=== PATIENT | female | born 1960 | race Caucasian/White ===

== ENCOUNTER 2017-05-23 11:36 | Emergency (ER) | payer MEDICARE ==
--- NOTE | 2017-05-23 12:12 | ERPHSYRPT ---
- History of Present Illness Time Seen by Provider: 05/23/17 12:00 Source: patient Exam Limitations: clinical condition Patient Subjective Stated Complaint: left foot pain and swelling for two weeks after injuring foot when she stepped on a lawn chair. saw family md but states it isn't getting any better. also has injection to right elbow 3 months ago and now is having pain, swelling and redness to elbow. also recently had drainage from elbow. denies any fever. Triage Nursing Assessment: ambulated to room per self. skin w/d, color normal. top of left foot is slightly swollen. good pedal pulse and cap refill. foot warm to touch. right elbow red and warm to touch. slight swelling noted. no drainage noted at this time. Physician History: PATIENT WITH A HISTORY OF RHEUMATOID ARTHRITIS STEPPED INTO FOLDING CHAIR WITH LEFT FOOT 3 WEEK AGO AND HAS PERSISTENT PAIN WITH SWELLING, AND PAIN UPON WEIGHT BEARING. PATIENT ALSO COMPLAINS OF WARMTH AND SWELLING BELOW RIGHT ELBOW INTERMITTENTLY FOR 2 MONTHS AFTER BEING INJECTED 2 MONTHS AGO. HAS BEEN PLACED ON 2 COURSES OF ANTIBIOTICS KEFLEX . DENIES FEVER OR CHILLS. Method of Injury: direct blow, twisted Occurred: other (3 WEEKS AGO) Quality: constant Severity of Pain-Max: moderate Severity of Pain-Current: moderate Lower Extremities Pain: foot: left Modifying Factors: Improves With: other (PAIN UPON WEIGHT BEARING) Associated Symptoms: other (PAIN UPON WEIGHT BEARING) Allergies/Adverse Reactions: No Known Drug Allergies Allergy (Verified 05/23/17 11:48) Home Medications: Albuterol/Ipratropium Mdi [Combivent Inhaler] 15 gm IH QID 04/24/13 [History ] Aspirin EC 81 mg [Ecotrin 81 mg] 81 mg PO DAILY 04/24/13 [History] Levothyroxine Sodium 75 Mcg [Synthroid 75 Mcg] 75 mcg PO DAILY 04/24/13 [ History] Lorazepam 1 mg [Ativan 1 MG] 1 mg PO HS PRN 04/24/13 [History] Methotrexate Sodium [Trexall] 40 mg PO WEEKLY 04/24/13 [History] Acetaminophen 325 mg [Tylenol 325 mg] 975 mg PO TID PRN 11/12/13 [History] Adalimumab [Humira] 40 mg SQ UD 10/04/17 [History] Ergocalciferol (Vitamin D2) [Vitamin D] 50,000 unit PO WEEKLY 05/23/17 [History] Metoprolol Succinate 50 mg [Toprol Xl 50 MG] 50 mg PO BID 05/23/17 [ History] Prednisone 5 mg [Deltasone 5 mg] 5 mg PO TID 05/23/17 [History] Hx Tetanus, Diphtheria Vaccination/Date Given: No Hx Influenza Vaccination/Date Given: No Hx Pneumococcal Vaccination/Date Given: No - Review of Systems Ears, Nose, & Throat: No Symptoms Respiratory: No Symptoms Cardiac: No Symptoms Abdominal/Gastrointestinal: No Symptoms Genitourinary Symptoms: No Symptoms Musculoskeletal: Injury, Joint Swelling - Past Medical History Pertinent Past Medical History: Yes Neurological History: No Pertinent History ENT History: No Pertinent History Cardiac History: Coronary Artery Disease, Hypertension, Myocardial Infarction ( [place]) Respiratory History: COPD Endocrine Medical History: Hypothyroidism Musculoskeletal History: Degenerative Disk Disease, Fibromyalgia, Rheumatoid Arthritis GI Medical History: GERD, Gallbladder Disease History: Renal Disease Psycho-Social History: Anxiety, Depression Female Reproductive Disorders: Other Other Medical History: barretts esoph - Past Surgical History Past Surgical History: Yes Neuro Surgical History: No Pertinent History Cardiac: Cardiac Catheterization, Cardiac Stent Respiratory: No Pertinent History Gastrointestinal: Other Genitourinary: No Pertinent History Musculoskeletal: No Pertinent History Female Surgical History: Hysterectomy, Tubal Ligation Other Surgical History: colonoscopy, egd,ANSON x two,MARIVEL tubal, tumor removed from back of head - Social History Smoking Status: Former smoker How long have you smoked: 30 Exposure to second hand smoke: No Drug Use: none Patient Lives Alone: Yes - Nursing Vital Signs Nursing Vital Signs: Initial Vital Signs Temperature 97.9 F 05/23/17 11:43 Pulse Rate 102 H 05/23/17 11:43 Respiratory Rate 16 05/23/17 11:43 Blood Pressure 158/92 05/23/17 11:43 O2 Sat by Pulse Oximetry 100 05/23/17 11:43 Pain Scale Pain Intensity 8 - Physical Exam General Appearance: no apparent distress Eyes, Ears, Nose, Throat Exam: normal ENT inspection Neck Exam: normal inspection Cardiovascular/Respiratory Exam: chest non-tender, normal breath sounds Foot Exam: right foot: soft tissue tenderness (MID TO DISTAL LEFT 2ND TO 5TH METATARSALS, MINIMAL SWELLING WITHOUT) Neuro/Tendon Exam: normal sensation, normal motor functions Mental Status Exam: alert, oriented x 3 Skin Exam: warm (RIGHT ELBOW OLECRANON WITH ERYTHEMA, WARMTH AND TENDERNESS, FROM RIGHT ELBOW, RIGHT RADIAL PULSE 2+) SpO2 Interpretation: normal SpO2: 100 Oxygen Delivery: Room Air - Radiology Exams Left Foot X-ray Interpretation: Discussed w/ radiologist, Negative, No Fracture Ordered Tests: Active Orders 24 hr Category Date Time Status FOOT (MINIMUM 3 VIEWS) Stat Exams 05/23/17 12:09 Completed - Progress Counseled pt/family regarding: diagnosis, need for follow-up, rad results - Departure Time of Disposition: 13:10 Departure Disposition: Home Clinical Impression: CONTUSION/STRAIN LEFT FOOT , RIGHT ELBOW OLECRANON BURSITIS Condition: Stable Critical Care Time: No Referrals: PEDRO JOYNER [Primary Care Provider] - Additional Instructions: ANTIBIOTIC AUGMENTIN 875MG TWICE DAILY FOR 10 DAYS. AMBULATE USING WALKER ASSISTANCE WITH NONWEIGHT BEARING LEFT FOOT FOR 1 WEEK. TYLENOL #3, EVERY 4 HOURS FOR PAIN. ELEVATE YOUR LEFT FOOT WHILE SITTING OR SUPINE POSITION FOR 1 WEEK. Prescriptions: Amox Tr/Potass Clav. 875 mg [Augmentin 875-125 Tablet] 875 mg PO BID #20 tablet Codeine Phosphate/APAP #3 [Tylenol #3 Tablet] 1 tab PO Q4-6HPRN PRN #15 tablet PRN Reason: Pain
--- NOTE | 2017-05-23 12:36 | XRAY ---
Indication: Pain following injury 3 weeks ago. Comparison: None 3 nonweightbearing views of the left foot demonstrates small heel spurs. Tiny curvilinear ossification near the base of the second proximal phalanx for which a fracture should be ruled out on a clinical basis. No other bony, articular, or soft tissue abnormalities.
[2017-05-23 13:46] VITALS: BP 121/84; PULSE 48; O2SAT 95
== END 2017-05-23 13:46 | disposition home or self-care (01) ==
LOC: ED 11:36
DX: S90.32XA Contusion of left foot, initial encounter (principal); S93.602A Unspecified sprain of left foot, initial encounter; M70.21 Olecranon bursitis, right elbow; W22.8XXA Striking against or struck by other objects, initial encounter
CPT/HCPCS: 73630; 99283

== ENCOUNTER 2017-05-28 12:20 | Emergency (ER) | payer MEDICARE ==
--- NOTE | 2017-05-28 12:53 | ERPHSYRPT ---
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 Triage Nursing Assessment: pt alert, resp easy,chest clear, skin w/d pink,now co pain to left lower leg, left wrist,and nose, had bleeding from nose at home, no bleeding now. ppp, no swelling to leg or wrist Physician History: The patient is a 57-year-old right-handed female with family complaining that she had been sleeping in a chair because she didn't feel well last night and when she got up from the chair to answer the door, she believes she passed out. The next thing she remembers is a group of people turning her over on the floor. She denies chest pain. She denies shortness of breath. She denies nausea or vomiting. She complains of head pain and nose pain. When she came to , she had blood clots in her nose. She also complains of left wrist pain and left shoulder pain. Her past medical history is significant for hypertension, anxiety, hypothyroidism, asthma, and rheumatoid arthritis. Witnessed: bystander Prior Episodes: single episode today Timing/Duration: today Precipitating Factors: lightheadedness Context: standing Loss of Consciousness: brief (seconds) Charcter of event(s): collapsed, became unresponsive Allergies/Adverse Reactions: No Known Drug Allergies Allergy (Verified 05/28/17 12:32) Home Medications: Albuterol/Ipratropium Mdi [Combivent Inhaler] 15 gm IH QID 04/24/13 [History ] Aspirin EC 81 mg [Ecotrin 81 mg] 81 mg PO DAILY 04/24/13 [History] Levothyroxine Sodium 75 Mcg [Synthroid 75 Mcg] 75 mcg PO DAILY 04/24/13 [ History] Lorazepam 1 mg [Ativan 1 MG] 1 mg PO HS PRN 04/24/13 [History] Methotrexate Sodium [Trexall] 40 mg PO WEEKLY 04/24/13 [History] Acetaminophen 325 mg [Tylenol 325 mg] 975 mg PO TID PRN 11/12/13 [History] Adalimumab [Humira] 40 mg SQ UD 05/23/17 [History] Ergocalciferol (Vitamin D2) [Vitamin D] 50,000 unit PO WEEKLY 05/23/17 [History] Metoprolol Succinate 50 mg [Toprol Xl 50 MG] 50 mg PO BID 05/23/17 [ History] Prednisone 5 mg [Deltasone 5 mg] 5 mg PO TID 05/23/17 [History] Hx Tetanus, Diphtheria Vaccination/Date Given: No Hx Influenza Vaccination/Date Given: No Hx Pneumococcal Vaccination/Date Given: No Immunizations Up to Date: Yes - Past Medical History Pertinent Past Medical History: Yes Neurological History: No Pertinent History ENT History: No Pertinent History Cardiac History: Coronary Artery Disease, Hypertension, Myocardial Infarction ( [place]) Respiratory History: COPD Endocrine Medical History: Hypothyroidism Musculoskeletal History: Degenerative Disk Disease, Fibromyalgia, Rheumatoid Arthritis GI Medical History: GERD, Gallbladder Disease History: Renal Disease Psycho-Social History: Anxiety, Depression Female Reproductive Disorders: Other Other Medical History: barretts esoph - Past Surgical History Past Surgical History: Yes Neuro Surgical History: No Pertinent History Cardiac: Cardiac Catheterization, Cardiac Stent Respiratory: No Pertinent History Gastrointestinal: Other Genitourinary: No Pertinent History Musculoskeletal: No Pertinent History Female Surgical History: Hysterectomy, Tubal Ligation Other Surgical History: colonoscopy, egd,ANSON x two,MARIVEL tubal, tumor removed from back of head - Social History Smoking Status: Never smoker How long have you smoked: 30 Exposure to second hand smoke: No Drug Use: none Patient Lives Alone: No - Female History Hx Last Menstrual Period: post - Review of Systems Constitutional: No Fever, No Chills Eyes: No Symptoms Ears, Nose, & Throat: No Symptoms Respiratory: No Cough, No Dyspnea Cardiac: No Chest Pain, No Edema, No Syncope Abdominal/Gastrointestinal: No Abdominal Pain, No Nausea, No Vomiting, No Diarrhea Genitourinary Symptoms: No Dysuria Musculoskeletal: Fall, Injury, No Back Pain, No Neck Pain Skin: No Rash Neurological: Headache Psychological: No Symptoms Endocrine: No Symptoms Hematologic/Lymphatic: No Symptoms Immunological/Allergic: No Symptoms All Other Systems: Reviewed and Negative Physical Exam - Nursing Vital Signs Nursing Vital Signs: Initial Vital Signs Temperature 98.6 F 05/28/17 12:23 Pulse Rate 95 H 05/28/17 12:23 Respiratory Rate 18 05/28/17 12:23 Blood Pressure 151/96 05/28/17 12:23 O2 Sat by Pulse Oximetry 97 05/28/17 12:23 Pain Scale Pain Intensity 5 - Gilberts Coma Scale Best Eye Response (Jesu): (4) open spontaneously Best Verbal Response (Gilberts): (5) oriented Best Motor Response (Jesu): (6) obeys commands Jesu Total: 15 - Physical Exam General Appearance: no apparent distress, alert Eye Exam: bilateral eye: PERRL, EOMI Ears, Nose, Throat Exam: other (nose is mildly swollen and tender.) Neck Exam: normal inspection, non-tender, supple, full range of motion Respiratory: normal breath sounds, lungs clear, No chest tenderness, No respiratory distress Cardiovascular: regular rate/rhythm, capillary refill <2 sec, No murmur, No pulse deficit Gastrointestinal: soft, No tenderness, No distention, No mass Pelvic Exam: not done Rectal Exam: not done Back Exam: normal inspection, normal range of motion, No CVA tenderness, No vertebral tenderness Extremity Exam: other (Examination of the left wrist reveals pain with movement , bruising, and reduced range of motion. 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 Exam: normal speech, PERRL, No facial droop Coordination/Gait: normal finger to nose Motor/Sensory: no motor deficit, no sensory deficit, no pronator drift Skin Exam: normal color, warm, dry, No rash SpO2 Interpretation: normal SpO2: 97 Oxygen Delivery: Room Air - Radiology Exams Left Shoulder X-ray Interpretation: Teleradiologist Report, Negative (Per Dr Aguilar) Left Wrist X-ray Interpretation: Teleradiologist Report, Negative (Per Dr Aguilar) - CT Exams Head CT Interpretation: Negative (Dr Aguilar) Cervical Spine CT Interpretation: Negative (per Dr Aguilar) Ordered Tests: Active Orders 24 hr Category Date Time Status Accucheck STAT Care 05/28/17 13:11 Active Circular Tank Cooper STAT Care 05/28/17 13:13 Active EKG-ER Only STAT Care 05/28/17 13:11 Active IV Insertion STAT Care 05/28/17 13:11 Active Orthostatic Vital Signs STAT Care 05/28/17 13:11 Active Pulse Oximetry (ED) STAT Care 05/28/17 13:11 Active CERVICAL SPINE WO CONTRAST [CT] Stat Exams 05/28/17 13:12 Completed HEAD WITHOUT CONTRAST [CT] Stat Exams 05/28/17 13:12 Completed SHOULDER Stat Exams 05/28/17 13:14 Completed WRIST (MIN 3 VIEWS) Stat Exams 05/28/17 13:14 Completed CBC W DIFF Stat Lab 05/28/17 13:35 Completed CMP Stat Lab 05/28/17 13:35 Completed CULTURE,URINE Stat Lab 05/28/17 13:35 Received ETHYL ALCOHOL Stat Lab 05/28/17 13:35 Completed TROPONIN Stat Lab 05/28/17 13:35 Completed UA W/ MICROSCOPIC Stat Lab 05/28/17 13:35 Completed Medication Summary Discontinued Medications Generic Name Dose Route Start Last Admin Trade Name Freq PRN Reason Stop Dose Admin Sodium Chloride 1,000 mls @ 999 mls/hr 05/28/17 13:11 05/28/17 14:43 Sodium Chloride 0.9% 1000 Ml IV 05/28/17 14:11 999 mls/hr .Q1H1M STA Administration Sodium Chloride Confirm 05/28/17 13:48 Sodium Chloride 0.9% 1000 Ml Administered 05/28/17 13:49 Dose 1,000 mls @ ud .ROUTE .STK-MED ONE Ceftriaxone Sodium/Dextrose 1 g in 50 mls @ 100 mls/hr 05/28/17 14:37 14:43 Rocephin 1 Gm-D5w 50 Ml Bag IV 05/28/17 15:06 100 mls/hr STAT STA Administration Ceftriaxone Sodium/Dextrose Confirm 05/28/17 14:40 Rocephin 1 Gm-D5w 50 Ml Bag Administered 05/28/17 14:41 Dose 1 g in 50 mls @ ud IV .STK-MED ONE Lab/Rad Data: Laboratory Result Diagrams 05/28/17 13:35 05/28/17 13:35 Laboratory Results 05/28/17 05/28/17 05/28/17 Range/Units 13:35 13:35 13:35 WBC 15.1 H (4.0-10.5) K/mm3 RBC 4.02 L (4.1-5.4) M/mm3 Hgb 10.6 L (12.0-16.0) gm/dl Hct 35.7 (35-47) % MCV 88.8 (78-100) fl MCH 26.3 (26-32) pg MCHC 29.7 L (32-36) g/dl RDW 16.3 H (11.5-14.0) % Plt Count 277 (150-450) K/mm3 MPV 12.2 H (6-9.5) fl Gran % 85.7 H (36.0-66.0) % Lymphocytes % 8.9 L (24.0-44.0) % Monocytes % 5.1 (0.0-12.0) % Eosinophils % 0.0 (0.00-5.0) % Basophils % 0.3 (0.0-0.4) % Basophils # 0.04 (0-0.4) Sodium 143 (136-145) mEq/L Potassium 4.5 (3.5-5.1) mEq/L Chloride 106 (98-107) mEq/L Carbon Dioxide 22.2 (21-32) mEq/L Anion Gap 18.9 H (5-15) MEQ/L BUN 15 (9-20) mg/dL Creatinine 1.39 H (0.55-1.30) mg/dl Estimated GFR 41 ML/MIN Glucose 133 H (70-110) MG/DL Calcium 9.2 (8.5-10.1) mg/dL Total Bilirubin 0.80 (0.2-1.0) mg/dL AST 13 L (15-37) U/L ALT 15 (12-78) U/L Alkaline Phosphatase 41 L (46-116) U/L Troponin I < 0.017 (0.000-0.056) ng/ml Serum Total Protein 7.7 (6.4-8.2) gm/dL Albumin 3.6 (3.4-5.0) g/dL Ur Collection Type Urine Color (YELLOW) Urine Appearance (CLEAR) Urine pH (5-6) Ur Specific [place] (1.005-1.025) Urine Protein (Negative) Urine Ketones (NEGATIVE) Urine Blood (0-5) Cand[place]/ul Urine Nitrite (NEGATIVE) Urine Bilirubin (NEGATIVE) Urine Urobilinogen (0-1) mg/dL Ur Leukocyte Esterase (NEGATIVE) Urine Microscopic WBC (0-5) /HPF Ur Epithelial Cells (FEW) /HPF Urine Bacteria (NEGATIVE) /HPF Urine Culture Reflexed (NO) Urine Glucose (NEGATIVE) mg/dL Ethyl Alcohol < 0.010 (0.00-0.01) % Specimen Received 05/28/17 Range/Units 13:35 WBC (4.0-10.5) K/mm3 RBC (4.1-5.4) M/mm3 Hgb (12.0-16.0) gm/dl Hct (35-47) % MCV (78-100) fl MCH (26-32) pg MCHC (32-36) g/dl RDW (11.5-14.0) % Plt Count (150-450) K/mm3 MPV (6-9.5) fl Gran % (36.0-66.0) % Lymphocytes % (24.0-44.0) % Monocytes % (0.0-12.0) % Eosinophils % (0.00-5.0) % Basophils % (0.0-0.4) % Basophils # (0-0.4) Sodium (136-145) mEq/L Potassium (3.5-5.1) mEq/L Chloride (98-107) mEq/L Carbon Dioxide (21-32) mEq/L Anion Gap (5-15) MEQ/L BUN (9-20) mg/dL Creatinine (0.55-1.30) mg/dl Estimated GFR ML/MIN Glucose (70-110) MG/DL Calcium (8.5-10.1) mg/dL Total Bilirubin (0.2-1.0) mg/dL AST (15-37) U/L ALT (12-78) U/L Alkaline Phosphatase (46-116) U/L Troponin I (0.000-0.056) ng/ml Serum Total Protein (6.4-8.2) gm/dL Albumin (3.4-5.0) g/dL Ur Collection Type CCMS Urine Color YELLOW (YELLOW) Urine Appearance CLEAR (CLEAR) Urine pH 6.0 (5-6) Ur Specific [place] 1.010 (1.005-1.025) Urine Protein NEGATIVE (Negative) Urine Ketones NEGATIVE (NEGATIVE) Urine Blood NEGATIVE (0-5) [place]/ul Urine Nitrite NEGATIVE (NEGATIVE) Urine Bilirubin NEGATIVE (NEGATIVE) Urine Urobilinogen NORMAL (0-1) mg/dL Ur Leukocyte Esterase 1+ (NEGATIVE) Urine Microscopic WBC 2-5 (0-5) /HPF Ur Epithelial Cells RARE (FEW) /HPF Urine Bacteria MODERATE (NEGATIVE) /HPF Urine Culture Reflexed YES (NO) Urine Glucose NEGATIVE (NEGATIVE) mg/dL Ethyl Alcohol (0.00-0.01) % Specimen Received 05-28-17 1411 - Progress Progress: improved Counseled pt/family regarding: lab results, diagnosis, need for follow-up, rad results - Departure Time of Disposition: 15:46 Departure Disposition: Home Clinical Impression: UTI (urinary tract infection), Syncope, Multiple contusions Condition: Stable Critical Care Time: No Referrals: PEDRO JOYNER [Primary Care Provider] - Additional Instructions: You had a fainting episode that likely was triggered by a urinary tract infection. You were given fluids and Rocephin 1 g by IV in the ER. Take ciprofloxacin 500 mg twice a day for 7 days. Follow-up in 2-3 days. Prescriptions: Ciprofloxacin [Cipro 500 MG] 1 tab PO BID #14 tablet
[2017-05-28] MEDS ORDERED: Sodium Chloride 0.9% 1000 ML 1,000 ML IV STA (13:11)
[2017-05-28 13:42] LABS: BASOPHIL % 0.3 % (0.0-0.4); Granulocytes % 85.7 % (36.0-66.0); Lymphocytes % 8.9 % (24.0-44.0); Mean Cell Volume 88.8 fl (78-100); Mean Platelet Volume 12.2 fl (6-9.5); Monocytes % 5.1 % (0.0-12.0); Platelet Count 277 K/mm3 (150-450); Red Blood Count 4.02 M/mm3 (4.1-5.4); Red Cell Distribution Width 16.3 % (11.5-14.0); White Blood Count 15.1 K/mm3 (4.0-10.5)
[2017-05-28 13:44] LABS: Mean Corpuscular Hemoglobin 26.3 pg (26-32)
[2017-05-28] MEDS ORDERED: Sodium Chloride 0.9% 1000 ML 1,000 ML ONE (13:48)
[2017-05-28 14:06] LABS: ALBUMIN 3.6 g/dL (3.4-5.0); ALKALINE PHOSPHATASE 41 U/L (46-116); ANION GAP 18.9 MEQ/L (5-15); BLOOD UREA NITROGEN 15 mg/dL (9-20); CHLORIDE 106 mEq/L (98-107); Carbon Dioxide 22.2 mEq/L (21-32); ETHYL ALCOHOL < 0.010 % (0.00-0.01); Glucose 133 MG/DL (70-110); Potassium 4.5 mEq/L (3.5-5.1); SGOT/AST 13 U/L (15-37); SGPT/ALT 15 U/L (12-78); SODIUM 143 mEq/L (136-145); Total Protein 7.7 gm/dL (6.4-8.2)
[2017-05-28 14:11] LABS: Bilirubin NEGATIVE (NEGATIVE); Blood NEGATIVE Ery/ul (0-5); COMPLETE URINE MICROSCOPIC? YES; Collection Type CCMS; Glucose NEGATIVE (NEGATIVE); Leukocyte Esterase 1+ (NEGATIVE)
[2017-05-28 14:12] LABS: ADD URINE CULTURE? YES (NO); Bacteria MODERATE /HPF (NEGATIVE); Epithelial Cells RARE /HPF (FEW)
--- NOTE | 2017-05-28 14:34 | XRAY ---
Indication: Head injury following syncope. Multiple contiguous axial images obtained through the head without contrast. Comparison: February 07, 2012. Again normal appearing brain parenchyma, ventricles, and bony calvarium. Visualized paranasal sinuses and mastoid air cells are pneumatized and clear. Impression: Stable normal CT head without contrast exam. CT DI 48.95
[2017-05-28] MEDS ORDERED: ROCEPHIN 1 Gm-D5w 50 ml Bag** 1 G/50 ML IVPB IV STA (14:37)
--- NOTE | 2017-05-28 14:37 | XRAY ---
ndication: Head injury following syncope. Multiple contiguous axial images obtained through the cervical spine. Sagittal and coronal reformatted images obtained. Comparison: None. Axial images negative for acute fracture, suspicious bony lesions, or spinal canal stenosis. Minimal atlantoaxial degenerative changes. Sagittal and coronal reformatted images demonstrates cervical lordotic straightening, positional versus paraspinal spasm. Disc spaces maintained. No acute compression fracture, subluxation, or jumped facet. Normal-appearing craniocervical junction. Visualized noncontrasted soft tissues demonstrate mild carotid calcifications, left greater than right. CT head reported separately. Impression: Cervical lordotic straightening, positional versus paraspinal spasm. Negative acute fracture/subluxation. CT DI 120.65
--- NOTE | 2017-05-28 14:39 | XRAY ---
Indication: Pain following fall. Comparison: None 3 views of the left shoulder demonstrates mild acromioclavicular degenerative arthropathy. No other bony, articular, or soft tissue abnormalities.
[2017-05-28] MEDS ORDERED: ROCEPHIN 1 Gm-D5w 50 ml Bag** 1 G/50 ML IVPB IV ONE (14:40)
--- NOTE | 2017-05-28 14:42 | XRAY ---
Indication: Pain following fall. Comparison: None 3 views of the left wrist demonstrates mild degenerative changes of the first metacarpal multangular articulation, radiocarpal joint space narrowing, and distal ulnar subcortical cyst. No other bony, articular, or soft tissue abnormalities.
[2017-05-28 15:16] VITALS: PULSE 68
[2017-05-28 15:59] VITALS: BP 134/78; O2SAT 99
== END 2017-05-28 16:00 | disposition home or self-care (01) ==
LOC: ED 12:20
DX: N39.0 Urinary tract infection, site not specified (principal); R55 Syncope and collapse; S00.33XA Contusion of nose, initial encounter; S60.212A Contusion of left wrist, initial encounter; S40.012A Contusion of left shoulder, initial encounter; I10 Essential (primary) hypertension; E03.9 Hypothyroidism, unspecified; F41.9 Anxiety disorder, unspecified; R51 Headache; M25.532 Pain in left wrist; M25.512 Pain in left shoulder; Z79.899 Other long term (current) drug therapy
CPT/HCPCS: 93041; 96365; 99284; 36000; 82962; 96360; 93005; 81000; 36415; 87186; 85025; 87077; 80053; 84484; 87086; 73110; 73030; 70450; 72125; G0481; J0696

== ENCOUNTER 2018-07-16 12:15 | Emergency (ER) | payer MEDICARE ==
--- NOTE | 2018-07-16 12:56 | ERPHSYRPT ---
- History of Present Illness Time Seen by Provider: 07/16/18 12:43 Source: patient Exam Limitations: no limitations Patient Subjective Stated Complaint: pt states "I am having severe lower back pain. The pain is shooting down into my left leg." Triage Nursing Assessment: PT alert and oriented X 3, skin pwd. Pt ambulates with a limp. PT in no apparent respiratory distress. no bruising or swelling noted to lower left back. Physician History: This is a 58-year-old white female with history of coronary artery disease, high blood pressure, COPD, hypothyroidism,, degenerative disc disease, rheumatoid arthritis, fibromyalgia. Patient states she has had a history of chronic back pain she states for the past month she's been having severe back pain located in the left lumbar region radiating down her left leg she states she occasionally has numbness in the area. She apparently seen by her family Dr. secondary to the same she was placed on gabapentin and a muscle relaxer she states that this is not helping her pain. She states she has not been able to get back in to see her family doctor. Past medical history includes coronary artery disease, high blood pressure, myocardial infarction, COPD, hypothyroidism, degenerative disc disease, fibromyalgia, rheumatoid arthritis, GERD, gallbladder disease, renal disease, anxiety, depression, Lincoln's esophagitis. Past surgical history includes cardiac catheter, cardiac stent, hysterectomy, tubal ligation, colonoscopy, EGD, ANSON, I lateral tubal., Tumors removed from the back of her head Social history negative tobacco alcohol or illicit drug use. . . Timing/Duration: other (symptoms chronic worse for the last month) Severity: moderate Modifying Factors: Improves With: nothing Associated Symptoms: No nausea, No vomiting, No abdominal pain, No shortness of breath, No heartburn, No diaphoresis, No cough, No chills, No chest pain, No fever, No headaches, No loss of appetite, No malaise, No rash, No syncope, No seizure, No weakness Allergies/Adverse Reactions: No Known Drug Allergies Allergy (Verified 05/28/17 12:32) Home Medications: Albuterol/Ipratropium Mdi [Combivent Inhaler] 15 gm IH QID 04/24/13 [History ] Aspirin EC 81 mg [Ecotrin 81 mg] 81 mg PO DAILY 04/24/13 [History] Levothyroxine Sodium 75 Mcg [Synthroid 75 Mcg] 75 mcg PO DAILY 04/24/13 [ History] Lorazepam 1 mg [Ativan 1 MG] 1 mg PO HS PRN 04/24/13 [History] Acetaminophen 325 mg [Tylenol 325 mg] 975 mg PO TID PRN 11/12/13 [History] Ergocalciferol (Vitamin D2) [Vitamin D] 50,000 unit PO WEEKLY 05/23/17 [History] Metoprolol Succinate 50 mg [Toprol Xl 50 MG] 50 mg PO BID 05/23/17 [ History] Prednisone 5 mg [Deltasone 5 mg] 5 mg PO TID 05/23/17 [History] Hydroxychloroquine Sulfate [Plaquenil] 200 mg PO BID 06/03/18 [History] Hx Tetanus, Diphtheria Vaccination/Date Given: Yes Hx Influenza Vaccination/Date Given: Yes Hx Pneumococcal Vaccination/Date Given: No Immunizations Up to Date: Yes - Review of Systems Constitutional: No Fever, No Chills Eyes: No Symptoms Ears, Nose, & Throat: No Symptoms Respiratory: No Cough, No Dyspnea Cardiac: No Chest Pain, No Edema, No Syncope Genitourinary Symptoms: No Dysuria Musculoskeletal: Back Pain (Pain left lumbar region radiating down her left hip) Skin: No Rash Neurological: No Dizziness, No Focal Weakness, No Sensory Changes Psychological: No Symptoms Endocrine: No Symptoms All Other Systems: Reviewed and Negative - Past Medical History Pertinent Past Medical History: Yes Neurological History: No Pertinent History ENT History: No Pertinent History Cardiac History: Coronary Artery Disease, Hypertension, Myocardial Infarction ( [facility]) Respiratory History: COPD Endocrine Medical History: Hypothyroidism Musculoskeletal History: Degenerative Disk Disease, Fibromyalgia, Rheumatoid Arthritis GI Medical History: GERD, Gallbladder Disease History: Renal Disease Psycho-Social History: Anxiety, Depression Female Reproductive Disorders: Other Other Medical History: barretts esoph. lupus - Past Surgical History Past Surgical History: Yes Neuro Surgical History: No Pertinent History Cardiac: Cardiac Catheterization, Cardiac Stent Respiratory: No Pertinent History Gastrointestinal: Other Genitourinary: No Pertinent History Musculoskeletal: No Pertinent History Female Surgical History: Hysterectomy, Tubal Ligation Other Surgical History: colonoscopy, egd,ANSON x two,MARIVEL tubal, tumor removed from back of head - Social History Smoking Status: Former smoker How long have you smoked: 30 Exposure to second hand smoke: No Drug Use: none Patient Lives Alone: Yes - Female History Hx Last Menstrual Period: no more Hx Now: No - Nursing Vital Signs Nursing Vital Signs: Initial Vital Signs Temperature 97.6 F 07/16/18 12:27 Pulse Rate 64 07/16/18 12:27 Respiratory Rate 18 07/16/18 12:27 Blood Pressure 202/97 07/16/18 12:27 O2 Sat by Pulse Oximetry 98 07/16/18 12:27 Pain Scale Pain Intensity [Left Back] 7 Pain Intensity 5 - Physical Exam General Appearance: no apparent distress, alert Eye Exam: PERRL/EOMI, eyes nml inspection Ears, Nose, Throat Exam: normal ENT inspection, TMs normal, pharynx normal, moist mucous membranes Neck Exam: normal inspection, non-tender, supple, full range of motion Respiratory Exam: normal breath sounds, lungs clear, No respiratory distress Cardiovascular Exam: regular rate/rhythm, normal heart sounds, normal peripheral pulses Gastrointestinal/Abdomen Exam: soft, normal bowel sounds, No tenderness, No mass Back Exam: other (tender with palpation left lumbar region) Extremity Exam: normal inspection, normal range of motion, pelvis stable Neurologic Exam: alert, oriented x 3, cooperative, 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 Who has a history of chronic back pain arrives with complaint of worsening of her back pain symptoms for one month states she's been having sharp shooting pains down the posterior left hip sometimes numbness in the left lower leg. Patient arrives she has tenderness with palpation in the left lumbar region patient is able to sit with her back flexed to 90 at the hips and her knees extended without problems. Sensation is intact to the lower extremities she has had no problems with her bowel or bladder. Will go ahead and obtain x-ray of the patient's lumbar spine. Patient apparently has already been placed on gabapentin and muscle relaxers by her family doctor she states she is almost out of muscle relaxers. Patient does state that she is driving and she has this history of Lincoln's so will avoid injectables patient states she is already on steroids secondary to her arthritis. 07/16/18 14:24 Lumbar spine complete 4 view X-ray Impression: 1. A metallic, H-shaped orthopedic device is seen projected over the spinous process of L4 and L5 in the midline. Correlate with prior surgical history. 2. Grade 1 anterior spondylolisthesis of L4 over L5 (about 9 mm and (without spondylolysis). Some mild lower lumbar facet joint arthropathy at L4-L5 and L5- S2 3. Approximately 23A rotary levoscoliosis centered at L1 4. The LPO image reveals a suggestive of a small focal saccular aneurysm within the proximal infrarenal abdominal aorta. This measures about 3.4 cm in diameter. Consider a CT of the abdomen and pelvis with IV contrast as a new baseline. 5. Bone demineralization is seen. Also some asymmetric enlargement of the transverse process of L5 on the right which pseudo-articulates with the upper right side of the sacrum. This represents a congenitaldevelopmental variant. The patient appears to be stable I have discussed the patient's x-ray findings with her as well as the possible aneurysm 3.4 cm in the proximal infrarenal abdominal aorta. I have offered to obtain appropriate laboratory work and obtain CT of this however the patient does not want to do this here she states she will follow-up with her family doctor. Will discharge patient. Diagnosis lumbar pain. Sciatica. Incidental finding 3.4 cm possible infrarenal aneurysm. - Departure Time of Disposition: 14:28 Departure Disposition: Home Clinical Impression: incidental possible 3.5 cm aortic aneury Back pain Qualifiers: Back pain location: low back pain Chronicity: acute Back pain laterality: left Sciatica presence: with sciatica Sciatica laterality: sciatica of left side Qualified Code(s): M54.42 - Lumbago with sciatica, left side Condition: Fair Critical Care Time: No Referrals: PEDRO JOYNER [Primary Care Provider] - Instructions: Low Back Pain (DC), Sciatica (DC) Additional Instructions: Return home. [place] as prescribed. Flexeril as prescribed. Follow-up with your family doctor. You have a possible 3.5 cm aneurysm in your proximal aorta. This will need follow-up and imaging. You have decided follow-up with your family doctor for this, it is recommended you do so. Return for acute distress or for severe symptoms.
--- NOTE | 2018-07-16 14:08 | XRAY ---
Exam: Five-view lumbar spine series from 07/16/2018. Comparison: C-arm images of the lower lumbar spine from 08/29/2013. Indication: 58-year-old female with low back pain radiating down left hip. Findings: AP, lateral, both oblique images, and a coned-down lateral film of the lumbosacral junction were obtained. There are 5 [id number] lumbar-type vertebra. An H-shaped metallic orthopedic device is seen overlying the spinous processes of L4 and L5 on the lateral images. The bones are demineralized. There is approximately a 23 rotary levoscoliosis centered at L1. There is asymmetric enlargement of the right L5 transverse process which pseudo-articulates with the upper right side of the sacrum. This represents a congenital/developmental variant. The sacroiliac joints reveal minimal vacuum phenomena within their inferior aspects. The oblique images reveal no evidence of spondylolysis. I note some vacuum phenomena within the right L4-L5 and left L5-S1 facet joints. There is grade 1 anterior spondylolisthesis of L4 over L5 (about 9 mm) without spondylolysis. On the LPO image, there is a focal bulge of the infrarenal abdominal aorta which measures roughly 3.4 cm in diameter. This may reflect a small focal saccular aneurysm. This is centered at the upper L3 level. It is also possible that this is due to some tortuosity, but I believe this is less likely. A slight left lateral bulge of the distal abdominal aorta is seen on coronal image #[address] study of the abdomen and pelvis on 03/08/2010. Small anterior vertebral endplate spurs are seen throughout the lumbar spine on the lateral radiographs. Impression: 1. A metallic, H-shaped orthopedic device is seen projected over the spinous processes of L4 and L5 in the midline. Correlate with prior surgical history. 2. Grade 1 anterior spondylolisthesis of L4 over L5 (about 9 mm) without spondylolysis. I do note some mild lower lumbar facet joint arthropathy at L4-L5 and L5-S1. 3. Approximately 23 rotary levoscoliosis centered at L1. 4. The LPO image reveals a suggestion of a small focal saccular aneurysm within the proximal infrarenal abdominal aorta. This measures about 3.4 cm in diameter. Consider a CT of the abdomen and pelvis with IV contrast as a new baseline. 5. Bone demineralization is seen. I also note some asymmetric enlargement of the transverse process of L5 on the right which pseudo-articulates with the upper right side of the sacrum. This represents a congenital/developmental variant.
[2018-07-16 14:43] VITALS: BP 184/88; PULSE 56; O2SAT 97
== END 2018-07-16 14:55 | disposition home or self-care (01) ==
LOC: ED 12:15
DX: M54.42 Lumbago with sciatica, left side (principal); M43.16 Spondylolisthesis, lumbar region; Z79.82 Long term (current) use of aspirin; Z79.899 Other long term (current) drug therapy
CPT/HCPCS: 72110; 99283

== ENCOUNTER 2019-03-12 11:31 | Day surgery (SDC) | payer MEDICARE ==
[2013-05-08 13:53] VITALS: BP 115/71
[2019-03-12] MEDS ORDERED: Decadron 4 MG INJ IJ ONE (11:32)
[2019-03-12] MEDS ORDERED: Ketamine HCl 50 MG/ML IJ ONE (11:32)
[2019-03-12] MEDS ORDERED: Xylocaine 1% Vial 30 ML PF IJ ONE (11:32)
[2019-03-12] MEDS ORDERED: DIPRIVAN 200 MG/20 ML IV ONE (11:32)
--- NOTE | 2019-03-12 14:16 | XRAY ---
Indication: Left piriformis injection. Intraoperative fluoroscopy was provided for 15 seconds. Single digital spot images submitted for interpretation demonstrates posterior needle tip projecting over the expected left piriformis muscle. Small amount of contrast injected for needle tip placement. Correlate with intraoperative findings/report.
--- NOTE | 2019-03-12 14:18 | XRAY ---
15 seconds fluoroscopy time in surgery for left piriformis injection.
[2019-03-12] MEDS ORDERED: Lactated Ringers 1,000 ML IV ONE (15:55)
== END 2019-03-12 13:30 | disposition home or self-care (01) ==
LOC: SDC-PAIN 11:31
PROVIDERS: ATTEND Psychiatry & Neurology Pain Medicine
DX: M79.18 Myalgia, other site (principal); I10 Essential (primary) hypertension; N18.9 Chronic kidney disease, unspecified; K21.9 Gastro-esophageal reflux disease without esophagitis; M06.9 Rheumatoid arthritis, unspecified; F41.9 Anxiety disorder, unspecified; Z79.899 Other long term (current) drug therapy
CPT/HCPCS: 72020; 77002; J1100; J2001; J2704

== ENCOUNTER 2019-03-26 07:50 | Day surgery (SDC) | payer MEDICARE ==
[2013-05-08 13:53] VITALS: BP 115/71
[2019-03-26] MEDS ORDERED: Xylocaine 1% Vial 30 ML PF IJ ONE (07:51)
[2019-03-26] MEDS ORDERED: Decadron 4 MG INJ IV ONE (07:51)
[2019-03-26] MEDS ORDERED: Ketamine HCl 50 MG/ML ONE (09:50)
[2019-03-26] MEDS ORDERED: DIPRIVAN 200 MG/20 ML IV ONE (09:50)
--- NOTE | 2019-03-26 10:51 | XRAY ---
Indication: Left piriformis injection. Intraoperative fluoroscopy was provided for 15 seconds. Single digital spot image submitted for interpretation demonstrates posterior needle tip projecting over the expected left piriformis muscle. Small amount of contrast injected for needle tip placement. Correlate with intraoperative findings/report.
--- NOTE | 2019-03-26 10:51 | XRAY ---
15 seconds fluoroscopy time in surgery for left piriformis muscle injection.
[2019-03-26] MEDS ORDERED: Lactated Ringers 1,000 ML IV ONE (13:44)
== END 2019-03-26 10:22 | disposition home or self-care (01) ==
LOC: SDC-PAIN 07:50
PROVIDERS: ATTEND Psychiatry & Neurology Pain Medicine
DX: M79.18 Myalgia, other site (principal); I10 Essential (primary) hypertension; I12.9 Hypertensive chronic kidney disease with stage 1 through stage 4 chronic kidney disease, or unspecified chronic kidney disease; N18.9 Chronic kidney disease, unspecified; K21.9 Gastro-esophageal reflux disease without esophagitis; M06.9 Rheumatoid arthritis, unspecified; F41.8 Other specified anxiety disorders; Z79.899 Other long term (current) drug therapy
CPT/HCPCS: 20552; 72020; 77002; J1100; J2001; J2704; Q9966

== ENCOUNTER 2019-04-23 11:15 | Day surgery (SDC) | payer MEDICARE ==
[2013-05-08 13:53] VITALS: BP 115/71
[2019-04-23] MEDS ORDERED: Depo-Medrol 40 MG/ML IM ONE (11:16)
[2019-04-23] MEDS ORDERED: Sodium Chloride 0.9(Preservative Free) 10 ML IJ ONE (11:16)
[2019-04-23] MEDS ORDERED: Ketamine HCl 50 MG/ML ONE (12:16)
[2019-04-23] MEDS ORDERED: DIPRIVAN 200 MG/20 ML IV ONE (12:16)
--- NOTE | 2019-04-23 13:37 | XRAY ---
33 seconds fluoroscopy time in surgery for left L4-S1 ANSON.
--- NOTE | 2019-04-23 13:40 | XRAY ---
Indication: L4-S1 ANSON. Intraoperative fluoroscopy was provided for 33 seconds. 3 digital spot images submitted for interpretation demonstrates posterior needle tip projecting over the expected course of the left L4 nerve root. Small amount of contrast injected for needle tip placement. Correlate with intraoperative findings/report. Incidental L4-L5 posterior spinous process fixation hardware.
[2019-04-23] MEDS ORDERED: Lactated Ringers 1,000 ML IV ONE (15:53)
== END 2019-04-23 12:43 | disposition home or self-care (01) ==
LOC: SDC-PAIN 11:15
PROVIDERS: ATTEND Psychiatry & Neurology Pain Medicine
DX: M54.16 Radiculopathy, lumbar region (principal); I12.9 Hypertensive chronic kidney disease with stage 1 through stage 4 chronic kidney disease, or unspecified chronic kidney disease; N18.9 Chronic kidney disease, unspecified; K21.9 Gastro-esophageal reflux disease without esophagitis; M06.9 Rheumatoid arthritis, unspecified; F41.9 Anxiety disorder, unspecified; Z79.899 Other long term (current) drug therapy
CPT/HCPCS: 72100; 77003; J1030; J2704

== ENCOUNTER 2020-09-13 11:48 | Emergency (ER) | payer MEDICARE ==
[2020-09-13] MEDS ORDERED: Sodium Chloride 0.9% 1000 ML 1,000 ML IV SCH (12:15)
[2020-09-13] MEDS ORDERED: MORPHINE SULFATE 2 MG INJ IV ONE (12:19)
[2020-09-13] MEDS ORDERED: Sodium Chloride 0.9% 1000 ML 1,000 ML ONE (12:20)
--- NOTE | 2020-09-13 12:22 | ERPHSYRPT ---
- History of Present Illness Time Seen by Provider: 09/13/20 12:18 Historian: patient Exam Limitations: no limitations Patient Subjective Stated Complaint: pt states sunday after turning to get something in car and started having right quad pain, she denies back pain, no b urning with urination, no nausea, Triage Nursing Assessment: pt walked in, resp labored with excertion, she states its from pain, face masl in place,skin w/d/p. no edema, abd soft but tender Physician History: Patient is a 60-year-old female presents to our ED with complaints of right flank pain. Patient states pain started 3 days ago on Sunday. Patient was turning in her car when the pain started. Since then patient has been experiencing the same pain. Patient has had trouble sleeping. Pain worse with movement and palpation. Pain improved with rest. Patient denies trauma. No fever. No nausea or vomiting. No diarrhea. No rash. Symptoms are mild to moderate in intensity. Patient denies a history of the same. She voices no oth er complaints at this time. Timing/Duration: day(s) (3 days ago) Activities at Onset: activity (Patient was turning in her vehicle when pain started.) Quality: aching Abdominal Pain Onset Location: flank Pain Radiation: no radiation Severity of Pain-Max: moderate Severity of Pain-Current: mild Modifying Factors: Improves With: movement Associated Symptoms: denies symptoms, No back, No chest pain, No diaphoresis, No diarrhea, No headache, No heartburn, No nausea, No neck pain, No vomiting Previous symptoms: no prior history Allergies/Adverse Reactions: No Known Drug Allergies Allergy (Verified 09/13/20 12:06) Home Medications: Albuterol/Ipratropium Mdi [Combivent Inhaler] 15 gm IH QID 04/24/13 [History] Aspirin EC 81 mg [Ecotrin 81 mg] 81 mg PO DAILY 04/24/13 [History] Levothyroxine Sodium 75 Mcg [Synthroid 75 Mcg] 75 mcg PO DAILY 04/24/13 [History] Lorazepam 1 mg [Ativan 1 MG] 1 mg PO HS PRN 04/24/13 [History] Acetaminophen 325 mg [Tylenol 325 mg] 975 mg PO TID PRN 11/12/13 [History] Ergocalciferol (Vitamin D2) [Vitamin D] 50,000 unit PO WEEKLY 05/23/17 [History] Metoprolol Succinate 50 mg [Toprol Xl 50 MG] 50 mg PO BID 05/23/17 [History] Prednisone 5 mg [Deltasone 5 mg] 20 mg PO DAILY 05/23/17 [History] Hydroxychloroquine Sulfate [Plaquenil] 200 mg PO BID 06/03/18 [History] Simvastatin 1 ea DAILY 09/13/20 [History] Hx Tetanus, Diphtheria Vaccination/Date Given: Yes Hx Influenza Vaccination/Date Given: Yes Hx Pneumococcal Vaccination/Date Given: Yes Immunizations Up to Date: No Travel Risk - International Travel Have you traveled outside of the country in past 3 weeks: No - Coronavirus Screening Are you exhibiting any of the following symptoms?: No Close contact with a COVID-19 positive Pt in past 14-21 Days: No - Review of Systems Constitutional: No Symptoms, No Fever, No Chills Eyes: No Symptoms Ears, Nose, & Throat: No Symptoms Respiratory: No Symptoms, No Cough, No Dyspnea Cardiac: No Symptoms, No Chest Pain, No Edema, No Syncope Abdominal/Gastrointestinal: No Symptoms, No Abdominal Pain, No Nausea, No Vomiting, No Diarrhea Genitourinary Symptoms: No Symptoms, No Dysuria Musculoskeletal: No Symptoms, No Back Pain, No Neck Pain Skin: No Symptoms, No Rash Neurological: No Symptoms, No Dizziness, No Focal Weakness, No Sensory Changes Psychological: No Symptoms Endocrine: No Symptoms Hematologic/Lymphatic: No Symptoms Immunological/Allergic: No Symptoms All Other Systems: Reviewed and Negative - Past Medical History Pertinent Past Medical History: Yes Neurological History: No Pertinent History ENT History: No Pertinent History Cardiac History: Coronary Artery Disease, High Cholesterol, Hypertension, Myocardial Infarction ([place]) Respiratory History: No Pertinent History Endocrine Medical History: Hypothyroidism, Other Musculoskeletal History: Fibromyalgia, Rheumatoid Arthritis, Other GI Medical History: GERD, Gallbladder Disease History: Renal Disease Psycho-Social History: Anxiety, Depression Female Reproductive Disorders: Other Other Medical History: PATIENT HAD [place] 2010 AND HAD ONE STENT PLACED. AT THAT TIME FOUND OUT SHE ONE KIDNEY HAD DETERIORATED AND OTHER KIDNEY FUNCTIONING AT LESS THAN 50%. ALSO HAS SYSTEMIC LUPUS. 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 - Past Surgical History Past Surgical History: Yes Neuro Surgical History: No Pertinent History Cardiac: Cardiac Catheterization, Cardiac Stent Respiratory: No Pertinent History Gastrointestinal: Other Genitourinary: No Pertinent History Musculoskeletal: No Pertinent History Female Surgical History: Hysterectomy, Tubal Ligation Other Surgical History: colonoscopy, egd,ANSON x two,MARIVEL tubal, tumor removed from back of head - Social History Smoking Status: Former smoker How long have you smoked: 30 Exposure to second hand smoke: No Drug Use: none Patient Lives Alone: Yes - Female History Hx Last Menstrual Period: post Hx Now: No - Nursing Vital Signs Nursing Vital Signs: Initial Vital Signs Temperature 97 F 09/13/20 12:09 Pulse Rate 84 09/13/20 12:09 Respiratory Rate 18 09/13/20 12:09 Blood Pressure 142/95 09/13/20 12:09 O2 Sat by Pulse Oximetry 97 09/13/20 12:09 Pain Scale Pain Intensity 3 - Physical Exam General Appearance: no apparent distress, alert Eye Exam: PERRL/EOMI, eyes nml inspection Ears, Nose, Throat Exam: normal ENT inspection, pharynx normal, moist mucous membranes Neck Exam: normal inspection, non-tender, supple, full range of motion Respiratory Exam: normal breath sounds, lungs clear, No respiratory distress Cardiovascular Exam: regular rate/rhythm, normal heart sounds Gastrointestinal/Abdomen Exam: soft, tenderness (Tenderness to palpation right flank. Overlying soft tissue intact. No signs of trauma. No CVA tenderness.), No mass Back Exam: normal inspection, normal range of motion, No CVA tenderness, No vertebral tenderness Extremity Exam: normal inspection, normal range of motion, pelvis stable Neurologic Exam: alert, oriented x 3, cooperative, normal mood/affect, nml cerebellar function, sensation nml, No motor deficits Skin Exam: normal color, warm, dry SpO2: 97 - Course Nursing assessment & vital signs reviewed: Yes EKG Interpreted by Me: RATE ([id number]), Sinus Rhythm, NORMAL AXIS, NORMAL INTERVALS Ordered Tests: Active Orders 24 hr Category Date Time Status Network Support Analyst STAT Care 09/13/20 12:13 Active EKG-ER Only STAT Care 09/13/20 12:12 Active IV Insertion STAT Care 09/13/20 12:12 Active ABDOMEN AND PELVIS W/0 CONTRAS [CT] Stat Exams 09/13/20 12:13 Completed CBC W DIFF Stat Lab 09/13/20 12:30 Completed CMP Stat Lab 09/13/20 12:30 Completed CULTURE,URINE Stat Lab 09/13/20 12:15 Received MAGNESIUM Stat Lab 09/13/20 12:30 Completed TROPONIN Q3H Lab 09/13/20 12:30 Completed TROPONIN Q3H Lab 09/13/20 15:15 Ordered TROPONIN Q3H Lab 09/13/20 18:15 Ordered TROPONIN Q3H Lab 09/13/20 21:15 Ordered TROPONIN Q3H Lab 09/14/20 00:15 Ordered UA W/RFX UR CULTURE Stat Lab 09/13/20 12:15 Completed Medication Summary Generic Name Dose Route Start Last Admin Trade Name Freq PRN Reason Stop Dose Admin Sodium Chloride 1,000 mls @ 100 mls/hr 09/13/20 12:15 09/13/20 12:21 Sodium Chloride 0.9% 1000 Ml IV 10/13/20 12:14 100 mls/hr .Q10H [place] Administration Discontinued Medications Generic Name Dose Route Start Last Admin Trade Name Freq PRN Reason Stop Dose Admin Ceftriaxone Sodium/Dextrose 1 g in 50 mls @ 100 mls/hr 09/13/20 13:00 09/13/20 13:17 Rocephin 1 Gm-D5w 50 Ml Bag IV 09/13/20 13:29 200 ml/hr STAT ONE 200 mls/hr Administration Ceftriaxone Sodium/Dextrose Confirm 09/13/20 13:12 Rocephin 1 Gm-D5w 50 Ml Bag Administered 09/13/20 13:13 Dose 1 g in 50 mls @ ud IV .STK-MED ONE Morphine Sulfate 2 mg 09/13/20 12:19 09/13/20 12:37 Morphine Sulfate 2 Mg Inj IV 09/13/20 12:20 2 mg STAT ONE Administration Morphine Sulfate Confirm 09/13/20 12:36 Morphine Sulfate 2 Mg Inj Administered 09/13/20 12:37 Dose 2 mg .ROUTE .STK-MED ONE Lab/Rad Data: Laboratory Result Diagrams 09/13/20 12:30 09/13/20 12:30 Laboratory Results 09/13/20 09/13/20 09/13/20 Range/Units 12:30 12:30 12:30 WBC 8.8 (4.0-10.5) K/mm3 RBC 4.63 (4.1-5.4) M/mm3 Hgb 13.7 (12.0-16.0) gm/dl Hct 44.3 (35-47) % MCV 95.7 (78-100) fl MCH 29.6 (26-32) pg MCHC 30.9 L (32-36) g/dl RDW 15.5 H (11.5-14.0) % Plt Count 175 (150-450) K/mm3 MPV 11.7 H (7.5-11.0) fl Gran % 70.1 H (36.0-66.0) % Eos # (Auto) 0.03 (0-0.5) Absolute Lymphs (auto) 2.01 (1.0-4.6) Absolute Monos (auto) 0.56 (0.0-1.3) Lymphocytes % 22.9 L (24.0-44.0) % Monocytes % 6.4 (0.0-12.0) % Eosinophils % 0.3 (0.00-5.0) % Basophils % 0.3 (0.0-0.4) % Absolute Granulocytes 6.14 (1.4-6.9) Basophils # 0.03 (0-0.4) Sodium 139 (137-145) mmol/L Potassium 3.5 (3.5-5.1) mmol/L Chloride 108 H (98-107) mmol/L Carbon Dioxide 25 (22-30) mmol/L Anion Gap 10.1 (5-15) MEQ/L BUN 32 H (7-17) mg/dL Creatinine 1.10 H (0.52-1.04) mg/dL Estimated GFR 53.7 ML/MIN Glucose 97 (74-106) mg/dL Calcium 9.3 (8.4-10.2) mg/dL Magnesium 1.8 (1.6-2.3) mg/dL Total Bilirubin 1.00 (0.2-1.3) mg/dL AST 19 (14-36) U/L ALT 12 (0-35) U/L Alkaline Phosphatase 33 L (38-126) U/L Troponin I < 0.012 (0.000-0.034) ng/mL Serum Total Protein 6.6 (6.3-8.2) g/dL Albumin 3.9 (3.5-5.0) g/dL Urine Color (YELLOW) Urine Appearance (CLEAR) Urine pH (5-6) Ur Specific Shirley (1.005-1.025) Urine Protein (Negative) Urine Ketones (NEGATIVE) Urine Blood (0-5) Candelario/ul Urine Nitrite (NEGATIVE) Urine Bilirubin (NEGATIVE) Urine Urobilinogen (0-1) mg/dL Ur Leukocyte Esterase (NEGATIVE) Urine WBC (Auto) (0-5) /HPF Urine RBC (Auto) (0-2) /HPF U Epithel Cells (Auto) (FEW) /HPF Urine Bacteria (Auto) (NEGATIVE) /HPF Urine Mucus (Auto) (NEGATIVE) /HPF Urine Culture Reflexed (NO) Urine Glucose (NEGATIVE) mg/dL 09/13/20 Range/Units 12:15 WBC (4.0-10.5) K/mm3 RBC (4.1-5.4) M/mm3 Hgb (12.0-16.0) gm/dl Hct (35-47) % MCV (78-100) fl MCH (26-32) pg MCHC (32-36) g/dl RDW (11.5-14.0) % Plt Count (150-450) K/mm3 MPV (7.5-11.0) fl Gran % (36.0-66.0) % Eos # (Auto) (0-0.5) Absolute Lymphs (auto) (1.0-4.6) Absolute Monos (auto) (0.0-1.3) Lymphocytes % (24.0-44.0) % Monocytes % (0.0-12.0) % Eosinophils % (0.00-5.0) % Basophils % (0.0-0.4) % Absolute Granulocytes (1.4-6.9) Basophils # (0-0.4) Sodium (137-145) mmol/L Potassium (3.5-5.1) mmol/L Chloride (98-107) mmol/L Carbon Dioxide (22-30) mmol/L Anion Gap (5-15) MEQ/L BUN (7-17) mg/dL Creatinine (0.52-1.04) mg/dL Estimated GFR ML/MIN Glucose (74-106) mg/dL Calcium (8.4-10.2) mg/dL Magnesium (1.6-2.3) mg/dL Total Bilirubin (0.2-1.3) mg/dL AST (14-36) U/L ALT (0-35) U/L Alkaline Phosphatase (38-126) U/L Troponin I (0.000-0.034) ng/mL Serum Total Protein (6.3-8.2) g/dL Albumin (3.5-5.0) g/dL Urine Color YELLOW (YELLOW) Urine Appearance CLOUDY (CLEAR) Urine pH 5.0 (5-6) Ur Specific Shirley 1.024 (1.005-1.025) Urine Protein 30 (Negative) Urine Ketones NEGATIVE (NEGATIVE) Urine Blood NEGATIVE (0-5) Candelario/ul Urine Nitrite NEGATIVE (NEGATIVE) Urine Bilirubin NEGATIVE (NEGATIVE) Urine Urobilinogen NEGATIVE (0-1) mg/dL Ur Leukocyte Esterase LARGE (NEGATIVE) Urine WBC (Auto) >100 (0-5) /HPF Urine RBC (Auto) 3-5 (0-2) /HPF U Epithel Cells (Auto) RARE (FEW) /HPF Urine Bacteria (Auto) MODERATE (NEGATIVE) /HPF Urine Mucus (Auto) SLIGHT (NEGATIVE) /HPF Urine Culture Reflexed YES (NO) Urine Glucose NEGATIVE (NEGATIVE) mg/dL - Progress Progress: improved Progress Note: 09/13/20 13:59 Patient reassessed. Pain improved. Vitals stable. Work-up reveals urinary tract infection. Patient received a gram Rocephin in our ED. A prescription for Keflex was forwarded to patient's pharmacy. Incidentally CAT scan observed a 2.6 cm AAA. Patient is aware of this finding. We establish an appointment for follow-up in Dr. Pat office. Patient agrees to follow-up within 48 hours for reevaluation. Patient voices no other complaints or concerns at this time. 09/13/20 14:00 patient's appointment is September 27 9:50 AM with Shaheen Pat. Counseled pt/family regarding: lab results, diagnosis, need for follow-up, rad results - Departure Departure Disposition: Home Clinical Impression: UTI (urinary tract infection), Flank pain, Hiatal hernia, Nephrolithiasis, Sigmoid diverticulosis, AAA (abdominal aortic aneurysm), Levoscoliosis Condition: Stable Critical Care Time: No Referrals: PEDRO JOYNER [Primary Care Provider] - Additional Instructions: Discharge/Care Plan SHAYE GODINEZ was seen on 09/13/20 in the Emergency Room. The patient was counseled regarding Diagnosis,Lab results, Imaging studies, need for follow up and when to return to the Emergency Room. Prescriptions given: Discharge Note I have spoken with the patient and/or caregivers. I have explained the patient's condition, diagnosis and treatment plan based on the information available to me at this time. I have answered the patient's and/or caregiver's questions and addressed any concerns. The patient and/or caregivers have as good understanding of the patient's diagnosis, condition and treatment plan as can be expected at this point. The vital signs have been stable. The patient's condition is stable and appropriate for discharge from the emergency department. The patient will pursue further outpatient evaluation with the primary care physician or other designated or consulting physician as outlined in the discharge instructions. The patient and/or caregivers are agreeable to this plan of care and follow-up instructions have been explained in detail. The patient and/or caregivers have received these instruction. The patient/and or caregivers are aware that any significant change in condition or worsening of symptoms should prompt an immediate return to this or the closest emergency department or call 911. Prescriptions: Cephalexin Mh 500 mg [Keflex 500 mg] 500 mg PO QID #28 capsule
[2020-09-13] MEDS ORDERED: MORPHINE SULFATE 2 MG INJ ONE (12:36)
[2020-09-13 12:42] LABS: Absolute Neutrophil Ct (ANC) 6.14 (1.4-6.9); BASOPHIL % 0.3 % (0.0-0.4); Basophil (Absolute #) 0.03 (0-0.4); Eosinophil % 0.3 % (0.00-5.0); Eosinophil (Absolute #) 0.03 (0-0.5); Hematocrit 44.3 % (35-47); Hemoglobin 13.7 gm/dl (12.0-16.0); Lymphocyte (Absolute #) 2.01 (1.0-4.6); Lymphocytes % 22.9 % (24.0-44.0); Mean Cell Volume 95.7 fl (78-100); Mean Corpuscular Hemoglobin 29.6 pg (26-32); Mean Corpuscular Hgb Concent. 30.9 g/dl (32-36); Mean Platelet Volume 11.7 fl (7.5-11.0); Monocyte (Absolute #) 0.56 (0.0-1.3); Monocytes % 6.4 % (0.0-12.0); Neutrophil % 70.1 % (36.0-66.0); Platelet Count 175 K/mm3 (150-450); Red Blood Count 4.63 M/mm3 (4.1-5.4); Red Cell Distribution Width 15.5 % (11.5-14.0); White Blood Count 8.8 K/mm3 (4.0-10.5)
[2020-09-13 12:52] LABS: ALBUMIN 3.9 g/dL (3.5-5.0); ANION GAP 10.1 MEQ/L (5-15); Calcium 9.3 mg/dL (8.4-10.2); Creatinine 1 1.1 mg/dL (0.52-1.04); EST GLOMERULAR FILTRATION RATE 53.7 ML/MIN; MAGNESIUM 1.8 mg/dL (1.6-2.3); Potassium 3.5 mmol/L (3.5-5.1); Total Protein 6.6 g/dL (6.3-8.2)
[2020-09-13 12:55] LABS: Appearance CLOUDY (CLEAR); Bacteria MODERATE /HPF (NEGATIVE); Bilirubin NEGATIVE (NEGATIVE); Blood NEGATIVE Ery/ul (0-5); Epithelial Cells RARE /HPF (FEW); Glucose NEGATIVE (NEGATIVE); Ketones NEGATIVE (NEGATIVE); Leukocyte Esterase LARGE (NEGATIVE); Mucus SLIGHT /HPF (NEGATIVE); Nitrite NEGATIVE (NEGATIVE); Protein,Urine Dip 30 (Negative); Specific Gravity 1.024 (1.005-1.025); Urobilinogen NEGATIVE mg/dL (0-1); WBC >100 /HPF (0-5)
[2020-09-13] MEDS ORDERED: ROCEPHIN 1 Gm-D5w 50 ml Bag** 1 G/50 ML IVPB IV ONE ×2 (13:00→13:12)
--- NOTE | 2020-09-13 13:21 | XRAY ---
Indication: Right abdomen pain 3 days. Chills. Multiple contiguous axial images obtained through the abdomen and pelvis without contrast using renal stone protocol. Comparison: June 08, 2011. Lung bases demonstrates mild bilateral dependent atelectasis. Heart is not enlarged. Again moderate sized hiatal hernia with partial intrathoracic stomach. Left kidney remains atrophic with a new nonobstructing 2-3 mm lower pole calculus. Right kidney negative for renal calculus or evidence for obstructive uropathy. Noncontrasted stomach and bowel loops nonobstructed. New mild sigmoid diverticulosis without diverticulitis. Appendectomy and hysterectomy reported. No free fluid/air. Remaining liver, gallbladder, pancreas, spleen, adrenal glands, kidneys, ureters, and bladder are unremarkable for noncontrast exam. Increasing mild scattered vascular calcifications with new 2.6 cm distal AAA. Osseous structures demonstrates new 6-7 minor L4 anterolisthesis and new L4-L5 posterior fusion surgery with intact spinal hardware. Stable mild levorotoscoliosis centered at L2. Impression: 1. Stable left renal atrophy with new nonobstructing micro-calculus. No right renal calculus or evidence for obstructive uropathy. 2. Mild worsening arteriosclerotic disease with new 2.6 cm distal AAA. 3. New L4 grade 1 anterolisthesis with bilateral L4-L5 posterior fusion surgery. 4. New sigmoid diverticulosis without diverticulitis. 5. Again incidental hiatal hernia with partial intrathoracic stomach.
[2020-09-13 14:43] VITALS: BP 139/84; PULSE 73; O2SAT 98
== END 2020-09-13 14:44 | disposition home or self-care (01) ==
LOC: ED 11:48
DX: N39.0 Urinary tract infection, site not specified (principal); R10.9 Unspecified abdominal pain; K44.9 Diaphragmatic hernia without obstruction or gangrene; N20.0 Calculus of kidney; K57.10 Diverticulosis of small intestine without perforation or abscess without bleeding; I71.4 Abdominal aortic aneurysm, without rupture; M41.80 Other forms of scoliosis, site unspecified
CPT/HCPCS: 36000; 36415; 74176; 80053; 81001; 83735; 84484; 85025; 87077; 87086; 87186; 93005; 93041; 96360; 96361; 96365; 96374; 99284; J0696; J2270

== ENCOUNTER 2020-11-12 11:30 | Emergency (ER) | payer MEDICARE ==
--- NOTE | 2020-11-12 11:42 | ERPHSYRPT ---
- History of Present Illness Time Seen by Provider: 11/12/20 11:42 Source: patient Exam Limitations: no limitations Physician History: This is a 60-year-old white female who has chronic left foot pain and presents with worsening pain in the last week and a half. She does not recall a specific incident where she had trauma such as a fall or direct injury. However, the pain is worse on the dorsal aspect of her left foot. She does have arthritis and chronic digit abnormalities. She has an appointment to see a developer programmer on 12/01/2020. She was concerned that she could not hold off this long because of the pain. She states that Tylenol with codeine does help her pain. However, she would like an x-ray to make sure she has not suffered a fracture. Method of Injury: unknown Occurred: other (A week and a half ago) Quality: aching, throbbing Severity of Pain-Max: moderate Severity of Pain-Current: mild (Mild to moderate) Lower Extremities Pain: foot: left (Dorsal aspect) Modifying Factors: Improves With: movement Associated Symptoms: other (Hurts to bear weight) Allergies/Adverse Reactions: No Known Drug Allergies Allergy (Verified 11/12/20 11:46) Home Medications: Albuterol/Ipratropium Mdi [Combivent Inhaler] 15 gm IH QID 04/24/13 [History] Aspirin EC 81 mg [Ecotrin 81 mg] 81 mg PO DAILY 04/24/13 [History] Levothyroxine Sodium 75 Mcg [Synthroid 75 Mcg] 75 mcg PO DAILY 04/24/13 [History] Lorazepam 1 mg [Ativan 1 MG] 1 mg PO HS PRN 04/24/13 [History] Acetaminophen 325 mg [Tylenol 325 mg] 975 mg PO TID PRN 11/12/13 [History] Ergocalciferol (Vitamin D2) [Vitamin D] 50,000 unit PO WEEKLY 05/23/17 [History] Metoprolol Succinate 50 mg [Toprol Xl 50 MG] 50 mg PO BID 05/23/17 [History] Prednisone 5 mg [Deltasone 5 mg] 20 mg PO DAILY 05/23/17 [History] Hydroxychloroquine Sulfate [Plaquenil] 200 mg PO BID 06/03/18 [History] Simvastatin 1 ea DAILY 09/13/20 [History] Hx Tetanus, Diphtheria Vaccination/Date Given: Yes Hx Influenza Vaccination/Date Given: Yes Hx Pneumococcal Vaccination/Date Given: Yes Travel Risk - International Travel Have you traveled outside of the country in past 3 weeks: No - Coronavirus Screening Are you exhibiting any of the following symptoms?: No Close contact with a COVID-19 positive Pt in past 14-21 Days: No - Review of Systems Constitutional: No Symptoms Eyes: No Symptoms Ears, Nose, & Throat: No Symptoms Respiratory: No Symptoms Cardiac: No Symptoms Abdominal/Gastrointestinal: No Symptoms Genitourinary Symptoms: No Symptoms Musculoskeletal: Other (Left foot pain) Skin: No Symptoms Neurological: No Symptoms Psychological: No Symptoms Endocrine: No Symptoms Hematologic/Lymphatic: No Symptoms Immunological/Allergic: No Symptoms All Other Systems: Reviewed and Negative - Past Medical History Pertinent Past Medical History: Yes Neurological History: No Pertinent History ENT History: No Pertinent History Cardiac History: Coronary Artery Disease, High Cholesterol, Hypertension, Myocardial Infarction ([place]) Respiratory History: No Pertinent History Endocrine Medical History: Hypothyroidism, Other Musculoskeletal History: Fibromyalgia, Rheumatoid Arthritis, Other GI Medical History: GERD, Gallbladder Disease History: Renal Disease Psycho-Social History: Anxiety, Depression Female Reproductive Disorders: Other Other Medical History: PATIENT HAD [place] 2010 AND HAD ONE STENT PLACED. AT THAT TIME FOUND OUT SHE ONE KIDNEY HAD DETERIORATED AND OTHER KIDNEY FUNCTIONING AT LESS THAN 50%. ALSO HAS SYSTEMIC LUPUS. 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 - Past Surgical History Past Surgical History: Yes Neuro Surgical History: No Pertinent History Cardiac: Cardiac Catheterization, Cardiac Stent Respiratory: No Pertinent History Gastrointestinal: Other Genitourinary: No Pertinent History Musculoskeletal: No Pertinent History Female Surgical History: Hysterectomy, Tubal Ligation Other Surgical History: colonoscopy, egd,ANSON x two,MARIVEL tubal, tumor removed from back of head - Social History Smoking Status: Former smoker How long have you smoked: 30 Exposure to second hand smoke: No Drug Use: none Patient Lives Alone: Yes - Nursing Vital Signs Nursing Vital Signs: Initial Vital Signs Temperature 98.0 F 11/12/20 11:38 Pulse Rate 98 H 11/12/20 11:38 Blood Pressure 141/95 11/12/20 11:38 O2 Sat by Pulse Oximetry 96 11/12/20 11:38 Pain Scale Pain Intensity 7 - Physical Exam General Appearance: no apparent distress, alert, anxiety Eyes, Ears, Nose, Throat Exam: normal ENT inspection, moist mucous membranes Neck Exam: normal inspection, non-tender, supple, full range of motion Cardiovascular/Respiratory Exam: chest non-tender, no respiratory distress Gastrointestinal/Abdominal Exam: non-tender Back Exam: normal inspection, normal range of motion, No CVA tenderness, No v ertebral tenderness Hips Exam: bilateral: non-tender, normal inspection, normal range of motion, no evidence of injury Legs Exam: bilateral leg: non-tender, normal inspection, normal range of motion, no evidence of injury Knees Exam: bilateral knee: non-tender, normal inspection, normal range of motion, no evidence of injury Ankle Exam: bilateral ankle: non-tender, normal inspection, normal range of motion, no evidence of injury Foot Exam: right foot: non-tender, normal inspection, normal range of motion, no evidence of injury, left foot: pain (Dorsal aspect left foot), soft tissue tenderness (Dorsal aspect left foot) Neuro/Tendon Exam: normal sensation, normal motor functions, normal tendon functions, responds to pain, no evidence tendon injury Mental Status Exam: alert, oriented x 3, cooperative Skin Exam: normal color, warm, dry SpO2 Interpretation: normal O2 Delivery: Room Air - Course Nursing assessment & vital signs reviewed: Yes Ordered Tests: Active Orders 24 hr Category Date Time Status FOOT (MINIMUM 3 VIEWS) Stat Exams 11/12/20 12:08 Completed - Progress Progress: unchanged Progress Note: 11/12/20 12:12 Medical decision making: This patient has an appointment to see a developer programmer on 12/01/2020. We contacted Dr. Tovar's office. We have now moved her appointment up to 11/15/2020. Patient has pain medication that is helping her and she can use this over the weekend. She is glad that we were able to move her appointment up but now only would like to have an x-ray of her left foot. 11/12/20 12:41 X-ray of the left foot shows new incomplete, transverse, proximal shaft second metatarsal fracture. Counseled pt/family regarding: diagnosis, need for follow-up, rad results - Departure Departure Disposition: Home Clinical Impression: Fracture of second metatarsal bone of left foot Condition: Stable Critical Care Time: No Referrals: PEDRO JOYNER [Primary Care Provider] - Additional Instructions: Minimize your weightbearing while wearing your walking shoe. Ice pack to area. Use your Tylenol with codeine medication for pain control. Follow-up at your scheduled podiatry appointment on 11/15/2020.
[2020-11-12 11:46] VITALS: BP 141/95; PULSE 98; O2SAT 96
--- NOTE | 2020-11-12 12:20 | XRAY ---
Indication: Second toe pain. No known injury. Comparison: May 23, 2017. 3 nonweightbearing views left foot demonstrates new incomplete transverse fracture proximal shaft 2nd metatarsal. Stable small heel spurs. No other bony, articular, or soft tissue abnormalities.
== END 2020-11-12 13:00 | disposition home or self-care (01) ==
LOC: ED 11:30
DX: S92.322A Displaced fracture of second metatarsal bone, left foot, initial encounter for closed fracture (principal); M79.672 Pain in left foot; Z79.899 Other long term (current) drug therapy; I25.10 Atherosclerotic heart disease of native coronary artery without angina pectoris; I10 Essential (primary) hypertension; I25.2 Old myocardial infarction; E03.9 Hypothyroidism, unspecified; K21.9 Gastro-esophageal reflux disease without esophagitis
CPT/HCPCS: 73630; 99283

== ENCOUNTER 2020-12-24 06:02 | Day surgery (SDC) | payer MEDICARE ==
[~2020-12-24 06:02] MED LIST: CEFAZOLIN 2 GM-D5W BAG** 2 GM/50 ML ML IV SCH; Lactated Ringers 1,000 ML IV SCH
[2020-12-24] MEDS ORDERED: BUPIVACAINE 0.5% VIAL IJ ONE (07:08)
[2020-12-24] MEDS ORDERED: Lactated Ringers 0 ML IV ONE (07:08)
[2020-12-24] MEDS ORDERED: XYLOCAINE 1% HCL 20 ML MDV ONE (07:08)
[2020-12-24] MEDS ORDERED: DIPRIVAN 200 MG/20 ML IV ONE ×5 (07:49→09:54)
[2020-12-24] MEDS ORDERED: SUBLIMAZE 100 MCG/2 ML ONE (07:49)
[2020-12-24] MEDS ORDERED: Xylocaine-Mpf 2% 5 Ml Vial ONE (07:49)
[2020-12-24] MEDS ORDERED: Versed 2 MG/2 ML Injection ONE (07:50)
[2020-12-24] MEDS ORDERED: Ketamine HCl 50 MG/ML ONE (09:52)
--- NOTE | 2020-12-24 10:19 | XRAY ---
Indication: 2nd-4th hammertoe surgery. Intraoperative fluoroscopy provided for 1 minute. 6 digital spot images submitted for interpretation demonstrate orthopedic K wires traversing entire 2nd-4th toes and MTP joints. Also two 2nd metatarsal head orthopedic screws. Correlate with intraoperative findings/report.
[2020-12-24 11:16] VITALS: O2SAT 96
[2020-12-24 11:47] VITALS: BP 150/87; PULSE 54
--- NOTE | 2020-12-24 14:06 | OP ---
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 2) Hammer toe 2, 3 and 4. 3) Rheumatoid arthritis. 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 2) Hammer toe 2, 3 and 4. 3) Rheumatoid arthritis. PROCEDURE: 1) Plantar plate repair of digits 2. 2) Capsulorrhaphy of digits 2 and 4. 3) Hammer toe corrections of 2, 3, 4. 4) Extensor tendon lengthening of digits 2 and 3. 5) Fausto osteotomy of second metatarsal. SURGEON: Guy Lehman DPM. VALIDATION LEADER: None. ANESTHESIA: Local plus MAC. HEMOSTASIS: Ankle tourniquet set to 250 mm of Mercury for 120 minutes. ESTIMATED BLOOD LOSS: Less than 20 cc. MATERIALS: [place] plantar plate repair system. 4-0 Monocryl, 3-0 Nylon and 2-0 Vicryl as well as two snap off screws and 0.365 K-wire. INJECTABLES: 25 cc of 1:1 mixture of 1% lidocaine plain and 0.5% bupivacaine plain injected in a digital block-type fashion to digits 2, 3 and 4 of the left foot. INDICATIONS FOR PROCEDURE: The patient initially saw me back in mid-November for a metatarsal fracture of the left foot that had subsequently healed. At this time she requested to proceed with correction of her hammer toes and cross deformity secondary to her rheumatoid arthritis. She understands all risks, benefits and complications of surgical intervention and wishes to proceed. The patient was informed that there is a possibility of recurrence of the deformity as well as degeneration of the metatarsal head as her rheumatoid continues. At this time she is willing to proceed and may give her temporary relief of the symptomatology and pain that she has been experiencing secondary to her deformity. DESCRIPTION OF PROCEDURE AND FINDINGS: The patient was brought into the OR and placed on the OR table in supine position after adequate assessment preoperatively. The patient's left lower extremity was prepped and draped in the typical sterile fashion. In this process a well-padded ankle tourniquet was applied to the left ankle and the tourniquet was set to 250 mm of Mercury. At this time attention was directed to the left lower extremity. A preoperative block consisting of 25 cc of 1:1 mixture of 1% lidocaine plain and 0.5% bupivacaine plain was performed to digits 2, 3 and 4 of the left foot. Following this Esmarch is utilized to exsanguinate the left foot and the tourniquet was elevated to 250 mm of Mercury. At this time attention was directed to the dorsal aspect of the left second digit where a curvilinear incision was made with a 15 blade at the dorsal aspect of the joint encountering the extensor tendon this Z-tenotomy was performed reflecting the two ends of the tendons with respective edge and clamped with a mini-curved hemostat. At this time the joint was identified and careful not to violate any of the cartilage, the joint was resected with a medial and lateral J-stroke. On inspection of the joint it appeared that there was attenuation of the lateral capsule and tightening of the medial capsule. At this time dissection was completed in the medial and lateral aspects and a McGlamry was utilized to elevate the plantar plate off the plantar aspect of the metatarsal head. Following this a Fausto osteotomy was performed with the sagittal saw perpendicular to the longitudinal axis of the weight bearing surface of the second metatarsal. The metatarsal head was then pushed back approximately 3 mm and pinned utilizing the K-wire. The overhang and the remaining cartilage were then debrided to a flush, healthy surface so as not to create any impingement. At this time visualization of the plantar plate was made significantly easier. A 1.2 K-wire was inserted into the metatarsal and the base of the proximal phalanx and distraction was achieved. The lateral aspect of the plantar plate had been destroyed and was no longer present. However the medial aspect of the plantar plate was still intact, this was freed from its soft tissue constricture and a gravity Scorpion suture was introduced into the plantar plate at its proximal extent from dorsal to plantar orientation, this was retrieved utilizing medial glide. The same process was carried out medially and laterally and the sutures were baggage tagged, secured into the plantar plate. The two sutures were then held out of the surgical field while drill holes were made through the dorsal aspect of the base of the proximal phalanx in order to plan for the retrieval of the sutures and repair of the plantar plate. This was achieved using the lasso and pulling the sutures from plantar to dorsal. At this time the sutures were then tied at the dorsal aspect of the metatarsophalangeal joint. At this time there was still some residual medial deviation so a capsulorrhaphy was performed at the lateral aspect of the second metatarsophalangeal joint which took approximately 2 mm bilateral capsule away which was then linked back together utilizing 2-0 Monocryl. At this time the second digit was inspected for any residual contracture where there was some residual contracture at the proximal interphalangeal joint. At this time a capsulotomy was performed at the proximal interphalangeal joint performing a J-stroke on both the medial and lateral aspect of the joint exposing the metatarsal head. The extensor tendon was then reflected from the dorsal aspect of this joint and the joint was resected utilizing the same sagittal saw. The two bone ends were then re-approximated utilizing a 0.62 K-wire and the K-wire was driven back into the metatarsal so as to secure both the proximal interphalangeal joint arthrodesis as well as the Fausto osteotomy. At this time attention was directed to the dorsal aspect of the third metatarsophalangeal joint where there appeared to be some residual medial deviation of the toe. At this time dissection was taken down to the level of the joint once more and a lateral capsulorrhaphy was performed at this level as well. No Fausto osteotomy took place for the third metatarsal. Following this attention was directed again to the proximal interphalangeal joint where the joint was resected out. The head of the proximal phalanx was then resected utilizing a sagittal saw and was prepped in a typical hammer toe arthrodesis-type fashion. Attention then was directed to the third digit where the other deviation was at the proximal interphalangeal joint due to tendon contraction. At this point the joint was resected out and correction of the medial deviation of the proximal interphalangeal joint was made with the saw cut rather than correction of the soft tissue. This was then pinned with a 0.62 K-wire. All K-wires were checked for their position noting adequate position of the proximal interphalangeal arthrodesis sites as well as the Fausto osteotomy and into metatarsal head. Once the position was determined to be adequate for soft tissue correction this was checked with a loading of the forefoot under fluoroscopy. The pins were revised in order to prevent contractures in a dorsal or plantar fashion. At this time the extensor tendons were then repaired utilizing 2-0 Monocryl, 2-0 Vicryl. The subcutaneous tissue was then repaired utilizing 3-0 Monocryl and a 3-0 Nylon was utilized to coapt the skin in a simple interrupted-type fashion. The tourniquet was let down after time at 120 minutes. The patient had full return of vascular status and capillary refill time was adequate. Following this cleansing the foot with lap sponge and dried. Incision sites were dressed with Betadine, Adaptic, 4x4, Kerlix and HETAL applied lightly. The patient was also dispensed a forefoot offloading shoe. Following this the patient was reversed from anesthesia and taken to the postoperative anesthesia care unit with vital signs stable and vascular status intact. The patient handled the anesthesia as well as the procedure without complication. Postoperative orders as indicated in the patient's chart preoperatively. The patient to follow up in one weeks' time.
--- NOTE | 2020-12-27 09:34 | XRAY ---
1 minute fluoroscopy time in surgery for hammertoe corrections of the left foot.
== END 2020-12-24 11:55 | disposition home or self-care (01) ==
LOC: SDC 06:02 → EDSTATUS 06:03 → SDC 11:55
PROVIDERS: ATTEND Podiatrist Foot & Ankle Surgery
DX: M20.42 Other hammer toe(s) (acquired), left foot (principal); M20.5X2 Other deformities of toe(s) (acquired), left foot; M06.9 Rheumatoid arthritis, unspecified; M79.672 Pain in left foot; I10 Essential (primary) hypertension; Z86.79 Personal history of other diseases of the circulatory system; Z79.899 Other long term (current) drug therapy
CPT/HCPCS: 28285; 28308; 73620; 76000; J0690; J2250; J2704; J3010

== ENCOUNTER 2021-04-19 18:21 | Emergency (ER) | payer MEDICARE ==
[2021-04-19] MEDS ORDERED: Sodium Chloride 0.9% 500 ML 500 ML IV ONE ×2 (19:01→19:47)
--- NOTE | 2021-04-19 19:06 | ERPHSYRPT ---
- History of Present Illness Time Seen by Provider: 04/19/21 18:27 Source: patient Exam Limitations: no limitations Patient Subjective Stated Complaint: PT states "I tested positive for covid on sunday and I got the infusion this morning and they said to go home and take tylenol but I fell asleep and when I woke up my temperature was 104. I took 3 extra strength tylenol and I think my temp is coming down." Triage Nursing Assessment: Pt presented alert and oriented X 3, skin pink, hot to touch, dry. PT able to speak in clear full sentences. pt gets short of breath easily. Pt sligtly tachypneic. Physician History: 61 years old female with history of lupus, hypertension presented in the ER with chief complaint of worsening fever. Patient has been having fever for the last 4 days with cough initially which is improving he was tested positive for COVID- 19 3 days ago. Patient was supposed to get her infusion but high fever and was sent home to get Tylenol but patient went to sleep after taking it and woke up with a fever of 104. He is having headache, generalized body ache, fatigue tiredness no energy. Denies any chest pain or shortness of breath. No vomiting or diarrhea reported. She took 3 Tylenol prior to arrival total of 1500 mg. Family reports she was talking out of her head when her fever was 104 at home. Timing/Duration: day(s) (4), constant, gradual onset, worse Cough Quality/Degree: mild, dry cough Possible Cause: no prior episodes Associated Symptoms: fever, chills, cough, headache, lightheadedness, muscle aches, nasal congestion, sore throat, No chest pain/soreness Allergies/Adverse Reactions: No Known Drug Allergies Allergy (Verified 12/24/20 06:10) Home Medications: Albuterol/Ipratropium Mdi [Combivent Inhaler] 15 gm IH QID 04/24/13 [History] Aspirin EC 81 mg [Ecotrin 81 mg] 81 mg PO DAILY 04/24/13 [History] Lorazepam 1 mg [Ativan 1 MG] 1 mg PO HS PRN 04/24/13 [History] Ergocalciferol (Vitamin D2) [Vitamin D] 50,000 unit PO WEEKLY 05/23/17 [History] Metoprolol Succinate 50 mg [Toprol Xl 50 MG] 25 mg PO BID 05/23/17 [History] Prednisone 5 mg [Deltasone 5 mg] 12.5 mg PO DAILY 05/23/17 [History] Hydroxychloroquine Sulfate [Plaquenil] 200 mg PO BID 06/03/18 [History] Simvastatin 1 ea PO DAILY 09/13/20 [History] Hydrocodone/Acetaminophen [Hydrocodone-Acetamin 5-325 mg] 1 tab PO Q6HPRN PRN 12/21/20 [History] Levothyroxine Sodium [Euthyrox] 175 mcg PO DAILY 12/21/20 [History] Omeprazole 40 mg PO TIDWM 12/21/20 [History] Hx Tetanus, Diphtheria Vaccination/Date Given: No Hx Influenza Vaccination/Date Given: Yes Hx Pneumococcal Vaccination/Date Given: No Immunizations Up to Date: Yes Travel Risk - International Travel Have you traveled outside of the country in past 3 weeks: No - Coronavirus Screening Are you exhibiting any of the following symptoms?: No Close contact with a COVID-19 positive Pt in past 14-21 Days: No - Vaccine Status Have you recieved a Covid-19 vaccination: Yes Chief Client Officer: Moderna - Vaccination Dates Date of 2cond Vaccination (if applicable): 12/01/2020 - Review of Systems Constitutional: Fever, Chills, Fatigue, Weakness Eyes: No Symptoms Ears, Nose, & Throat: Nose Congestion, Throat Pain Respiratory: Cough Cardiac: No Symptoms Abdominal/Gastrointestinal: No Symptoms Genitourinary Symptoms: No Symptoms Musculoskeletal: Myalgias Skin: No Symptoms Neurological: Dizziness, Headache Psychological: No Symptoms Endocrine: No Symptoms Hematologic/Lymphatic: No Symptoms Immunological/Allergic: No Symptoms - Past Medical History Pertinent Past Medical History: Yes Neurological History: No Pertinent History ENT History: No Pertinent History Cardiac History: Coronary Artery Disease, High Cholesterol, Hypertension, Myocardial Infarction (DC) Respiratory History: No Pertinent History Endocrine Medical History: Hypothyroidism, Other Musculoskeletal History: Fibromyalgia, Rheumatoid Arthritis, Other GI Medical History: GERD, Gallbladder Disease History: Renal Disease Psycho-Social History: Anxiety, Depression Female Reproductive Disorders: Other Other Medical History: PATIENT HAD DC 2010 AND HAD ONE STENT PLACED. AT THAT TIME FOUND OUT SHE ONE KIDNEY HAD DETERIORATED AND OTHER KIDNEY FUNCTIONING AT LESS THAN 50%. ALSO HAS SYSTEMIC LUPUS. 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 - Past Surgical History Past Surgical History: Yes Neuro Surgical History: No Pertinent History Cardiac: Cardiac Catheterization, Cardiac Stent Respiratory: No Pertinent History Gastrointestinal: Other Genitourinary: No Pertinent History Musculoskeletal: Other Female Surgical History: Hysterectomy, Tubal Ligation Other Surgical History: colonoscopy, egd,ANSON x two,MARIVEL tubal, tumor removed from back of head. tendon removed from right hand. - Social History Smoking Status: Former smoker How long have you smoked: 30 Exposure to second hand smoke: No Drug Use: none Patient Lives Alone: Yes - Female History Hx Now: No - Nursing Vital Signs Nursing Vital Signs: Initial Vital Signs Temperature 101.2 F 04/19/21 18:36 Pulse Rate 125 H 04/19/21 18:36 Respiratory Rate 24 04/19/21 18:36 Blood Pressure 134/79 04/19/21 18:36 O2 Sat by Pulse Oximetry 96 04/19/21 18:36 Pain Scale Pain Intensity 0 - Physical Exam General Appearance: no apparent distress, alert Eye Exam: PERRL/EOMI, eyes nml inspection Ears, Nose, Throat Exam: TMs normal, pharyngeal erythema Neck Exam: normal inspection, non-tender, full range of motion Respiratory Exam: normal breath sounds, lungs clear Cardiovascular Exam: normal heart sounds, tachycardia Back Exam: normal inspection, normal range of motion Neurologic Exam: alert, oriented x 3, cooperative, traffic analyst II-XII nml as tested, normal mood/affect, nml station & gait, sensation nml Skin Exam: normal color SpO2 Interpretation: normal SpO2: 96 O2 Delivery: Room Air Ordered Tests: Active Orders 24 hr Category Date Time Status CHEST 1 VIEW (PORTABLE) Stat Exams 04/19/21 19:01 Taken BLOOD CULTURE Stat Lab 04/19/21 19:40 Received CBC W DIFF Stat Lab 04/19/21 19:00 Completed CMP Stat Lab 04/19/21 19:00 Completed Lactic Acid Stat Lab 04/19/21 19:25 Completed UA W/RFX UR CULTURE Stat Lab 04/19/21 20:23 Ordered Medication Summary Discontinued Medications Generic Name Dose Route Start Last Admin Trade Name Freq PRN Reason Stop Dose Admin Sodium Chloride 500 mls @ 500 mls/hr 04/19/21 19:01 04/19/21 19:49 Sodium Chloride 0.9% 500 Ml IV 04/19/21 20:00 500 mls/hr .Q1H ONE Administration Sodium Chloride Confirm 04/19/21 19:47 Sodium Chloride 0.9% 500 Ml Administered 04/19/21 19:48 Dose 500 mls @ ud IV .STK-MED ONE Lab/Rad Data: Laboratory Result Diagrams 04/19/21 19:00 04/19/21 19:00 Laboratory Results 04/19/21 04/19/21 04/19/21 Range/Units 19:25 19:00 19:00 WBC 8.2 (4.0-10.5) K/mm3 RBC 4.54 (4.1-5.4) M/mm3 Hgb 12.9 (12.0-16.0) gm/dl Hct 41.4 (35-47) % MCV 91.2 (78-100) fl MCH 28.4 (26-32) pg MCHC 31.2 L (32-36) g/dl RDW 16.2 H (11.5-14.0) % Plt Count 173 (150-450) K/mm3 MPV 11.9 H (7.5-11.0) fl Gran % 82.6 H (36.0-66.0) % Eos # (Auto) 0 (0-0.5) Absolute Lymphs (auto) 1.10 (1.0-4.6) Absolute Monos (auto) 0.33 (0.0-1.3) Lymphocytes % 13.4 L (24.0-44.0) % Monocytes % 4.0 (0.0-12.0) % Eosinophils % 0.0 (0.00-5.0) % Basophils % 0.0 (0.0-0.4) % Absolute Granulocytes 6.79 (1.4-6.9) Basophils # 0 (0-0.4) Sodium 138 (137-145) mmol/L Potassium 3.8 (3.5-5.1) mmol/L Chloride 106 (98-107) mmol/L Carbon Dioxide 20 L (22-30) mmol/L Anion Gap 16.5 H (5-15) MEQ/L BUN 21 H (7-17) mg/dL Creatinine 0.93 (0.52-1.04) mg/dL Estimated GFR > 60.0 ML/MIN Glucose 104 (74-106) mg/dL Lactic Acid 2.8 H (0.4-2.0) Calcium 8.4 (8.4-10.2) mg/dL Total Bilirubin 0.60 (0.2-1.3) mg/dL AST 36 (14-36) U/L ALT 16 (0-35) U/L Alkaline Phosphatase 36 L (38-126) U/L Serum Total Protein 6.8 (6.3-8.2) g/dL Albumin 3.9 (3.5-5.0) g/dL - Progress Progress: improved Air Movement: good Progress Note: 04/19/21 20:53 Given small fluid bolus, fever improved. Patient is feeling better. Maintaining oxygen saturation around 96% on room air. No signs of distress.. Offered observation admission but she wants to go home. She is positive for Covid, given a dose of Zithromax and Decadron in here and will continue to go h ome. Patient is advised to go to infusion clinic as per Dr. Joyner recommendations. Discussed signs symptoms of worsening needing return to ER which he seems understanding. Stable for discharge. Antibiotics given: Yes Counseled pt/family regarding: lab results, diagnosis, need for follow-up, rad results - Departure Departure Disposition: Home Clinical Impression: Viral syndrome, COVID-19 Condition: Stable Critical Care Time: No Referrals: PEDRO JOYNER [Primary Care Provider] - Follow Up with PCP/3 days Instructions: Fever, Adult (DC) Additional Instructions: Follow-up with infusion clinic as per Dr. Chou recommendations tomorrow. Take Tylenol as needed for fever greater than 100.4. Use inhaler which you have at home. Follow-up with primary care for reevaluation. Return to ER for worsening cough/persistent high-grade fever or if having difficulty breathing. Prescriptions: Azithromycin 250 mg PO DAILY 4 Days #4 tablet Dexamethasone [Decadron] 6 mg PO DAILY 5 Days #5 tablet
[2021-04-19 19:16] LABS: Absolute Neutrophil Ct (ANC) 6.79 (1.4-6.9); Basophil (Absolute #) 0 (0-0.4); Eosinophil (Absolute #) 0 (0-0.5); Hematocrit 41.4 % (35-47); Hemoglobin 12.9 gm/dl (12.0-16.0); Lymphocytes % 13.4 % (24.0-44.0); Mean Cell Volume 91.2 fl (78-100); Mean Corpuscular Hemoglobin 28.4 pg (26-32); Mean Corpuscular Hgb Concent. 31.2 g/dl (32-36); Mean Platelet Volume 11.9 fl (7.5-11.0); Monocyte (Absolute #) 0.33 (0.0-1.3); Neutrophil % 82.6 % (36.0-66.0); Platelet Count 173 K/mm3 (150-450); Red Blood Count 4.54 M/mm3 (4.1-5.4); Red Cell Distribution Width 16.2 % (11.5-14.0); White Blood Count 8.2 K/mm3 (4.0-10.5)
[2021-04-19 19:29] LABS: ALBUMIN 3.9 g/dL (3.5-5.0); ALKALINE PHOSPHATASE 36 U/L (38-126); ANION GAP 16.5 MEQ/L (5-15); BLOOD UREA NITROGEN 21 mg/dL (7-17); CHLORIDE 106 mmol/L (98-107); Calcium 8.4 mg/dL (8.4-10.2); Carbon Dioxide 20 mmol/L (22-30); Creatinine 1 0.93 mg/dL (0.52-1.04); EST GLOMERULAR FILTRATION RATE > 60.0 ML/MIN; Glucose 104 mg/dL (74-106); Potassium 3.8 mmol/L (3.5-5.1); SGOT/AST 36 U/L (14-36); SGPT/ALT 16 U/L (0-35); SODIUM 138 mmol/L (137-145); Total Protein 6.8 g/dL (6.3-8.2)
[2021-04-19] MEDS ORDERED: Zithromax 250 MG TABLET PO ONE (20:52)
[2021-04-19] MEDS ORDERED: DECADRON 10MG INJ. PO ONE (20:52)
[2021-04-19] MEDS ORDERED: Zithromax 250 MG TABLET ONE (21:23)
[2021-04-19] MEDS ORDERED: DECADRON 10MG INJ. ONE (21:23)
[2021-04-19 21:39] VITALS: BP 115/68; PULSE 93; O2SAT 95
[2021-04-19 21:50] LABS: Appearance SLIGHTLY CLOUDY (CLEAR); Bacteria MANY /HPF (NEGATIVE); Bilirubin NEGATIVE (NEGATIVE); Blood NEGATIVE Ery/ul (0-5); Epithelial Cells RARE /HPF (FEW); Glucose NEGATIVE (NEGATIVE); Hyaline Casts 0-2 /LPF (0-2); Ketones NEGATIVE (NEGATIVE); Leukocyte Esterase NEGATIVE (NEGATIVE); Mucus MODERATE /HPF (NEGATIVE); Nitrite POSITIVE (NEGATIVE); Protein,Urine Dip 30 (Negative); Specific Gravity 1.023 (1.005-1.025); Urobilinogen NEGATIVE mg/dL (0-1)
--- NOTE | 2021-04-20 08:57 | XRAY ---
Indication: Positive Covid 19. Comparison: January 16, 2020. Portable chest demonstrates new subtle hazy interstitial alveolar opacities bilaterally without consolidation/large effusion. Remaining heart and lungs are unremarkable again with incidental hiatal hernia, osteopenia, and bony degenerative changes.
== END 2021-04-19 21:39 | disposition home or self-care (01) ==
LOC: ED 18:21
DX: B34.9 Viral infection, unspecified (principal); U07.1 COVID-19; Z79.899 Other long term (current) drug therapy
CPT/HCPCS: 36415; 71045; 80053; 81001; 83605; 85025; 87040; 87077; 87086; 87186; 99284; J1100; A9270-GY

== ENCOUNTER 2021-04-27 16:18 | Observation (INO) | payer MEDICARE ==
[2021-04-27] MEDS ORDERED: Sodium Chloride 0.9% 1000 ML 1,000 ML IV STA (19:36)
[2021-04-27] MEDS ORDERED: TYLENOL 325 MG PO STA (19:36)
[2021-04-27 19:46] LABS: Hematocrit 48.6 % (35-47); Hemoglobin 15.1 gm/dl (12.0-16.0); Mean Corpuscular Hgb Concent. 31.1 g/dl (32-36); Mean Platelet Volume 11.4 fl (7.5-11.0); Platelet Count 253 K/mm3 (150-450); Red Cell Distribution Width 16.3 % (11.5-14.0); White Blood Count 9.8 K/mm3 (4.0-10.5)
[2021-04-27 19:54] LABS: BILIRUBIN,TOTAL 1.9 mg/dL (0.2-1.3); Calcium 8.9 mg/dL (8.4-10.2); Creatinine 1 1.08 mg/dL (0.52-1.04); EST GLOMERULAR FILTRATION RATE 54.6 ML/MIN; Potassium 3.6 mmol/L (3.5-5.1); Total Protein 7.1 g/dL (6.3-8.2)
[2021-04-27] MEDS ORDERED: Sodium Chloride 0.9% 1000 ML 1,000 ML ONE (19:55)
[2021-04-27] MEDS ORDERED: TYLENOL 325 MG ONE (19:55)
[2021-04-27] MEDS ORDERED: DECADRON 10MG INJ. IV ONE (20:40)
--- NOTE | 2021-04-27 20:45 | ERPHSYRPT ---
- History of Present Illness Time Seen by Provider: 04/27/21 16:45 Source: patient Exam Limitations: no limitations Patient Subjective Stated Complaint: " I had Covid, then they told me I had a pneumonia. I finished my steriods and antibiotics but still feel bad and I'm sh ort of breath. I've never felt so sick in my life". Triage Nursing Assessment: Pt presents to ER with complaints of shortness of breath, cough, and generalized weakness. Recently out of her Covid quarentine, she was diagnosed with Pneumonia and treated with Rx abx and steriods. Pt is alert and oriented x 3. Appears weak and short of breath. Lung sounds present course crackles throughout. Pt is only able to ambulate short distances. Complains of diarrhea with blood in stool. Pt denies nausea and vomiting. States has had decreased appetite. Pt skin is flushed, warm, and dry. Physician History: Patient is a 61-year-old female presents to our ED with complaints of progressive shortness of breath. Patient was diagnosed with Covid 2 weeks ago. Patient was in quarantine. She was treated with steroids and antibiotics. Patient completed her course of antibiotics and steroid. However patient states that her symptoms are progressive. Patient oral intake has decreased. She has been experiencing mild diarrhea which she believes may be tinged with blood. No abdominal pain. No trauma. No fever. Symptoms are moderate in intensity. No specific worsening improving factors. Patient voices no other complaints or concerns at this time. Timing/Duration: week(s) (2 weeks) Severity: moderate Modifying Factors: Improves With: nothing Associated Symptoms: shortness of breath, cough, weakness, No syncope Allergies/Adverse Reactions: No Known Drug Allergies Allergy (Verified 04/27/21 16:29) Home Medications: Albuterol/Ipratropium Mdi [Combivent Inhaler] 15 gm IH QID 04/24/13 [History] Aspirin EC 81 mg [Ecotrin 81 mg] 81 mg PO DAILY 04/24/13 [History] Lorazepam 1 mg [Ativan 1 MG] 1 mg PO HS PRN 04/24/13 [History] Ergocalciferol (Vitamin D2) [Vitamin D] 50,000 unit PO WEEKLY 05/23/17 [History] Metoprolol Succinate 50 mg [Toprol Xl 50 MG] 25 mg PO BID 05/23/17 [History] Hydroxychloroquine Sulfate [Plaquenil] 200 mg PO BID 06/03/18 [History] Simvastatin 1 ea PO DAILY 09/13/20 [History] Hydrocodone/Acetaminophen [Hydrocodone-Acetamin 5-325 mg] 1 tab PO Q6HPRN PRN 12/21/20 [History] Levothyroxine Sodium [Euthyrox] 175 mcg PO DAILY 12/21/20 [History] Omeprazole 40 mg PO TIDWM 12/21/20 [History] Hx Tetanus, Diphtheria Vaccination/Date Given: Yes Hx Influenza Vaccination/Date Given: Yes Hx Pneumococcal Vaccination/Date Given: No Immunizations Up to Date: Yes Travel Risk - International Travel Have you traveled outside of the country in past 3 weeks: No - Coronavirus Screening Are you exhibiting any of the following symptoms?: Yes Symptoms: Cough: New Onset, Shortness of Breath, Headaches/Body Aches/Fatigue - Vaccine Status Have you recieved a Covid-19 vaccination: Yes 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[employer]: [employer] - Vaccination Dates Date of 2cond Vaccination (if applicable): November 2020 - Review of Systems Constitutional: No Symptoms, No Fever, No Chills Eyes: No Symptoms Ears, Nose, & Throat: No Symptoms Respiratory: No Symptoms, No Cough, No Dyspnea Cardiac: No Symptoms, No Chest Pain, No Edema, No Syncope Abdominal/Gastrointestinal: No Symptoms, No Abdominal Pain, No Nausea, No Vomiting, No Diarrhea Genitourinary Symptoms: No Symptoms, No Dysuria Musculoskeletal: No Symptoms, No Back Pain, No Neck Pain Skin: No Symptoms, No Rash Neurological: No Symptoms, No Dizziness, No Focal Weakness, No Sensory Changes Psychological: No Symptoms Endocrine: No Symptoms Hematologic/Lymphatic: No Symptoms Immunological/Allergic: No Symptoms All Other Systems: Reviewed and Negative - Past Medical History Pertinent Past Medical History: Yes Neurological History: No Pertinent History ENT History: No Pertinent History Cardiac History: Coronary Artery Disease, High Cholesterol, Hypertension, Myocardial Infarction (PR) Respiratory History: No Pertinent History Endocrine Medical History: Hypothyroidism, Other Musculoskeletal History: Fibromyalgia, Rheumatoid Arthritis, Other GI Medical History: GERD, Gallbladder Disease History: Renal Disease Psycho-Social History: Anxiety, Depression Female Reproductive Disorders: Other Other Medical History: PATIENT HAD PR 2010 AND HAD ONE STENT PLACED. AT THAT TIME FOUND OUT SHE ONE KIDNEY HAD DETERIORATED AND OTHER KIDNEY FUNCTIONING AT LESS THAN 50%. ALSO HAS SYSTEMIC LUPUS. 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 Hx of lupus - Past Surgical History Past Surgical History: Yes Neuro Surgical History: No Pertinent History Cardiac: Cardiac Catheterization, Cardiac Stent Respiratory: No Pertinent History Gastrointestinal: Other Genitourinary: No Pertinent History Musculoskeletal: Other Female Surgical History: Hysterectomy, Tubal Ligation Other Surgical History: colonoscopy, egd,ANSON x two,MARIVEL tubal, tumor removed from back of head. tendon removed from right hand. - Social History Smoking Status: Never smoker How long have you smoked: 30 Exposure to second hand smoke: No Drug Use: none Patient Lives Alone: Yes - Female History Hx Now: No - Nursing Vital Signs Nursing Vital Signs: Initial Vital Signs Temperature 96.5 F 04/27/21 16:22 Pulse Rate 112 H 04/27/21 16:22 Respiratory Rate 24 04/27/21 16:22 Blood Pressure 107/84 04/27/21 16:22 O2 Sat by Pulse Oximetry 88 L 04/27/21 16:22 Pain Scale Pain Intensity 0 - Physical Exam General Appearance: no apparent distress, alert Eye Exam: PERRL/EOMI, eyes nml inspection Ears, Nose, Throat Exam: normal ENT inspection, TMs normal, pharynx normal, moist mucous membranes Neck Exam: normal inspection, non-tender, supple, full range of motion Respiratory Exam: normal breath sounds, lungs clear, diminished breath sounds, rhonchi, other (Patient is hypoxic. She does not normally require oxygen. Patient is 95% on 2 L at rest), No respiratory distress Cardiovascular Exam: regular rate/rhythm, normal heart sounds, normal peripheral pulses Gastrointestinal/Abdomen Exam: soft, normal bowel sounds, No tenderness, No mass Back Exam: normal inspection, normal range of motion, No CVA tenderness, No vertebral tenderness Extremity Exam: normal inspection, normal range of motion, pelvis stable Neurologic Exam: alert, oriented x 3, cooperative, normal mood/affect, nml cerebellar function, nml station & gait, sensation nml, No motor deficits Skin Exam: normal color, warm, dry, No rash Lymphatic Exam: No adenopathy SpO2 Interpretation: normal SpO2: 95 O2 Delivery: Nasal Cannula - Course Nursing assessment & vital signs reviewed: Yes EKG Interpreted by Me: RATE ([id number]), Sinus Tach, NORMAL AXIS, NORMAL INTERVALS, Non-specific ST Changes (T wave inversions lateral leads. Sinus tachycardia.) - Radiology Exams Chest X-ray Interpretation: Interpreted by me (Multifocal infiltrates consistent with COVID-19 pneumonia) Ordered Tests: Active Orders 24 hr Category Date Time Status EKG-ER Only STAT Care 04/27/21 19:36 Active IV Insertion STAT Care 04/27/21 19:36 Active Pulse Oximetry (ED) STAT Care 04/27/21 19:36 Active CHEST 1 VIEW (PORTABLE) Stat Exams 04/27/21 19:37 Taken BLOOD CULTURE Stat Lab 04/27/21 19:36 Ordered CBC W DIFF Stat Lab 04/27/21 19:36 Completed CMP Stat Lab 04/27/21 19:36 Completed INFLUENZA A+B JULIUS Stat Lab 04/27/21 20:30 Completed Lactic Acid Stat Lab 04/27/21 19:36 Completed Lactic Acid Stat Lab 04/27/21 21:45 Received Manual Differential NC Stat Lab 04/27/21 19:36 Completed UA W/RFX UR CULTURE Stat Lab 04/27/21 19:36 Ordered Transfer Order Routine Transfer 04/27/21 Ordered Medication Summary Generic Name Dose Route Start Last Admin Trade Name Freq PRN Reason Stop Dose Admin Remdesivir 200 mg/ Sodium 250 mls @ 125 mls/hr 04/27/21 22:24 Chloride IV 04/28/21 00:23 ONCE ONE Discontinued Medications Generic Name Dose Route Start Last Admin Trade Name Freq PRN Reason Stop Dose Admin Acetaminophen 650 mg 04/27/21 19:36 04/27/21 20:01 Tylenol 325 Mg PO 04/27/21 19:37 650 mg STAT STA Administration Acetaminophen Confirm 04/27/21 19:55 Tylenol 325 Mg Administered 04/27/21 19:56 Dose 650 mg .ROUTE .STK-MED ONE Baricitinib 2 mg 04/27/21 22:59 Olumiant PO 04/27/21 23:00 ONCE STA Dexamethasone Sodium Phosphate 6 mg 04/27/21 20:40 Decadron 10mg Inj. IV 04/27/21 20:41 STAT ONE Sodium Chloride 1,000 mls @ 999 mls/hr 04/27/21 19:36 09/08/21 20:01 Sodium Chloride 0.9% 1000 Ml IV 04/27/21 20:36 999 mls/hr .Q1H1M STA Administration Sodium Chloride Confirm 04/27/21 19:55 Sodium Chloride 0.9% 1000 Ml Administered 04/27/21 19:56 Dose 1,000 mls @ ud .ROUTE .K-MED ONE Lab/Rad Data: Laboratory Result Diagrams 04/27/21 19:36 04/27/21 19:36 Laboratory Results 04/27/21 04/27/21 04/27/21 Range/Units 20:30 20:30 19:36 WBC (4.0-10.5) K/mm3 RBC (4.1-5.4) M/mm3 Hgb (12.0-16.0) gm/dl Hct (35-47) % MCV (78-100) fl MCH (26-32) pg MCHC (32-36) g/dl RDW (11.5-14.0) % Plt Count (150-450) K/mm3 MPV (7.5-11.0) fl Segmented Neutrophils (36.0-66.0) % Band Neutrophils (0.0-2.0) % Lymphocytes (Manual) (24-44) % Monocytes (Manual) (0.0-12.0) % Eosinophils (Manual) (0.00-3.0) % Platelet Estimate (NORMAL) RBC Morphology Polychromasia Sodium 139 (137-145) mmol/L Potassium 3.6 (3.5-5.1) mmol/L Chloride 103 (98-107) mmol/L Carbon Dioxide 25 (22-30) mmol/L Anion Gap 16.0 H (5-15) MEQ/L BUN 23 H (7-17) mg/dL Creatinine 1.08 H (0.52-1.04) mg/dL Estimated GFR 54.6 ML/MIN Glucose 74 (74-106) mg/dL Lactic Acid (0.4-2.0) Calcium 8.9 (8.4-10.2) mg/dL Total Bilirubin 1.90 H (0.2-1.3) mg/dL AST 22 (14-36) U/L ALT 14 (0-35) U/L Alkaline Phosphatase 48 (38-126) U/L Serum Total Protein 7.1 (6.3-8.2) g/dL Albumin 4.0 (3.5-5.0) g/dL Influenza Type A Ag NEGATIVE (NEGATIVE) Influenza Type B Ag NEGATIVE (NEGATIVE) SARS-CoV-2 (PCR) POSITIVE A (NEGATIVE) 04/27/21 04/27/21 Range/Units 19:36 19:36 WBC 9.8 (4.0-10.5) K/mm3 RBC 5.40 (4.1-5.4) M/mm3 Hgb 15.1 (12.0-16.0) gm/dl Hct 48.6 H (35-47) % MCV 90.0 (78-100) fl MCH 28.0 (26-32) pg MCHC 31.1 L (32-36) g/dl RDW 16.3 H (11.5-14.0) % Plt Count 253 (150-450) K/mm3 MPV 11.4 H (7.5-11.0) fl Segmented Neutrophils 81 H (36.0-66.0) % Band Neutrophils 1 (0.0-2.0) % Lymphocytes (Manual) 11 L (24-44) % Monocytes (Manual) 6 (0.0-12.0) % Eosinophils (Manual) 1 (0.00-3.0) % Platelet Estimate NORMAL (NORMAL) RBC Morphology ABNORMAL Polychromasia 1+ Sodium (137-145) mmol/L Potassium (3.5-5.1) mmol/L Chloride (98-107) mmol/L Carbon Dioxide (22-30) mmol/L Anion Gap (5-15) MEQ/L BUN (7-17) mg/dL Creatinine (0.52-1.04) mg/dL Estimated GFR ML/MIN Glucose (74-106) mg/dL Lactic Acid 2.6 H (0.4-2.0) Calcium (8.4-10.2) mg/dL Total Bilirubin (0.2-1.3) mg/dL AST (14-36) U/L ALT (0-35) U/L Alkaline Phosphatase (38-126) U/L Serum Total Protein (6.3-8.2) g/dL Albumin (3.5-5.0) g/dL Influenza Type A Ag (NEGATIVE) Influenza Type B Ag (NEGATIVE) SARS-CoV-2 (PCR) (NEGATIVE) - Progress Progress: improved Progress Note: Patient reassessed. She feels better. Case discussed with Dr. Murray who accepts admission to observation. Patient is Covid positive. Dr. Murray advised a dose of Decadron which was already administered. He advised remdesivir as Olumiant. 04/27/21 23:01 Will see patient in: hospital (observation) Counseled pt/family regarding: lab results, diagnosis, rad results - Departure Clinical Impression: Pneumonia due to COVID-19 virus, Hypoxia Condition: Stable Critical Care Time: No Referrals: PEDRO JOYNER [Primary Care Provider] -
[2021-04-27 21:18] LABS: INFLUENZA A NEGATIVE (NEGATIVE); INFLUENZA B NEGATIVE (NEGATIVE)
[2021-04-27 21:41] LABS: BAND 1 % (0.0-2.0); Eosinophil 1 % (0.00-3.0); Lymphocytes 11 % (24-44); Monocyte 6 % (0.0-12.0); Neutrophils 81 % (36.0-66.0); Polychromasia 1+; Total Cells Counted 100
[2021-04-27 21:42] LABS: Platelet Estimate NORMAL (NORMAL)
[2021-04-27] MEDS ORDERED: REMDESIVIR 200 MG in Sodium Chloride 0.9% 250 ML 250 ML IV ONE (22:24)
[2021-04-27] MEDS ORDERED: OLUMIANT PO STA (22:59)
[2021-04-28] MEDS ORDERED: DECADRON 10MG INJ. ONE (00:22)
[2021-04-28] MEDS ORDERED: Sodium Chloride 0.9% 1000 ML 1,000 ML IV SCH (00:55)
[2021-04-28] MEDS ORDERED: VENTOLIN COMMON CANISTER IH PRN (00:55)
[2021-04-28] MEDS ORDERED: MORPHINE SULFATE 4 MG INJ IV PRN (00:55)
[2021-04-28] MEDS ORDERED: TYLENOL 325 MG PO PRN (00:55)
[2021-04-28] MEDS ORDERED: REMDESIVIR 200 MG in Sodium Chloride 0.9% 250 ML 250 ML IV ONE (01:05)
[2021-04-28] MEDS ORDERED: OLUMIANT PO ONE (01:11)
[2021-04-28] MEDS ORDERED: REMDESIVIR IV ONE (01:18)
[2021-04-28] MEDS ORDERED: Sodium Chloride 0.9% 250 ML 250 ML IV ONE (01:18)
[2021-04-28 06:31] LABS: Hematocrit 41.4 % (35-47); Hemoglobin 12.8 gm/dl (12.0-16.0); Mean Cell Volume 90.8 fl (78-100); Mean Corpuscular Hemoglobin 28.1 pg (26-32); Mean Corpuscular Hgb Concent. 30.9 g/dl (32-36); Mean Platelet Volume 11.3 fl (7.5-11.0); Platelet Count 194 K/mm3 (150-450); Red Blood Count 4.56 M/mm3 (4.1-5.4); White Blood Count 5.3 K/mm3 (4.0-10.5)
[2021-04-28 06:49] LABS: ALBUMIN 3.3 g/dL (3.5-5.0); ALKALINE PHOSPHATASE 39 U/L (38-126); ANION GAP 15.5 MEQ/L (5-15); BLOOD UREA NITROGEN 20 mg/dL (7-17); CHLORIDE 106 mmol/L (98-107); Calcium 8.1 mg/dL (8.4-10.2); Carbon Dioxide 20 mmol/L (22-30); Creatinine 1 0.83 mg/dL (0.52-1.04); EST GLOMERULAR FILTRATION RATE > 60.0 ML/MIN; Glucose 131 mg/dL (74-106); Potassium 4.6 mmol/L (3.5-5.1); SGOT/AST 19 U/L (14-36); SGPT/ALT 10 U/L (0-35); SODIUM 137 mmol/L (137-145); Total Protein 6.2 g/dL (6.3-8.2)
--- NOTE | 2021-04-28 09:12 | XRAY ---
Indication: Short of breath. Pneumonia. Positive Covid 19. Comparison: April 19, 2021. Portable chest demonstrates worsening moderate diffuse bilateral patchy airspace disease again without consolidation/large effusion. Heart not enlarged with again incidental small hiatal hernia.
[2021-04-28] MEDS ORDERED: DUONEB 0.5-3 MG/3 ml Neb IH SCH (11:00)
[2021-04-28] MEDS ORDERED: Ativan 1 MG PO PRN (11:17)
[2021-04-28] MEDS ORDERED: NORCO 5/325 MG PO PRN (11:17)
[2021-04-28] MEDS ORDERED: NON-FORMULARY ITEM (Omeprazole [Omeprazole] 40 MG) PO SCH (12:00)
[2021-04-28] MEDS: ECOTRIN 81 MG PO SCH (12:10)
[2021-04-28] MEDS: Protonix 40MG Tablet PO SCH ×2 (12:10→16:30)
[2021-04-28] MEDS: ZOCOR 20MG PO SCH (12:10)
[2021-04-28] MEDS: ENOXAPARIN SODIUM SQ SCH (12:11)
[2021-04-28] MEDS: DECADRON 10MG INJ. IV SCH (12:11)
[2021-04-28] MEDS: SYNTHROID 100 MCG PO SCH (12:14)
[2021-04-28] MEDS: NON-FORMULARY ITEM PO SCH ×2 (12:14→21:59)
[2021-04-28] MEDS: SYNTHROID 75 MCG PO SCH (12:14)
[2021-04-28] MEDS: Toprol-Xl 25MG Tablets PO SCH ×2 (12:19→22:05)
[2021-04-28] MEDS ORDERED: Combivent Inhaler COMMON CANISTER IH SCH (13:00)
[2021-04-28 14:41] LABS: ANISOCYTOSIS 1+; Lymphocytes 14 % (24-44); Monocyte 1 % (0.0-12.0); Neutrophils 85 % (36.0-66.0); Platelet Estimate NORMAL (NORMAL); Total Cells Counted 100
--- NOTE | 2021-04-28 15:27 | HP ---
CHIEF COMPLAINT: Shortness of breath, positive COVID test. HISTORY OF PRESENT ILLNESS: The patient is a 61 year-old white female who came to the emergency room on the night of admission. She apparently was seen in outpatient setting and was told she had pneumonia and was given some steroids and some antibiotics that made her feel bad and she is still short of breath. After three days of being treated as an outpatient or something, she came to the emergency room. At that time she was mostly tachypneic and in trouble. She is alert and orientated, weak. She denied any nausea, vomiting. She has had some diarrhea and decreased appetite. TRAVEL RISK: She has not been out of the country. CORONAVIRUS SCREENING: She has had the vaccine with the second was in November 2020. She has been exposed to several people with it. MEDICATIONS: Combivent inhaler 2 puffs four times a day, aspirin 81 mg q.d., lorazepam 1 mg h.s., vitamin D 50,000 units per week, metoprolol 50 q.d., Plaquenil 200 b.i.d., simvastatin 40 q.d., Vicodin 325 every six hours PRN, Synthroid 175 mcg q.d., Prilosec 40 q.d. ALLERGIES: NKDA. PAST MEDICAL HISTORY: She has had myocardial infarction, high cholesterol and hypertension. The patient apparently has chronic obstructive pulmonary disease as she is taking Proventil. Hypothyroidism. Fibromyalgia, rheumatic arthritis. Gastroesophageal reflux disease. Some mild renal insufficiency in the past. History of anxiety and depression. History of lupus. PAST SURGICAL HISTORY: She has had her gallbladder removed. Cardiac stent 2010 and at that time she found out at that time one kidney had deteriorated and had kidney function less than 50 and was diagnosed with lupus. She had lumbar decompression due to disc disease in 2011. Hysterectomy. Esophageal surgery. REVIEW OF SYSTEMS: CONSTITUTIONAL: Chills, achiness, tired. HEENT: Runny nose. RESPIRATORY: A little bit of cough. CVS: No chest pain. ABDOMEN: Nausea, some vomiting. EXTREMITIES: Achiness, weakness, fatigue. SOCIAL HISTORY: She states she smoked about one pack year for thirty years but quit numerous years ago. She lives with her . PHYSICAL EXAMINATION: The patient is alert, orientated, in no severe distress this morning. VITAL SIGNS: Temperature 96F, pulse 120, respirations 20, blood pressure 100/80. O2 saturation 88% on room air. HEENT: Pupils equal and reactive to light. NECK: Supple without adenopathy. CHEST: Clear. CVS: No murmurs or gallops. ABDOMEN: Soft. No masses or organomegaly. EXTREMITIES: Tender knees. No edema. No cyanosis. IMPRESSION: The patient has mild COVID despite having vaccination. She will be treated with Remdesivir, Decadron, Olumiant and home medications. PROGNOSIS: [place] to be good.
[2021-04-28] MEDS ORDERED: NON-FORMULARY ITEM (Hydroxychloroquine Sulfate [Plaquenil] 200 MG) PO SCH (22:00)
[2021-04-28] MEDS ORDERED: REMDESIVIR 100 MG in Sodium Chloride 0.9% 100 ML BAG 100 ML IV SCH (22:00)
[2021-04-29 06:36] LABS: Hematocrit 38.4 % (35-47); Hemoglobin 11.9 gm/dl (12.0-16.0); Mean Cell Volume 90.4 fl (78-100); Mean Platelet Volume 11.7 fl (7.5-11.0); Platelet Count 235 K/mm3 (150-450); Red Blood Count 4.25 M/mm3 (4.1-5.4); Red Cell Distribution Width 16.1 % (11.5-14.0); White Blood Count 7.2 K/mm3 (4.0-10.5)
[2021-04-29] MEDS: Protonix 40MG Tablet PO SCH (07:23)
[2021-04-29 07:31] LABS: ANION GAP 14.1 MEQ/L (5-15); BLOOD UREA NITROGEN 19 mg/dL (7-17); CHLORIDE 108 mmol/L (98-107); Calcium 8.5 mg/dL (8.4-10.2); Carbon Dioxide 21 mmol/L (22-30); Creatinine 1 0.85 mg/dL (0.52-1.04); EST GLOMERULAR FILTRATION RATE > 60.0 ML/MIN; Glucose 148 mg/dL (74-106); Potassium 4.1 mmol/L (3.5-5.1); SODIUM 140 mmol/L (137-145)
[2021-04-29] MEDS ORDERED: LEVOTHYROXINE SODIUM 175 MCG PO SCH (10:00)
[2021-04-29] MEDS: ENOXAPARIN SODIUM SQ SCH (10:09)
[2021-04-29] MEDS: ZOCOR 20MG PO SCH (10:10)
[2021-04-29] MEDS: DECADRON 10MG INJ. IV SCH (10:10)
[2021-04-29] MEDS: ECOTRIN 81 MG PO SCH (10:10)
[2021-04-29] MEDS: SYNTHROID 100 MCG PO SCH (10:12)
[2021-04-29] MEDS: SYNTHROID 75 MCG PO SCH (10:12)
[2021-04-29] MEDS: NON-FORMULARY ITEM PO SCH (10:12)
[2021-04-29 12:18] VITALS: BP 107/70; PULSE 70; O2SAT 97
== END 2021-04-29 12:15 | disposition home or self-care (01) ==
LOC: ED 16:18 → MED SURG 04-28 00:46
PROVIDERS: ADMIT Family Medicine; ATTEND Family Medicine
DX: U07.1 COVID-19 (principal); R53.1 Weakness; R19.7 Diarrhea, unspecified; I10 Essential (primary) hypertension; E78.00 Pure hypercholesterolemia, unspecified; J44.9 Chronic obstructive pulmonary disease, unspecified; E03.9 Hypothyroidism, unspecified; Z20.822 Contact with and (suspected) exposure to COVID-19; Z79.899 Other long term (current) drug therapy
CPT/HCPCS: 36000; 36415; 71045; 80048; 80053; 83605; 85025; 85027; 85379; 87040; 87400; 93005; 93268; 94760; 94762; 96374; 99284; G0378; U0003; 96375; J1100; J1650; A9270-GY

== ENCOUNTER 2022-01-20 16:10 | Observation (INO) | payer MEDICARE ==
[2022-01-20] MEDS ORDERED: PROVENTIL 2.5 MG/3 ML NEB IH ONE ×2 (16:18→16:27)
[2022-01-20] MEDS ORDERED: Ativan 1 MG PO ONE (16:19)
[2022-01-20] MEDS ORDERED: BABY ASPIRIN 81 MG CHEW PO ONE (16:19)
[2022-01-20] MEDS ORDERED: Ativan 1 MG ONE (16:24)
[2022-01-20] MEDS ORDERED: BABY ASPIRIN 81 MG CHEW ONE (16:24)
[2022-01-20 16:45] LABS: Absolute Neutrophil Ct (ANC) 3.52 x10^3/uL (1.4-6.9); Basophil (Absolute #) 0.01 x10^3/uL (0-0.4); Eosinophil (Absolute #) 0 x10^3/uL (0-0.5); Hematocrit 37.8 % (35-47); Hemoglobin 11.5 g/dL (12.0-16.0); Lymphocyte (Absolute #) 4.28 x10^3/uL (1.0-4.6); Lymphocytes % 49.2 % (24.0-44.0); Mean Cell Volume 87.9 fL (78-100); Mean Corpuscular Hemoglobin 26.7 pg (26-32); Mean Corpuscular Hgb Concent. 30.4 g/dL (32-36); Monocyte (Absolute #) 0.86 x10^3/uL (0.0-1.3); Monocytes % 9.9 % (0.0-12.0); Neutrophil % 40.5 % (36.0-66.0); Platelet Count 316 x10^3/uL (150-450); Red Cell Distribution Width 16.2 % (11.5-14.0); White Blood Count 8.7 x10^3/uL (4.0-10.5)
--- NOTE | 2022-01-20 16:47 | ERPHSYRPT ---
- History of Present Illness Source: patient Exam Limitations: no limitations Patient Subjective Stated Complaint: SOB Triage Nursing Assessment: Patient ambulated back to ED and transferred self to bed. Patient A+O X 3. Patient's skin flushed, warm and dry. Patient states she all of sudden became SOB and became very anxious. Patient denies pain or discomfort, but states she has occasional chest tightness. Lungs noted to have rhonchi on right lower/mid base. Patient was dx with FLU A on 01/18/2022. Timing/Duration: today, gradual onset, worse Activities at Onset: rest Severity of Dyspnea-Max: moderate Severity of Dyspnea-Current: moderate Possible Cause: unknown cause Modifying Factors: Worsens With: coughing, exertion Associated Symptoms: constant, cough, chest pain/discomfort, wheezing, heaviness, tightness Hx Tetanus, Diphtheria Vaccination/Date Given: Yes Hx Influenza Vaccination/Date Given: Yes Hx Pneumococcal Vaccination/Date Given: No Immunizations Up to Date: Yes - History of Present Illness Time Seen by Provider: 01/20/22 16:18 Physician History: 61 years old female with history of hypertension, hyperlipidemia, COPD, anxiety, fibromyalgia, osteoarthritis, lupus, recent influenza and started taking Tamiflu since morning presented in the ER with shortness of breath chest tightness pressure started around 1 AM. Patient reports she started as everything was closing on her heart and started panicking with shaking all over. No significant aggravating or relieving factors. No palpitations. Patient is very anxious on presentation, tachypneic tachycardic and shaking all over. (DEMI WARD) Allergies/Adverse Reactions: No Known Drug Allergies Allergy (Verified 01/20/22 16:12) Home Medications: Albuterol/Ipratropium Mdi [Combivent Inhaler] 15 gm IH QID 04/24/13 [History] Aspirin EC 81 mg [Ecotrin 81 mg] 81 mg PO DAILY 04/24/13 [History] Lorazepam 1 mg [Ativan 1 MG] 1 mg PO HS PRN 04/24/13 [History] Ergocalciferol (Vitamin D2) [Vitamin D] 50,000 unit PO WEEKLY 05/23/17 [History] Metoprolol Succinate 50 mg [Toprol Xl 50 MG] 25 mg PO BID 05/23/17 [History] Hydroxychloroquine Sulfate [Plaquenil] 200 mg PO BID 06/03/18 [History] Simvastatin 1 ea PO DAILY 09/13/20 [History] Hydrocodone/Acetaminophen [Hydrocodone-Acetamin 5-325 mg] 1 tab PO Q6HPRN PRN 12/21/20 [History] Levothyroxine Sodium [Euthyrox] 175 mcg PO DAILY 12/21/20 [History] Omeprazole 40 mg PO TIDWM 12/21/20 [History] Travel Risk - International Travel Have you traveled outside of the country in past 3 weeks: No - Coronavirus Screening Are you exhibiting any of the following symptoms?: No - Vaccine Status Have you recieved a Covid-19 vaccination: Yes Senior [employer]: Moderna - Vaccination Dates Date of 2cond Vaccination (if applicable): November 2020 - Review of Systems Constitutional: No Symptoms Eyes: No Symptoms Ears, Nose, & Throat: No Symptoms Respiratory: Cough, Dyspnea, Wheezing Cardiac: Chest Pain Abdominal/Gastrointestinal: No Symptoms Genitourinary Symptoms: No Symptoms Musculoskeletal: No Symptoms Skin: No Symptoms Neurological: No Symptoms Psychological: Anxiety Endocrine: No Symptoms Hematologic/Lymphatic: No Symptoms Immunological/Allergic: No Symptoms - Past Medical History Pertinent Past Medical History: Yes Neurological History: No Pertinent History ENT History: No Pertinent History Cardiac History: Coronary Artery Disease, High Cholesterol, Hypertension, Myocardial Infarction ([place]) Respiratory History: No Pertinent History Endocrine Medical History: Hypothyroidism, Other Musculoskeletal History: Fibromyalgia, Rheumatoid Arthritis, Other GI Medical History: GERD, Gallbladder Disease History: Renal Disease Psycho-Social History: Anxiety, Depression Female Reproductive Disorders: Other Other Medical History: PATIENT HAD [place] 2010 AND HAD ONE STENT PLACED. AT THAT TIME FOUND OUT SHE ONE KIDNEY HAD DETERIORATED AND OTHER KIDNEY FUNCTIONING AT LESS THAN 50%. ALSO HAS SYSTEMIC LUPUS. 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 Hx of lupus - Past Surgical History Past Surgical History: Yes Neuro Surgical History: No Pertinent History Cardiac: Cardiac Catheterization, Cardiac Stent Respiratory: No Pertinent History Gastrointestinal: Other Genitourinary: No Pertinent History Musculoskeletal: Other Female Surgical History: Hysterectomy, Tubal Ligation Other Surgical History: colonoscopy, egd,ANSON x two,MARIVEL tubal, tumor removed from back of head. tendon removed from right hand. - Social History Smoking Status: Former smoker How long have you smoked: 30 Exposure to second hand smoke: No Drug Use: none Patient Lives Alone: Yes - Physical Exam General Appearance: no apparent distress, alert, anxiety Eye Exam: PERRL/EOMI, eyes nml inspection Ears, Nose, Throat Exam: hearing grossly normal, normal ENT inspection, normal pharynx Neck Exam: normal inspection, non-tender, supple, full range of motion Respiratory Exam: normal breath sounds, lungs clear Cardiovascular/Chest Exam: regular rate/rhythm, tachycardia Abdominal/Gastrointestinal Exam: soft, normal bowel sounds, No tenderness Extremity Exam: non-tender, normal range of motion Neurologic Exam: alert, oriented x 3, cooperative, warp spooler II-XII nml as tested Skin Exam: normal color SpO2 Interpretation: normal SpO2: 96 O2 Delivery: Room Air - Nursing Vital Signs Nursing Vital Signs: Initial Vital Signs Temperature 98.4 F 01/20/22 16:13 Pulse Rate 126 H 01/20/22 16:13 Respiratory Rate 30 H 01/20/22 16:13 Blood Pressure 133/107 01/20/22 16:13 O2 Sat by Pulse Oximetry 96 01/20/22 16:13 Pain Scale Pain Intensity 0 Ordered Tests: Active Orders 24 hr Category Date Time Status Broommaker STAT Care 01/20/22 16:19 Active EKG-ER Only STAT Care 01/20/22 16:18 Active IV Insertion STAT Care 01/20/22 16:18 Active CHEST 1 VIEW (PORTABLE) Stat Exams 01/20/22 16:19 Taken PULMONARY PERF VENTILATION [NUCMED] Stat Exams 01/20/22 19:15 Ordered BLOOD CULTURE Stat Lab 01/20/22 16:38 Received CBC W DIFF Stat Lab 01/20/22 16:35 Completed CMP Stat Lab 01/20/22 16:35 Completed D-DIMER QUANTITATIVE Stat Lab 01/20/22 16:30 Completed Lactic Acid Stat Lab 01/20/22 16:18 Completed Lactic Acid Stat Lab 01/20/22 18:36 Completed MAGNESIUM Stat Lab 01/20/22 16:35 Completed NT PRO BNP Stat Lab 01/20/22 16:35 Completed TROPONIN Q3H Lab 01/20/22 16:35 Completed TROPONIN Q3H Lab 01/20/22 19:00 Completed TROPONIN Q3H Lab 01/20/22 22:30 Ordered TROPONIN Q3H Lab 01/21/22 01:30 Ordered TROPONIN Q3H Lab 01/21/22 04:30 Ordered UA W/RFX CULTURE Stat Lab 01/20/22 20:13 Ordered Respiratory Therapy Assessment DAILY RT 01/20/22 16:38 Completed Transfer Order Routine Transfer 01/20/22 Ordered Medication Summary Discontinued Medications Generic Name Dose Route Start Last Admin Trade Name Jessica PRN Reason Stop Dose Admin Hydrocodone Bitart/Acetaminophen 1 tab 01/20/22 16:50 01/20/22 16:59 Hydrocodone/Apap 5/325 Mg Tablet PO 01/20/22 16:51 Not Given STAT ONE Albuterol Sulfate 2.5 mg 01/20/22 16:18 01/20/22 16:38 Albuterol Sulfate 2.5 Mg/3 Ml Neb IH 01/20/22 16:19 2.5 mg STAT ONE Administration Albuterol Sulfate Confirm 01/20/22 16:27 Albuterol Sulfate 2.5 Mg/3 Ml Neb Administered 01/20/22 16:28 Dose 2.5 mg IH .STK-MED ONE Aspirin 324 mg 01/20/22 16:19 01/20/22 16:25 Aspirin 81 Mg Tab.Chew PO 01/20/22 16:20 324 mg STAT ONE Administration Aspirin Confirm 01/20/22 16:24 Aspirin 81 Mg Tab.Chew Administered 01/20/22 16:25 Dose 324 mg .ROUTE .STK-MED ONE Ceftriaxone Sodium/Dextrose 2 g in 50 mls @ 100 mls/hr 01/20/22 18:30 01/20/22 19:28 Rocephin 2 Gm-D5w 50ml Bag IV 01/20/22 18:59 Infused STAT STA Infusion Azithromycin 500 mg in 250 mls @ 250 mls/hr 01/20/22 18:30 01/20/22 19:15 Zithromax 500 Mg/ 250 Ml Nacl Premix IV 01/20/22 19:29 250 mls/hr STAT STA 250 mls/hr Administration Ceftriaxone Sodium/Dextrose Confirm 01/20/22 18:39 Rocephin 2 Gm-D5w 50ml Bag Administered 01/20/22 18:40 Dose 2 g in 50 mls @ ud IV .STK-MED ONE Azithromycin Confirm 01/20/22 19:14 Zithromax 500 Mg/ 250 Ml Nacl Premix Administered 01/20/22 19:15 Dose 500 mg in 250 mls @ ud IV .STK-MED ONE Lorazepam 1 mg 01/20/22 16:19 01/20/22 16:25 Lorazepam 1 Mg Tablet PO 01/20/22 16:20 1 mg STAT ONE Administration Lorazepam Confirm 01/20/22 16:24 Lorazepam 1 Mg Tablet Administered 01/20/22 16:25 Dose 1 mg .ROUTE .STK-MED ONE Lab/Rad Data: Laboratory Result Diagrams 01/20/22 16:35 01/20/22 16:35 Laboratory Results 01/20/22 01/20/22 01/20/22 Range/Units 19:05 19:00 18:36 WBC (4.0-10.5) x10^3/uL RBC (4.1-5.4) x10^6/uL Hgb (12.0-16.0) g/dL Hct (35-47) % MCV (78-100) fL MCH (26-32) pg MCHC (32-36) g/dL RDW (11.5-14.0) % Plt Count (150-450) x10^3/uL MPV (7.5-11.0) fL Gran % (36.0-66.0) % Immature Gran % (Auto) (0.00-0.4) % Nucleat RBC Rel Count (0.00-0.1) % Eos # (Auto) (0-0.5) x10^3/uL Immature Gran # (Auto) (0.00-0.03) x10^3u/L Absolute Lymphs (auto) (1.0-4.6) x10^3/uL Absolute Monos (auto) (0.0-1.3) x10^3/uL Absolute Nucleated RBC (0.00-0.01) x10^3u/L Lymphocytes % (24.0-44.0) % Monocytes % (0.0-12.0) % Eosinophils % (0.00-5.0) % Basophils % (0.0-0.4) % Absolute Granulocytes (1.4-6.9) x10^3/uL Basophils # (0-0.4) x10^3/uL D-Dimer (0.0-0.50) ng/mL Sodium (137-145) mmol/L Potassium (3.5-5.1) mmol/L Chloride (98-107) mmol/L Carbon Dioxide (22-30) mmol/L Anion Gap (5-15) MEQ/L BUN (7-17) mg/dL Creatinine (0.52-1.04) mg/dL Estimated GFR ML/MIN Glucose (74-106) mg/dL Lactic Acid 1.7 (0.4-2.0) Calcium (8.4-10.2) mg/dL Magnesium (1.6-2.3) mg/dL Total Bilirubin (0.2-1.3) mg/dL AST (14-36) U/L ALT (0-35) U/L Alkaline Phosphatase (38-126) U/L Troponin I < 0.012 (0.000-0.034) ng/mL NT-Pro-B Natriuret Pep (0-900) pg/mL Serum Total Protein (6.3-8.2) g/dL Albumin (3.5-5.0) g/dL Influenza Type A Ag POSITIVE (NEGATIVE) Influenza Type B Ag NEGATIVE (NEGATIVE) RSV (PCR) NEGATIVE (Negative) SARS-CoV-2 (PCR) NEGATIVE (NEGATIVE) 01/20/22 01/20/22 01/20/22 Range/Units 16:35 16:35 16:35 WBC 8.7 (4.0-10.5) x10^3/uL RBC 4.30 (4.1-5.4) x10^6/uL Hgb 11.5 L (12.0-16.0) g/dL Hct 37.8 (35-47) % MCV 87.9 (78-100) fL MCH 26.7 (26-32) pg MCHC 30.4 L (32-36) g/dL RDW 16.2 H (11.5-14.0) % Plt Count 316 (150-450) x10^3/uL MPV 11.0 (7.5-11.0) fL Gran % 40.5 (36.0-66.0) % Immature Gran % (Auto) 0.3 (0.00-0.4) % Nucleat RBC Rel Count 0.0 (0.00-0.1) % Eos # (Auto) 0 (0-0.5) x10^3/uL Immature Gran # (Auto) 0.03 (0.00-0.03) x10^3u/L Absolute Lymphs (auto) 4.28 (1.0-4.6) x10^3/uL Absolute Monos (auto) 0.86 (0.0-1.3) x10^3/uL Absolute Nucleated RBC 0.00 (0.00-0.01) x10^3u/L Lymphocytes % 49.2 H (24.0-44.0) % Monocytes % 9.9 (0.0-12.0) % Eosinophils % 0.0 (0.00-5.0) % Basophils % 0.1 (0.0-0.4) % Absolute Granulocytes 3.52 (1.4-6.9) x10^3/uL Basophils # 0.01 (0-0.4) x10^3/uL D-Dimer (0.0-0.50) ng/mL Sodium 144 (137-145) mmol/L Potassium 4.3 (3.5-5.1) mmol/L Chloride 109 H (98-107) mmol/L Carbon Dioxide 21 L (22-30) mmol/L Anion Gap 17.6 H (5-15) MEQ/L BUN 23 H (7-17) mg/dL Creatinine 1.36 H (0.52-1.04) mg/dL Estimated GFR 41.9 ML/MIN Glucose 86 (74-106) mg/dL Lactic Acid (0.4-2.0) Calcium 9.1 (8.4-10.2) mg/dL Magnesium 2.1 (1.6-2.3) mg/dL Total Bilirubin 0.70 (0.2-1.3) mg/dL AST 34 (14-36) U/L ALT 21 (0-35) U/L Alkaline Phosphatase 48 (38-126) U/L Troponin I < 0.012 (0.000-0.034) ng/mL NT-Pro-B Natriuret Pep 889 (0-900) pg/mL Serum Total Protein 6.7 (6.3-8.2) g/dL Albumin 3.9 (3.5-5.0) g/dL Influenza Type A Ag (NEGATIVE) Influenza Type B Ag (NEGATIVE) RSV (PCR) (Negative) SARS-CoV-2 (PCR) (NEGATIVE) 01/20/22 01/20/22 Range/Units 16:30 16:18 WBC (4.0-10.5) x10^3/uL RBC (4.1-5.4) x10^6/uL Hgb (12.0-16.0) g/dL Hct (35-47) % MCV (78-100) fL MCH (26-32) pg MCHC (32-36) g/dL RDW (11.5-14.0) % Plt Count (150-450) x10^3/uL MPV (7.5-11.0) fL Gran % (36.0-66.0) % Immature Gran % (Auto) (0.00-0.4) % Nucleat RBC Rel Count (0.00-0.1) % Eos # (Auto) (0-0.5) x10^3/uL Immature Gran # (Auto) (0.00-0.03) x10^3u/L Absolute Lymphs (auto) (1.0-4.6) x10^3/uL Absolute Monos (auto) (0.0-1.3) x10^3/uL Absolute Nucleated RBC (0.00-0.01) x10^3u/L Lymphocytes % (24.0-44.0) % Monocytes % (0.0-12.0) % Eosinophils % (0.00-5.0) % Basophils % (0.0-0.4) % Absolute Granulocytes (1.4-6.9) x10^3/uL Basophils # (0-0.4) x10^3/uL D-Dimer 0.82 H* (0.0-0.50) ng/mL Sodium (137-145) mmol/L Potassium (3.5-5.1) mmol/L Chloride (98-107) mmol/L Carbon Dioxide (22-30) mmol/L Anion Gap (5-15) MEQ/L BUN (7-17) mg/dL Creatinine (0.52-1.04) mg/dL Estimated GFR ML/MIN Glucose (74-106) mg/dL Lactic Acid 3.8 H (0.4-2.0) Calcium (8.4-10.2) mg/dL Magnesium (1.6-2.3) mg/dL Total Bilirubin (0.2-1.3) mg/dL AST (14-36) U/L ALT (0-35) U/L Alkaline Phosphatase (38-126) U/L Troponin I (0.000-0.034) ng/mL NT-Pro-B Natriuret Pep (0-900) pg/mL Serum Total Protein (6.3-8.2) g/dL Albumin (3.5-5.0) g/dL Influenza Type A Ag (NEGATIVE) Influenza Type B Ag (NEGATIVE) RSV (PCR) (Negative) SARS-CoV-2 (PCR) (NEGATIVE) - Progress Progress: improved Air Movement: fair Blood Culture(s) Obtained: Yes Antibiotics given: Yes Discussed with : Caryn Will see patient in: hospital (observation) Counseled pt/family regarding: lab results, diagnosis, rad results - Progress Progress Note: 01/20/22 18:41 61 years old is evaluated for sudden worsening shortness of breath and does have influenza. Patient was tachycardic and tachypneic on presentation, given breathing treatment, on reevaluation feeling better. She is also given an Ativan and is much more relaxed. Chest x-ray showed developing pneumonia on the right side, given a dose of antibiotic as well. Has normal white count, lactate of 3.8. Initial troponins are negative. D-dimer is pending. I believe patient would benefit with observation and antibiotics. Discussed with Dr. Esposito and patient is being admitted for observation. 01/20/22 18:55 (DEMI WARD) - Departure Departure Disposition: Observation Critical Care Time: No - Departure Clinical Impression: Influenza, Pneumonia Condition: Stable Referrals: PEDRO JOYNER [Primary Care Provider] - Follow up/PCP as directed
[2022-01-20] MEDS ORDERED: NORCO 5/325 MG PO ONE (16:50)
[2022-01-20 17:09] LABS: ALBUMIN 3.9 g/dL (3.5-5.0); ANION GAP 17.6 MEQ/L (5-15); BILIRUBIN,TOTAL 0.7 mg/dL (0.2-1.3); Calcium 9.1 mg/dL (8.4-10.2); Creatinine 1 1.36 mg/dL (0.52-1.04); EST GLOMERULAR FILTRATION RATE 41.9 ML/MIN; MAGNESIUM 2.1 mg/dL (1.6-2.3); Potassium 4.3 mmol/L (3.5-5.1); Total Protein 6.7 g/dL (6.3-8.2)
[2022-01-20] MEDS ORDERED: Zithromax 500 MG/ 250 ML NaCl Premix 500 MG/250 ML IVPB IV STA (18:30)
[2022-01-20] MEDS ORDERED: ROCEPHIN 2 Gm-D5w 50ML BAG** 2 G/50 ML IVPB IV STA ×2 (18:30→21:03)
[2022-01-20] MEDS ORDERED: ROCEPHIN 2 Gm-D5w 50ML BAG** 2 G/50 ML IVPB IV ONE (18:39)
[2022-01-20] MEDS ORDERED: Zithromax 500 MG/ 250 ML NaCl Premix 500 MG/250 ML IVPB IV ONE (19:14)
[2022-01-20 19:59] LABS: INFLUENZA B NEGATIVE (NEGATIVE); RESPIRATORY SYNCTIAL VIRUS NEGATIVE (Negative); SARS-CoV-2 Xpert Express NEGATIVE (NEGATIVE)
[2022-01-20 20:02] LABS: INFLUENZA A POSITIVE (NEGATIVE)
[2022-01-20] MEDS ORDERED: ENOXAPARIN SODIUM SQ SCH (20:30)
[2022-01-20 20:33] LABS: Appearance CLEAR (CLEAR)
[2022-01-20] MEDS ORDERED: ENOXAPARIN SODIUM SQ ONE (20:33)
[2022-01-20 20:34] LABS: Bilirubin NEGATIVE (NEGATIVE); Dipstick done @ ? MAIN LAB; Glucose NEGATIVE (NEGATIVE); Ketones TRACE (NEGATIVE); Nitrite NEGATIVE (NEGATIVE); Protein,Urine Dip 30 (Negative); RBC SMALL Ery/ul (0-5); Specific Gravity 1.025 (1.005-1.025); Urobilinogen 0.2 mg/dL (0-1)
[2022-01-20 20:40] LABS: Bacteria RARE /HPF (NEGATIVE); Hyaline Casts 0-2 /LPF (0-2); Mucus SLIGHT /HPF (NEGATIVE); WBC 26-50 /HPF (0-5)
[2022-01-20 20:41] LABS: Urine Cultured Indicated? YES
[2022-01-20] MEDS ORDERED: TYLENOL 325 MG PO PRN (21:03)
[2022-01-20] MEDS ORDERED: DUONEB 0.5-3 MG/3 ml Neb IH SCH (21:03)
--- NOTE | 2022-01-20 22:05 | XRAY ---
Indication: Short of breath. Positive influenza. Comparison: January 18, 2022. Portable chest demonstrate minimal left upper lobe interstitial alveolar opacities. Remaining heart and lungs unremarkable. Stable small hiatal hernia. Bony thorax intact again with osteopenia.
[2022-01-20] MEDS ORDERED: PROVENTIL Solution 2.5 MG/0.5 ML IH ONE (22:33)
[2022-01-20] MEDS ORDERED: Toprol Xl 50 MG PO SCH (22:42)
[2022-01-20] MEDS ORDERED: PROVENTIL 2.5 MG/3 ML NEB IH PRN (22:54)
[2022-01-20] MEDS ORDERED: Tamiflu 75MG Capsule PO ONE (23:02)
[2022-01-20] MEDS: OSELTAMIVIR PHOSPHATE 30 MG CAP PO SCH (23:09)
[2022-01-20] MEDS: Ativan 1 MG PO PRN (23:11)
[2022-01-20] MEDS: ZOCOR 20MG PO SCH (23:12)
[2022-01-21] MEDS: MORPHINE SULFATE 2 MG INJ IV PRN (01:32)
[2022-01-21] MEDS: Zofran 4 MG/2 ML VIAL IV PRN (01:32)
[2022-01-21] MEDS ORDERED: Xopenex 1.25 MG/0.5 ML UD NEBULE IH PRN (02:03)
[2022-01-21] MEDS ORDERED: SYNTHROID 25 MCG ONE (05:45)
[2022-01-21] MEDS ORDERED: SYNTHROID 50 MCG ONE (05:45)
[2022-01-21] MEDS: SYNTHROID 100 MCG PO SCH (05:46)
[2022-01-21] MEDS: SYNTHROID 75 MCG PO SCH (05:47)
[2022-01-21 06:16] LABS: Basophil (Absolute #) 0.01 x10^3/uL (0-0.4); Eosinophil (Absolute #) 0 x10^3/uL (0-0.5); Hematocrit 33.9 % (35-47); Hemoglobin 9.8 g/dL (12.0-16.0); Lymphocyte (Absolute #) 2.75 x10^3/uL (1.0-4.6); Lymphocytes % 50.6 % (24.0-44.0); Mean Cell Volume 90.2 fL (78-100); Mean Corpuscular Hemoglobin 26.1 pg (26-32); Mean Corpuscular Hgb Concent. 28.9 g/dL (32-36); Mean Platelet Volume 11.1 fL (7.5-11.0); Monocyte (Absolute #) 0.44 x10^3/uL (0.0-1.3); Monocytes % 8.1 % (0.0-12.0); Neutrophil % 40.4 % (36.0-66.0); Platelet Count 199 x10^3/uL (150-450); Red Blood Count 3.76 x10^6/uL (4.1-5.4); Red Cell Distribution Width 16.4 % (11.5-14.0); White Blood Count 5.4 x10^3/uL (4.0-10.5)
[2022-01-21 06:28] LABS: ALBUMIN 3.2 g/dL (3.5-5.0); ANION GAP 11.8 MEQ/L (5-15); BILIRUBIN,TOTAL 0.4 mg/dL (0.2-1.3); Calcium 8.2 mg/dL (8.4-10.2); Creatinine 1 1.2 mg/dL (0.52-1.04); EST GLOMERULAR FILTRATION RATE 48.4 ML/MIN; Potassium 3.6 mmol/L (3.5-5.1); Total Protein 5.9 g/dL (6.3-8.2)
[2022-01-21] MEDS ORDERED: DUONEB 0.5-3 MG/3 ml Neb IH SCH (07:00)
[2022-01-21] MEDS: Atrovent 0.5MG NEBULE IH SCH ×4 (08:26→19:36)
[2022-01-21] MEDS: Xopenex 1.25 MG/0.5 ML UD NEBULE IH SCH ×4 (08:27→19:37)
[2022-01-21 09:13] LABS: Slide Review 1 YES
[2022-01-21] MEDS: ROCEPHIN 2 Gm-D5w 50ML BAG** 2 G/50 ML IVPB IV SCH (09:21)
[2022-01-21] MEDS: Zithromax 500 MG/ 250 ML NaCl Premix 500 MG/250 ML IVPB IV SCH (09:21)
[2022-01-21] MEDS: OSELTAMIVIR PHOSPHATE 30 MG CAP PO SCH ×2 (09:22→21:33)
[2022-01-21] MEDS: Toprol-Xl 25MG Tablets PO SCH ×2 (09:22→21:33)
[2022-01-21] MEDS: ENOXAPARIN SODIUM SQ SCH ×2 (09:22→21:33)
[2022-01-21] MEDS ORDERED: PROTONIX 40 MG IV IV SCH (10:00)
[2022-01-21] MEDS ORDERED: MEDICATION INTERVENTION MC SCH (12:15)
[2022-01-21] MEDS ORDERED: Sodium Chloride 0.9% 500 ML 500 ML IV ONE (12:31)
[2022-01-21] MEDS ORDERED: Ativan 0.5 MG PO ONE (12:41)
[2022-01-21] MEDS: solu-MEDROL 40 MG, Sterile H2O 10 ml 1 ML IV SCH ×4 (13:00→21:32)
[2022-01-21] MEDS: ECOTRIN 81 MG PO SCH (13:00)
[2022-01-21] MEDS: Sodium Chloride 0.9% 1000 ML 1,000 ML IV SCH (13:00)
[2022-01-21] MEDS: Robitussin AC Syrup Unit Dose Cup PO PRN ×2 (13:00→21:31)
[2022-01-21 14:43] LABS: ANION GAP 9.9 MEQ/L (5-15); Calcium 8.1 mg/dL (8.4-10.2); Creatinine 1 1.14 mg/dL (0.52-1.04); EST GLOMERULAR FILTRATION RATE 51.3 ML/MIN; Potassium 3.4 mmol/L (3.5-5.1)
--- NOTE | 2022-01-21 16:17 | PCM.HP ---
History of Present Illness - Chief Complaint Chief Complaint: Pneumonia History of Present Illness: is a 61 year old female pt of Dr. Nerissa Arthur who was admitted through ER wt JOSHUA pneumonia and flu (dx 01/18/22). She was started on IV rocephin and zithromax. She woke yesterday morning at 1 am with her heart racing. She has anxiety after the recent deaths of her daughter, her , and her mom, but she can usually calm herself down. However yesterday she had nonradiating epigastric pressure, 7/10, diaphoresis (no nausea), shortness of breath, and shaking. Her HR was 149. She came to ER and CXR showed pna. She was admitted for further tx with antibiotics (had previously taken 1 dose of tamiflu and had increasing SOB afterward). Her d-dimer was elevated in ER, but her eGFR was 41.9 so she was unable to have a CT chest with contrast to r/o PE. This morning her eGFR is 48.4. She was given a therapeutic dose of lovenox SC in the ER. - Review of Systems Constitutional: Fever (last on 01/18/22.), Weakness Respiratory: Cough, Short Of Breath Cardiac: Chest Pain, Palpitations Medications & Allergies Home Medications: Home Medication List Albuterol/Ipratropium Mdi [Combivent Inhaler] 2 inh IH QID PRN PRN 04/24/13 [History Confirmed 01/20/22] Aspirin EC 81 mg [Ecotrin 81 mg] 81 mg PO DAILY 04/24/13 [History Confirmed 01/20/22] Lorazepam 1 mg [Ativan 1 MG] 1 mg PO HS PRN 04/24/13 [History Confirmed 01/20/22] Ergocalciferol (Vitamin D2) [Vitamin D] 50,000 unit PO WEEKLY 05/23/17 [History Confirmed 01/20/22] Metoprolol Succinate 50 mg [Toprol Xl 50 MG] 25 mg PO BID 05/23/17 [History Confirmed 01/20/22] Hydroxychloroquine Sulfate [Plaquenil] 200 mg PO BID 06/03/18 [History Confirmed 01/20/22] Simvastatin 1 ea PO HS 09/13/20 [History Confirmed 01/20/22] Levothyroxine Sodium [Euthyrox] 175 mcg PO DAILY 12/21/20 [History Confirmed 01/20/22] Omeprazole 40 mg PO DAILY 12/21/20 [History Confirmed 01/20/22] Prednisone 20 mg [Deltasone 20 mg] 20 mg PO DAILY 01/20/22 [History Confirmed 01/20/22] Allergies/Adverse Reactions: Allergies Allergy/AdvReac Type Severity Reaction Status Date / Time No Known Drug Allergies Allergy Verified 01/20/22 16:12 - Past Medical History Past Medical History: Yes Neurological History: No Pertinent History ENT History: No Pertinent History Cardiac History: Coronary Artery Disease, Deep Vein Thrombosis, High Ch olesterol, Hypertension, Myocardial Infarction (DE) Respiratory History: No Pertinent History Endocrine Medical History: Hypothyroidism Musculoskelatal History: Fibromyalgia, Rheumatoid Arthritis, Other GI Medical History: GERD, Gallbladder Disease History: Renal Disease Pyscho-Social History: Anxiety, Depression Reproductive Disorders: Other Comment: PATIENT HAD DE 2010 AND HAD ONE STENT PLACED. AT THAT TIME FOUND OUT SHE ONE KIDNEY HAD DETERIORATED AND OTHER KIDNEY FUNCTIONING AT LESS THAN 50%. ALSO HAS SYSTEMIC LUPUS. 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 Hx of lupus - Past Surgical History Past Surgical History: Yes Neuro Surgical History: No Pertinent History Cardiac History: Cardiac Catheterization, Cardiac Stent Respiratory Surgery: No Pertinent History GI Surgical History: Other Genitourinary Surgical Hx: No Pertinent History Musculskeletal Surgical Hx: Other Female Surgical History: Hysterectomy, Tubal Ligation Other Surgical History: colonoscopy, egd,ANSON x two,MARIVEL tubal, tumor removed from back of head. tendon removed from right hand. - Social History Smoking Status: Former smoker How long have you smoked: 30 Exposure to second hand smoke: No Alcohol: None Drug Use: none - Physical Exam Vital Signs: Vital Signs - 24 hr Temp Pulse Resp BP Pulse Ox 01/21/22 12:28 71 18 95 01/21/22 12:00 96.8 F 79 18 122/76 92 L 01/21/22 08:27 82 18 95 01/21/22 07:57 97 F 76 18 141/73 95 01/21/22 04:00 97.3 F 72 20 140/72 95 01/20/22 23:48 97.3 F 105 H 22 136/65 96 01/20/22 22:57 81 20 97 01/20/22 21:30 97.3 F 84 22 145/63 95 01/20/22 20:02 89 20 126/90 97 01/20/22 19:58 95 H 20 126/90 97 01/20/22 18:59 96 01/20/22 18:53 96 H 20 125/90 95 01/20/22 16:38 112 H 21 96 01/20/22 16:13 98.4 F 126 H 30 H 133/107 96 General Appearance: no apparent distress, alert Neurologic Exam: oriented x 3, cooperative Eye Exam: eyes nml inspection Ears, Nose, Throat Exam: moist mucous membranes Neck Exam: normal inspection, non-tender, No lymphadenopathy, No thyromegaly Respiratory Exam: diminished breath sounds (good air exchange), rhonchi (scatte red), wheezing (faint, throughout, expiratory), No crackles/rales Cardiovascular Exam: regular rate/rhythm, normal heart sounds, No murmur Gastrointestinal/Abdomen Exam: soft, normal bowel sounds, tenderness (mild, in epigastrum), No distention, No mass, No guarding, No rebound Back Exam: normal inspection, No rash Extremity Exam: normal inspection, No pedal edema, No swelling Skin Exam: normal color, warm, dry, No rash Results - Labs Lab/Micro Results: Lab Results-Last 24 Hours 01/20/22 01/20/22 01/20/22 Range/Units 16:18 16:30 16:35 WBC 8.7 (4.0-10.5) x10^3/uL RBC 4.30 (4.1-5.4) x10^6/uL Hgb 11.5 L (12.0-16.0) g/dL Hct 37.8 (35-47) % MCV 87.9 (78-100) fL MCH 26.7 (26-32) pg MCHC 30.4 L (32-36) g/dL RDW 16.2 H (11.5-14.0) % Plt Count 316 (150-450) x10^3/uL MPV 11.0 (7.5-11.0) fL Gran % 40.5 (36.0-66.0) % Immature Gran % (Auto) 0.3 (0.00-0.4) % Nucleat RBC Rel Count 0.0 (0.00-0.1) % Eos # (Auto) 0 (0-0.5) x10^3/uL Immature Gran # (Auto) 0.03 (0.00-0.03) x10^3u/L Absolute Lymphs (auto) 4.28 (1.0-4.6) x10^3/uL Absolute Monos (auto) 0.86 (0.0-1.3) x10^3/uL Absolute Nucleated RBC 0.00 (0.00-0.01) x10^3u/L Lymphocytes % 49.2 H (24.0-44.0) % Monocytes % 9.9 (0.0-12.0) % Eosinophils % 0.0 (0.00-5.0) % Basophils % 0.1 (0.0-0.4) % Absolute Granulocytes 3.52 (1.4-6.9) x10^3/uL Basophils # 0.01 (0-0.4) x10^3/uL D-Dimer 0.82 H* (0.0-0.50) ng/mL Sodium (137-145) mmol/L Potassium (3.5-5.1) mmol/L Chloride (98-107) mmol/L Carbon Dioxide (22-30) mmol/L Anion Gap (5-15) MEQ/L BUN (7-17) mg/dL Creatinine (0.52-1.04) mg/dL Estimated GFR ML/MIN Glucose (74-106) mg/dL Lactic Acid 3.8 H (0.4-2.0) Calcium (8.4-10.2) mg/dL Magnesium (1.6-2.3) mg/dL Total Bilirubin (0.2-1.3) mg/dL AST (14-36) U/L ALT (0-35) U/L Alkaline Phosphatase (38-126) U/L Troponin I (0.000-0.034) ng/mL NT-Pro-B Natriuret Pep (0-900) pg/mL Serum Total Protein (6.3-8.2) g/dL Albumin (3.5-5.0) g/dL Urinalys Dipstick Clnc Urine Color (YELLOW) Urine Appearance (CLEAR) Urine pH (5-6) Ur Specific [place] (1.005-1.025) POC Urine Protein Conf (Negative) Urine Ketones (NEGATIVE) Urine Nitrite (NEGATIVE) Urine Bilirubin (NEGATIVE) Urine Urobilinogen (0-1) mg/dL Urine Leukocytes (NEGATIVE) Urine WBC (Auto) (0-5) /HPF Urine RBC (Auto) (0-2) /HPF U Hyaline Cast (Auto) (0-2) /LPF U Epithel Cells (Auto) (FEW) /HPF Urine Bacteria (Auto) (NEGATIVE) /HPF Urine RBC (0-5) Candelario/ul Urine Mucus (Auto) (NEGATIVE) /HPF Ur Culture Indicated? Urine Glucose (NEGATIVE) mg/dL Influenza Type A Ag (NEGATIVE) Influenza Type B Ag (NEGATIVE) RSV (PCR) (Negative) SARS-CoV-2 (PCR) (NEGATIVE) Slides for Path Review 01/20/22 01/20/22 01/20/22 Range/Units 16:35 16:35 18:36 WBC (4.0-10.5) x10^3/uL RBC (4.1-5.4) x10^6/uL Hgb (12.0-16.0) g/dL Hct (35-47) % MCV (78-100) fL MCH (26-32) pg MCHC (32-36) g/dL RDW (11.5-14.0) % Plt Count (150-450) x10^3/uL MPV (7.5-11.0) fL Gran % (36.0-66.0) % Immature Gran % (Auto) (0.00-0.4) % Nucleat RBC Rel Count (0.00-0.1) % Eos # (Auto) (0-0.5) x10^3/uL Immature Gran # (Auto) (0.00-0.03) x10^3u/L Absolute Lymphs (auto) (1.0-4.6) x10^3/uL Absolute Monos (auto) (0.0-1.3) x10^3/uL Absolute Nucleated RBC (0.00-0.01) x10^3u/L Lymphocytes % (24.0-44.0) % Monocytes % (0.0-12.0) % Eosinophils % (0.00-5.0) % Basophils % (0.0-0.4) % Absolute Granulocytes (1.4-6.9) x10^3/uL Basophils # (0-0.4) x10^3/uL D-Dimer (0.0-0.50) ng/mL Sodium 144 (137-145) mmol/L Potassium 4.3 (3.5-5.1) mmol/L Chloride 109 H (98-107) mmol/L Carbon Dioxide 21 L (22-30) mmol/L Anion Gap 17.6 H (5-15) MEQ/L BUN 23 H (7-17) mg/dL Creatinine 1.36 H (0.52-1.04) mg/dL Estimated GFR 41.9 ML/MIN Glucose 86 (74-106) mg/dL Lactic Acid 1.7 (0.4-2.0) Calcium 9.1 (8.4-10.2) mg/dL Magnesium 2.1 (1.6-2.3) mg/dL Total Bilirubin 0.70 (0.2-1.3) mg/dL AST 34 (14-36) U/L ALT 21 (0-35) U/L Alkaline Phosphatase 48 (38-126) U/L Troponin I < 0.012 (0.000-0.034) ng/mL NT-Pro-B Natriuret Pep 889 (0-900) pg/mL Serum Total Protein 6.7 (6.3-8.2) g/dL Albumin 3.9 (3.5-5.0) g/dL Urinalys Dipstick Clnc Urine Color (YELLOW) Urine Appearance (CLEAR) Urine pH (5-6) Ur Specific [place] (1.005-1.025) POC Urine Protein Conf (Negative) Urine Ketones (NEGATIVE) Urine Nitrite (NEGATIVE) Urine Bilirubin (NEGATIVE) Urine Urobilinogen (0-1) mg/dL Urine Leukocytes (NEGATIVE) Urine WBC (Auto) (0-5) /HPF Urine RBC (Auto) (0-2) /HPF U Hyaline Cast (Auto) (0-2) /LPF U Epithel Cells (Auto) (FEW) /HPF Urine Bacteria (Auto) (NEGATIVE) /HPF Urine RBC (0-5) Candelario/ul Urine Mucus (Auto) (NEGATIVE) /HPF Ur Culture Indicated? Urine Glucose (NEGATIVE) mg/dL Influenza Type A Ag (NEGATIVE) Influenza Type B Ag (NEGATIVE) RSV (PCR) (Negative) SARS-CoV-2 (PCR) (NEGATIVE) Slides for Path Review 01/20/22 01/20/22 01/20/22 Range/Units 19:00 19:05 20:13 WBC (4.0-10.5) x10^3/uL RBC (4.1-5.4) x10^6/uL Hgb (12.0-16.0) g/dL Hct (35-47) % MCV (78-100) fL MCH (26-32) pg MCHC (32-36) g/dL RDW (11.5-14.0) % Plt Count (150-450) x10^3/uL MPV (7.5-11.0) fL Gran % (36.0-66.0) % Immature Gran % (Auto) (0.00-0.4) % Nucleat RBC Rel Count (0.00-0.1) % Eos # (Auto) (0-0.5) x10^3/uL Immature Gran # (Auto) (0.00-0.03) x10^3u/L Absolute Lymphs (auto) (1.0-4.6) x10^3/uL Absolute Monos (auto) (0.0-1.3) x10^3/uL Absolute Nucleated RBC (0.00-0.01) x10^3u/L Lymphocytes % (24.0-44.0) % Monocytes % (0.0-12.0) % Eosinophils % (0.00-5.0) % Basophils % (0.0-0.4) % Absolute Granulocytes (1.4-6.9) x10^3/uL Basophils # (0-0.4) x10^3/uL D-Dimer (0.0-0.50) ng/mL Sodium (137-145) mmol/L Potassium (3.5-5.1) mmol/L Chloride (98-107) mmol/L Carbon Dioxide (22-30) mmol/L Anion Gap (5-15) MEQ/L BUN (7-17) mg/dL Creatinine (0.52-1.04) mg/dL Estimated GFR ML/MIN Glucose (74-106) mg/dL Lactic Acid (0.4-2.0) Calcium (8.4-10.2) mg/dL Magnesium (1.6-2.3) mg/dL Total Bilirubin (0.2-1.3) mg/dL AST (14-36) U/L ALT (0-35) U/L Alkaline Phosphatase (38-126) U/L Troponin I < 0.012 (0.000-0.034) ng/mL NT-Pro-B Natriuret Pep (0-900) pg/mL Serum Total Protein (6.3-8.2) g/dL Albumin (3.5-5.0) g/dL Urinalys Dipstick Clnc MAIN LAB Urine Color YELLOW (YELLOW) Urine Appearance CLEAR (CLEAR) Urine pH 5.0 (5-6) Ur Specific [place] 1.025 (1.005-1.025) POC Urine Protein Conf 30 (Negative) Urine Ketones TRACE (NEGATIVE) Urine Nitrite NEGATIVE (NEGATIVE) Urine Bilirubin NEGATIVE (NEGATIVE) Urine Urobilinogen 0.2 (0-1) mg/dL Urine Leukocytes SMALL (NEGATIVE) Urine WBC (Auto) 26-50 (0-5) /HPF Urine RBC (Auto) 3-5 (0-2) /HPF U Hyaline Cast (Auto) 0-2 (0-2) /LPF U Epithel Cells (Auto) NONE (FEW) /HPF Urine Bacteria (Auto) RARE (NEGATIVE) /HPF Urine RBC SMALL (0-5) Candelario/ul Urine Mucus (Auto) SLIGHT (NEGATIVE) /HPF Ur Culture Indicated? YES Urine Glucose NEGATIVE (NEGATIVE) mg/dL Influenza Type A Ag POSITIVE (NEGATIVE) Influenza Type B Ag NEGATIVE (NEGATIVE) RSV (PCR) NEGATIVE (Negative) SARS-CoV-2 (PCR) NEGATIVE (NEGATIVE) Slides for Path Review 01/20/22 01/21/22 01/21/22 Range/Units 23:00 02:21 05:33 WBC (4.0-10.5) x10^3/uL RBC (4.1-5.4) x10^6/uL Hgb (12.0-16.0) g/dL Hct (35-47) % MCV (78-100) fL MCH (26-32) pg MCHC (32-36) g/dL RDW (11.5-14.0) % Plt Count (150-450) x10^3/uL MPV (7.5-11.0) fL Gran % (36.0-66.0) % Immature Gran % (Auto) (0.00-0.4) % Nucleat RBC Rel Count (0.00-0.1) % Eos # (Auto) (0-0.5) x10^3/uL Immature Gran # (Auto) (0.00-0.03) x10^3u/L Absolute Lymphs (auto) (1.0-4.6) x10^3/uL Absolute Monos (auto) (0.0-1.3) x10^3/uL Absolute Nucleated RBC (0.00-0.01) x10^3u/L Lymphocytes % (24.0-44.0) % Monocytes % (0.0-12.0) % Eosinophils % (0.00-5.0) % Basophils % (0.0-0.4) % Absolute Granulocytes (1.4-6.9) x10^3/uL Basophils # (0-0.4) x10^3/uL D-Dimer (0.0-0.50) ng/mL Sodium (137-145) mmol/L Potassium (3.5-5.1) mmol/L Chloride (98-107) mmol/L Carbon Dioxide (22-30) mmol/L Anion Gap (5-15) MEQ/L BUN (7-17) mg/dL Creatinine (0.52-1.04) mg/dL Estimated GFR ML/MIN Glucose (74-106) mg/dL Lactic Acid (0.4-2.0) Calcium (8.4-10.2) mg/dL Magnesium (1.6-2.3) mg/dL Total Bilirubin (0.2-1.3) mg/dL AST (14-36) U/L ALT (0-35) U/L Alkaline Phosphatase (38-126) U/L Troponin I < 0.012 < 0.012 < 0.012 (0.000-0.034) ng/mL NT-Pro-B Natriuret Pep (0-900) pg/mL Serum Total Protein (6.3-8.2) g/dL Albumin (3.5-5.0) g/dL Urinalys Dipstick Clnc Urine Color (YELLOW) Urine Appearance (CLEAR) Urine pH (5-6) Ur Specific [place] (1.005-1.025) POC Urine Protein Conf (Negative) Urine Ketones (NEGATIVE) Urine Nitrite (NEGATIVE) Urine Bilirubin (NEGATIVE) Urine Urobilinogen (0-1) mg/dL Urine Leukocytes (NEGATIVE) Urine WBC (Auto) (0-5) /HPF Urine RBC (Auto) (0-2) /HPF U Hyaline Cast (Auto) (0-2) /LPF U Epithel Cells (Auto) (FEW) /HPF Urine Bacteria (Auto) (NEGATIVE) /HPF Urine RBC (0-5) Candelario/ul Urine Mucus (Auto) (NEGATIVE) /HPF Ur Culture Indicated? Urine Glucose (NEGATIVE) mg/dL Influenza Type A Ag (NEGATIVE) Influenza Type B Ag (NEGATIVE) RSV (PCR) (Negative) SARS-CoV-2 (PCR) (NEGATIVE) Slides for Path Review 01/21/22 01/21/22 01/21/22 Range/Units 05:33 05:33 14:25 WBC 5.4 (4.0-10.5) x10^3/uL RBC 3.76 L (4.1-5.4) x10^6/uL Hgb 9.8 L (12.0-16.0) g/dL Hct 33.9 L (35-47) % MCV 90.2 (78-100) fL MCH 26.1 (26-32) pg MCHC 28.9 L (32-36) g/dL RDW 16.4 H (11.5-14.0) % Plt Count 199 D (150-450) x10^3/uL MPV 11.1 H (7.5-11.0) fL Gran % 40.4 (36.0-66.0) % Immature Gran % (Auto) 0.7 H (0.00-0.4) % Nucleat RBC Rel Count 0.0 (0.00-0.1) % Eos # (Auto) 0 (0-0.5) x10^3/uL Immature Gran # (Auto) 0.04 H (0.00-0.03) x10^3u/L Absolute Lymphs (auto) 2.75 (1.0-4.6) x10^3/uL Absolute Monos (auto) 0.44 (0.0-1.3) x10^3/uL Absolute Nucleated RBC 0.00 (0.00-0.01) x10^3u/L Lymphocytes % 50.6 H (24.0-44.0) % Monocytes % 8.1 (0.0-12.0) % Eosinophils % 0.0 (0.00-5.0) % Basophils % 0.2 (0.0-0.4) % Absolute Granulocytes 2.20 (1.4-6.9) x10^3/uL Basophils # 0.01 (0-0.4) x10^3/uL D-Dimer (0.0-0.50) ng/mL Sodium 140 142 (137-145) mmol/L Potassium 3.6 3.4 L (3.5-5.1) mmol/L Chloride 106 108 H (98-107) mmol/L Carbon Dioxide 26 27 (22-30) mmol/L Anion Gap 11.8 9.9 (5-15) MEQ/L BUN 20 H 17 (7-17) mg/dL Creatinine 1.20 H 1.14 H (0.52-1.04) mg/dL Estimated GFR 48.4 51.3 ML/MIN Glucose 85 82 (74-106) mg/dL Lactic Acid (0.4-2.0) Calcium 8.2 L 8.1 L (8.4-10.2) mg/dL Magnesium (1.6-2.3) mg/dL Total Bilirubin 0.40 (0.2-1.3) mg/dL AST 27 (14-36) U/L ALT 17 (0-35) U/L Alkaline Phosphatase 44 (38-126) U/L Troponin I (0.000-0.034) ng/mL NT-Pro-B Natriuret Pep (0-900) pg/mL Serum Total Protein 5.9 L (6.3-8.2) g/dL Albumin 3.2 L (3.5-5.0) g/dL Urinalys Dipstick Clnc Urine Color (YELLOW) Urine Appearance (CLEAR) Urine pH (5-6) Ur Specific [place] (1.005-1.025) POC Urine Protein Conf (Negative) Urine Ketones (NEGATIVE) Urine Nitrite (NEGATIVE) Urine Bilirubin (NEGATIVE) Urine Urobilinogen (0-1) mg/dL Urine Leukocytes (NEGATIVE) Urine WBC (Auto) (0-5) /HPF Urine RBC (Auto) (0-2) /HPF U Hyaline Cast (Auto) (0-2) /LPF U Epithel Cells (Auto) (FEW) /HPF Urine Bacteria (Auto) (NEGATIVE) /HPF Urine RBC (0-5) Candelario/ul Urine Mucus (Auto) (NEGATIVE) /HPF Ur Culture Indicated? Urine Glucose (NEGATIVE) mg/dL Influenza Type A Ag (NEGATIVE) Influenza Type B Ag (NEGATIVE) RSV (PCR) (Negative) SARS-CoV-2 (PCR) (NEGATIVE) Slides for Path Review YES - Radiology Impressions Radiology Exams & Impressions: Radiology Procedures Category Date Time Status CHEST 1 VIEW (PORTABLE) Stat Exams 01/20/22 16:19 Completed CHEST WITH CONTRAST [CT] Urgent Exams 01/21/22 15:24 Ordered CTA CHEST W AND/OR WO [CT] Urgent Exams 01/21/22 15:24 Stop Req PULMONARY PERF VENTILATION [NUCMED] Stat Exams 01/23/22 09:00 Ordered - Other Procedures and Tests Respiratory Therapy 01/20/22 16:38 Respiratory Therapy Assessment DAILY 01/20/22 21:03 Oxygen Nasal Cannula 2 lpm Assessment/Plan (1) Pneumonia Current Visit: Yes Status: Acute Qualifiers: Pneumonia type: due to unspecified organism Laterality: left Lung location: upper lobe of lung Qualified Code(s): J18.9 - Pneumonia, unspecified organism Assessment & Plan: On Rocephin and zithromax day #2. Adding steroid for wheezes. Code(s): J18.9 - PNEUMONIA, UNSPECIFIED ORGANISM (2) Influenza Current Visit: Yes Status: Acute Code(s): J11.1 - FLU DUE TO UNIDENTIFIED INFLUENZA VIRUS W OTH RESP MANIFEST (3) Elevated d-dimer Current Visit: Yes Status: Acute Assessment & Plan: Will give a bolus of fluid, recheck BMP in the afternoon, if able will do CT chest to r/o PE. Pt with hx DVT in leg and arm. Code(s): R79.89 - OTHER SPECIFIED ABNORMAL FINDINGS OF BLOOD CHEMISTRY (4) Anxiety Current Visit: Yes Status: Chronic Assessment & Plan: Discussed daily med for anxiety (perhaps buspar or SSRI) but she would prefer to discuss with her PCP after discharge. Code(s): F41.9 - ANXIETY DISORDER, UNSPECIFIED (5) UTI (urinary tract infection) Current Visit: No Status: Acute Qualifiers: Urinary tract infection type: acute cystitis Hematuria presence: without hematuria Qualified Code(s): N30.00 - Acute cystitis without hematuria Assessment & Plan: Culture pending - she is on rocephin day #2. Code(s): N39.0 - URINARY TRACT INFECTION, SITE NOT SPECIFIED (6) HTN (hypertension) Current Visit: Yes Status: Chronic Qualifiers: Hypertension type: primary hypertension Qualified Code(s): I10 - Essential (primary) hypertension Code(s): I10 - ESSENTIAL (PRIMARY) HYPERTENSION (7) COPD (chronic obstructive pulmonary disease) Current Visit: Yes Status: Chronic (8) Acute on chronic renal failure Current Visit: Yes Status: Chronic Qualifiers: Acute renal failure type: unspecified Chronic kidney disease stage: stage 3 (moderate) Code(s): N17.9 - ACUTE KIDNEY FAILURE, UNSPECIFIED; N18.9 - CHRONIC KIDNEY DISEASE, UNSPECIFIED (9) Chest pain Current Visit: Yes Status: Acute Qualifiers: Chest pain type: other chest pain Qualified Code(s): R07.89 - Other chest pain; R07.8 - Other chest pain Assessment & Plan: Troponins neg x 5 - DE ruled out. Pt with hx DE. Code(s): R07.9 - CHEST PAIN, UNSPECIFIED
[2022-01-21] MEDS ORDERED: Lasix 20 MG/2 ML IV ONE (17:00)
[2022-01-21 20:26] LABS: ANION GAP 23.1 MEQ/L (5-15); Calcium 8.6 mg/dL (8.4-10.2); Creatinine 1 1.22 mg/dL (0.52-1.04); EST GLOMERULAR FILTRATION RATE 47.5 ML/MIN; Potassium 4.1 mmol/L (3.5-5.1)
--- NOTE | 2022-01-21 20:57 | XRAY ---
Indication: Chest pain and short of breath. Elevated d-dimer. Multiple contiguous axial images obtained through the chest using 80 cc Isovue 370 contrast and PE protocol. Comparison: CT chest without contrast May 13, 2021. There is good opacification of the pulmonary arteries to include the lobar and segmental branches. No pulmonary embolus. Heart is not enlarged. Aorta is mildly arteriosclerotic without aneurysm/dissection. Tiny right hilar calcified nodes. No pathologic mediastinal/hilar lymphadenopathy. Again moderate size hiatal hernia with partial intrathoracic stomach. Lungs again demonstrate moderate bilateral dependent atelectasis with moderate diffuse scattered fibrosis/scarring. No suspicious pulmonary mass, infiltrate, or effusion. Bony thorax intact again with mild osteopenia and minimal degenerative changes throughout the spine and T7 benign sclerotic lesions. Limited upper abdomen again demonstrates fatty liver, left renal atrophy, and cholecystectomy. Impression: 1. Negative pulmonary embolus. No acute cardiopulmonary abnormalities. 2. Again bilateral dependent atelectasis and diffuse scattered fibrosis/scarring. 3. Again incidental moderate size hiatal hernia with partial intrathoracic stomach, fatty liver, chronic bony findings, and left renal atrophy. Comment: Preliminary interpretation made by [facility]. No critical discrepancy.
[2022-01-21] MEDS ORDERED: HUMALOG SQ PRN (21:18)
[2022-01-21] MEDS: ZOCOR 20MG PO SCH (21:32)
[2022-01-21] MEDS: Ativan 1 MG PO PRN (21:33)
[2022-01-21] MEDS ORDERED: NON-FORMULARY ITEM (Hydroxychloroquine Sulfate [Plaquenil] 200 MG Tablet) PO SCH (22:00)
[2022-01-22] MEDS: MORPHINE SULFATE 2 MG INJ IV PRN (00:18)
[2022-01-22] MEDS: Zofran 4 MG/2 ML VIAL IV PRN (00:18)
[2022-01-22] MEDS: Sodium Chloride 0.9% 1000 ML 1,000 ML IV SCH (03:29)
[2022-01-22 06:02] LABS: Absolute Neutrophil Ct (ANC) 8.79 x10^3/uL (1.4-6.9); Basophil (Absolute #) 0.01 x10^3/uL (0-0.4); Eosinophil (Absolute #) 0 x10^3/uL (0-0.5); Hematocrit 35.6 % (35-47); Hemoglobin 10.9 g/dL (12.0-16.0); Lymphocyte (Absolute #) 1.27 x10^3/uL (1.0-4.6); Lymphocytes % 12.2 % (24.0-44.0); Mean Corpuscular Hemoglobin 26.7 pg (26-32); Mean Corpuscular Hgb Concent. 30.6 g/dL (32-36); Mean Platelet Volume 11.2 fL (7.5-11.0); Monocyte (Absolute #) 0.26 x10^3/uL (0.0-1.3); Monocytes % 2.5 % (0.0-12.0); Neutrophil % 84.4 % (36.0-66.0); Platelet Count 261 x10^3/uL (150-450); Red Blood Count 4.09 x10^6/uL (4.1-5.4); Red Cell Distribution Width 16.4 % (11.5-14.0); White Blood Count 10.4 x10^3/uL (4.0-10.5)
[2022-01-22 06:26] LABS: ALBUMIN 3.8 g/dL (3.5-5.0); ALKALINE PHOSPHATASE 50 U/L (38-126); BLOOD UREA NITROGEN 13 mg/dL (7-17); CHLORIDE 104 mmol/L (98-107); Calcium 8.5 mg/dL (8.4-10.2); Carbon Dioxide 23 mmol/L (22-30); Creatinine 1 0.98 mg/dL (0.52-1.04); EST GLOMERULAR FILTRATION RATE > 60.0 ML/MIN; Glucose 162 mg/dL (74-106); Potassium 4.4 mmol/L (3.5-5.1); SGOT/AST 30 U/L (14-36); SGPT/ALT 20 U/L (0-35); SODIUM 138 mmol/L (137-145); Total Protein 6.8 g/dL (6.3-8.2)
[2022-01-22] MEDS: SYNTHROID 100 MCG PO SCH (06:36)
[2022-01-22] MEDS: Atrovent 0.5MG NEBULE IH SCH ×3 (07:00→13:59)
[2022-01-22] MEDS: Xopenex 1.25 MG/0.5 ML UD NEBULE IH SCH ×3 (07:01→13:59)
[2022-01-22] MEDS ORDERED: Ativan 1 MG PO PRN (07:21)
--- NOTE | 2022-01-22 07:58 | PCM.NOTE ---
Date and Time: 01/22/22 0753 Subjective Assessment: Pt's breathing is better, she would like to go home. However her HR has been fluctuating, up to 147 at times. - Review of Systems Constitutional: No Fever Respiratory: Cough Objective Exam General Appearance: no apparent distress, obese Neurologic Exam: alert, oriented x 3, cooperative Skin Exam: normal color, warm, dry, No rash Eye Exam: eyes nml inspection Ears, Nose, Throat Exam: moist mucous membranes Neck Exam: normal inspection Respiratory Exam: normal breath sounds, lungs clear, wheezing (faint occ expiratory wheeze), No crackles/rales, No rhonchi Cardiovascular Exam: regular rate/rhythm, normal heart sounds, No murmur Gastrointestinal/Abdomen Exam: soft, normal bowel sounds, No tenderness, No distention, No mass, No guarding, No rebound Extremity Exam: normal inspection, No pedal edema, No swelling Back Exam: normal inspection, No rash OBJECTIVE DATA Vital Signs: Vital Signs - 24 hr Temp Pulse Resp BP Pulse Ox 01/22/22 07:02 84 16 98 01/22/22 03:52 97.3 F 94 H 20 143/67 93 L 01/21/22 23:52 97.3 F 106 H 20 140/68 94 L 01/21/22 20:00 97.6 F 108 H 20 136/80 96 01/21/22 19:15 100 H 16 97 01/21/22 16:42 76 18 96 01/21/22 16:00 97.1 F 82 16 146/76 96 01/21/22 12:28 71 18 95 01/21/22 12:00 96.8 F 79 18 122/76 92 L 01/21/22 08:27 82 18 95 01/21/22 07:57 97 F 76 18 141/73 95 Pain Assessment - Last Documented Pain Intensity 2 Pain Scale Used 0-10 Pain Scale Intake and Output: Intake & Output 01/19/22 01/20/22 01/21/22 01/22/22 11:59 11:59 11:59 11:59 Intake Total 820 2670 Output Total 300 850 Balance 520 1820 Weight 92.9 kg Lab Results: Lab Results-Last 24 Hours 01/21/22 01/21/22 01/21/22 Range/Units 05:33 14:25 20:08 WBC (4.0-10.5) x10^3/uL RBC (4.1-5.4) x10^6/uL Hgb (12.0-16.0) g/dL Hct (35-47) % MCV (78-100) fL MCH (26-32) pg MCHC (32-36) g/dL RDW (11.5-14.0) % Plt Count (150-450) x10^3/uL MPV (7.5-11.0) fL Gran % (36.0-66.0) % Immature Gran % (Auto) (0.00-0.4) % Nucleat RBC Rel Count (0.00-0.1) % Eos # (Auto) (0-0.5) x10^3/uL Immature Gran # (Auto) (0.00-0.03) x10^3u/L Absolute Lymphs (auto) (1.0-4.6) x10^3/uL Absolute Monos (auto) (0.0-1.3) x10^3/uL Absolute Nucleated RBC (0.00-0.01) x10^3u/L Lymphocytes % (24.0-44.0) % Monocytes % (0.0-12.0) % Eosinophils % (0.00-5.0) % Basophils % (0.0-0.4) % Absolute Granulocytes (1.4-6.9) x10^3/uL Basophils # (0-0.4) x10^3/uL Sodium 142 142 (137-145) mmol/L Potassium 3.4 L 4.1 D (3.5-5.1) mmol/L Chloride 108 H 105 (98-107) mmol/L Carbon Dioxide 27 18 L (22-30) mmol/L Anion Gap 9.9 23.1 H (5-15) MEQ/L BUN 17 14 (7-17) mg/dL Creatinine 1.14 H 1.22 H (0.52-1.04) mg/dL Estimated GFR 51.3 47.5 ML/MIN Glucose 82 230 H (74-106) mg/dL Calcium 8.1 L 8.6 (8.4-10.2) mg/dL Total Bilirubin (0.2-1.3) mg/dL AST (14-36) U/L ALT (0-35) U/L Alkaline Phosphatase (38-126) U/L Serum Total Protein (6.3-8.2) g/dL Albumin (3.5-5.0) g/dL Slides for Path Review YES 01/22/22 01/22/22 Range/Units 05:26 05:26 WBC 10.4 (4.0-10.5) x10^3/uL RBC 4.09 L (4.1-5.4) x10^6/uL Hgb 10.9 L (12.0-16.0) g/dL Hct 35.6 (35-47) % MCV 87.0 (78-100) fL MCH 26.7 (26-32) pg MCHC 30.6 L (32-36) g/dL RDW 16.4 H (11.5-14.0) % Plt Count 261 (150-450) x10^3/uL MPV 11.2 H (7.5-11.0) fL Gran % 84.4 H (36.0-66.0) % Immature Gran % (Auto) 0.8 H (0.00-0.4) % Nucleat RBC Rel Count 0.0 (0.00-0.1) % Eos # (Auto) 0 (0-0.5) x10^3/uL Immature Gran # (Auto) 0.08 H (0.00-0.03) x10^3u/L Absolute Lymphs (auto) 1.27 (1.0-4.6) x10^3/uL Absolute Monos (auto) 0.26 (0.0-1.3) x10^3/uL Absolute Nucleated RBC 0.00 (0.00-0.01) x10^3u/L Lymphocytes % 12.2 L (24.0-44.0) % Monocytes % 2.5 (0.0-12.0) % Eosinophils % 0.0 (0.00-5.0) % Basophils % 0.1 (0.0-0.4) % Absolute Granulocytes 8.79 H (1.4-6.9) x10^3/uL Basophils # 0.01 (0-0.4) x10^3/uL Sodium 138 (137-145) mmol/L Potassium 4.4 (3.5-5.1) mmol/L Chloride 104 (98-107) mmol/L Carbon Dioxide 23 (22-30) mmol/L Anion Gap 15.0 (5-15) MEQ/L BUN 13 (7-17) mg/dL Creatinine 0.98 (0.52-1.04) mg/dL Estimated GFR > 60.0 ML/MIN Glucose 162 H (74-106) mg/dL Calcium 8.5 (8.4-10.2) mg/dL Total Bilirubin 0.50 (0.2-1.3) mg/dL AST 30 (14-36) U/L ALT 20 (0-35) U/L Alkaline Phosphatase 50 (38-126) U/L Serum Total Protein 6.8 (6.3-8.2) g/dL Albumin 3.8 (3.5-5.0) g/dL Slides for Path Review Radiology Exams: Radiology Procedures Category Date Time Status CHEST 1 VIEW (PORTABLE) Stat Exams 01/20/22 16:19 Completed CHEST WITH CONTRAST [CT] Urgent Exams 01/21/22 15:24 Completed PULMONARY PERF VENTILATION [NUCMED] Stat Exams 01/23/22 09:00 Ordered Assessment/Plan (1) Pneumonia Current Visit: Yes Status: Acute Qualifiers: Pneumonia type: due to unspecified organism Laterality: left Lung location: upper lobe of lung Qualified Code(s): J18.9 - Pneumonia, unspecified organism Assessment & Plan: much improved. On rocephin and zithromax day #3. Steroid 40mg IV q12h. Code(s): J18.9 - PNEUMONIA, UNSPECIFIED ORGANISM (2) Tachycardia Current Visit: Yes Status: Acute Assessment & Plan: Unsure what this paroxysmal tachycardia represents - RT placing monitor on pt, in the event we don't catch the tachycardia on 12-lead EKG. Pt has f/u with cardiology in 2 days, but will keep overnight to evaluate this further. Code(s): R00.0 - TACHYCARDIA, UNSPECIFIED (3) Influenza Current Visit: Yes Status: Acute Code(s): J11.1 - FLU DUE TO UNIDENTIFIED INFLUENZA VIRUS W OTH RESP MANIFEST (4) Elevated d-dimer Current Visit: Yes Status: Acute Assessment & Plan: CT chest done yesterday neg for PE - stopped lovenox therapeutic dose and will continue at 40mg SQ daily. Code(s): R79.89 - OTHER SPECIFIED ABNORMAL FINDINGS OF BLOOD CHEMISTRY (5) Anxiety Current Visit: Yes Status: Chronic Assessment & Plan: She is more anxious here in hospital - increased ativan just for her stay (to 1mg po TID prn). Started po buspirone, and she can f/u on that with her PCP. Code(s): F41.9 - ANXIETY DISORDER, UNSPECIFIED (6) UTI (urinary tract infection) Current Visit: No Status: Acute Qualifiers: Urinary tract infection type: acute cystitis Hematuria presence: without hematuria Qualified Code(s): N30.00 - Acute cystitis without hematuria Assessment & Plan: UCx still pending. Code(s): N39.0 - URINARY TRACT INFECTION, SITE NOT SPECIFIED (7) HTN (hypertension) Current Visit: Yes Status: Chronic Qualifiers: Hypertension type: primary hypertension Qualified Code(s): I10 - Essential (primary) hypertension Code(s): I10 - ESSENTIAL (PRIMARY) HYPERTENSION (8) COPD (chronic obstructive pulmonary disease) Current Visit: Yes Status: Chronic Qualifiers: Chronic bronchitis type: unspecified (9) Acute on chronic renal failure Current Visit: Yes Status: Chronic Qualifiers: Acute renal failure type: unspecified Chronic kidney disease stage: stage 3 (moderate) Assessment & Plan: renal function back to normal today Code(s): N17.9 - ACUTE KIDNEY FAILURE, UNSPECIFIED; N18.9 - CHRONIC KIDNEY DISEASE, UNSPECIFIED (10) Chest pain Current Visit: Yes Status: Resolved Qualifiers: Chest pain type: other chest pain Qualified Code(s): R07.89 - Other chest pain; R07.8 - Other chest pain Code(s): R07.9 - CHEST PAIN, UNSPECIFIED
[2022-01-22] MEDS: SYNTHROID 75 MCG PO SCH (08:04)
[2022-01-22] MEDS: ECOTRIN 81 MG PO SCH (08:04)
[2022-01-22] MEDS: solu-MEDROL 40 MG, Sterile H2O 10 ml 1 ML IV SCH ×2 (08:05)
[2022-01-22] MEDS: ROCEPHIN 2 Gm-D5w 50ML BAG** 2 G/50 ML IVPB IV SCH (08:05)
[2022-01-22] MEDS: OSELTAMIVIR PHOSPHATE 30 MG CAP PO SCH (08:05)
[2022-01-22] MEDS: Zithromax 500 MG/ 250 ML NaCl Premix 500 MG/250 ML IVPB IV SCH (08:06)
[2022-01-22] MEDS ORDERED: Toprol Xl 50 MG PO SCH (10:00)
[2022-01-22] MEDS ORDERED: NON-FORMULARY ITEM (Omeprazole [Omeprazole] 40 MG Capsule.Dr) PO SCH (10:00)
[2022-01-22] MEDS ORDERED: ENOXAPARIN SODIUM SQ SCH (10:00)
[2022-01-22] MEDS ORDERED: BUSPAR 5 MG PO SCH (10:00)
[2022-01-22] MEDS ORDERED: Protonix 40MG Tablet PO SCH (10:00)
[2022-01-22] MEDS: Ativan 1 MG PO PRN (13:18)
[2022-01-22] MEDS ORDERED: Lasix 20 MG/2 ML IV ONE (17:00)
--- NOTE | 2022-01-22 17:30 | PCM.DS ---
Discharge Summary Date of Admission: 01/20/22 20:59 Admitting Physician: COLETTE GALEANA Primary Care Provider: PEDRO ARTHUR Allergies Allergies No Known Drug Allergies Allergy (Verified 01/20/22 16:12) Hospital Summary - Hospital Course Hospital Course: is a 61 year old female pt of Dr. Nerissa Arthur with HTN, COPD, anxiety, CAD with hx WA and Hx DVT who was admitted through ER with JOSHUA pneumonia and flu A (dx 01/18/22). CXR showed minimal JOSHUA infiltrates. She was started on IV rocephin and zithromax. The next day I added IV steroid, 40mg q12h, for wheezing. Pt was thought to have UTI, and in fact her culture is positive for gram negative rods. This morning she was feeling great with respect to breathing and ready to discharge to home. She had some elevated HR so she was kept longer today to evaluate that. She was hooked up to a holter-type monitor and although she has brief episodes of tachycardia into the 130s with activity, it appears that she stays in sinus rhythm. Her metoprolol was increased from 25mg po BID to 50mg po BID today. Pt has a f/u appt with her stock drier tender in 2 days. Pt has completed 4d of tamiflu and will be sent home on 1 more day. She will also be sent home on cefdinir 300mg po BID x 4d (to complete 7 d) for both the pneumonia and the UTI. Pt will take lactobacillus as well. A 7-day taper of steroid will be given (prednisone, 60mg po daily x 3d then 20 mg daily x 4d then stop). Pt had an elevated d-dimer in the ER. Initially her renal function was decreased (eGFR 41.9) so CT chest with contrast could not be done to r/o PE. She was put on lovenox at 1mg/kg q12h SQ. The next morning the eGFR was 48.4. More fluids were given, then her renal function improved to eGFR>[address] chest was done, negative for PE. The renal function was again checked this morning and egFR was > 60. Pt is quite anxious, and discussed that her mom, her , and her daughter all fairly recently. She takes ativan qhs but buspirone 5mg po BID was added here to address this chronically. - Vitals & Intake/Output Vital Signs: Vital Signs Temperature 97.5 F 01/22/22 12:00 Pulse Rate 102 H 01/22/22 14:00 Respiratory Rate 18 01/22/22 14:00 Blood Pressure 156/75 01/22/22 12:00 O2 Sat by Pulse Oximetry 94 L 01/22/22 14:00 Intake & Output: Intake & Output 01/20/22 01/21/22 01/22/22 01/23/22 11:59 11:59 11:59 11:59 Intake Total 820 3390 Output Total 300 850 Balance 520 2540 Weight 92.9 kg 92.9 kg - Lab Result Diagrams: 01/22/22 05:26 01/22/22 05:26 Lab Results-Last 24 Hrs: Lab Results-Last 24 Hours 01/21/22 01/22/22 01/22/22 Range/Units 20:08 05:26 05:26 WBC 10.4 (4.0-10.5) x10^3/uL RBC 4.09 L (4.1-5.4) x10^6/uL Hgb 10.9 L (12.0-16.0) g/dL Hct 35.6 (35-47) % MCV 87.0 (78-100) fL MCH 26.7 (26-32) pg MCHC 30.6 L (32-36) g/dL RDW 16.4 H (11.5-14.0) % Plt Count 261 (150-450) x10^3/uL MPV 11.2 H (7.5-11.0) fL Gran % 84.4 H (36.0-66.0) % Immature Gran % (Auto) 0.8 H (0.00-0.4) % Nucleat RBC Rel Count 0.0 (0.00-0.1) % Eos # (Auto) 0 (0-0.5) x10^3/uL Immature Gran # (Auto) 0.08 H (0.00-0.03) x10^3u/L Absolute Lymphs (auto) 1.27 (1.0-4.6) x10^3/uL Absolute Monos (auto) 0.26 (0.0-1.3) x10^3/uL Absolute Nucleated RBC 0.00 (0.00-0.01) x10^3u/L Lymphocytes % 12.2 L (24.0-44.0) % Monocytes % 2.5 (0.0-12.0) % Eosinophils % 0.0 (0.00-5.0) % Basophils % 0.1 (0.0-0.4) % Absolute Granulocytes 8.79 H (1.4-6.9) x10^3/uL Basophils # 0.01 (0-0.4) x10^3/uL Sodium 142 138 (137-145) mmol/L Potassium 4.1 D 4.4 (3.5-5.1) mmol/L Chloride 105 104 (98-107) mmol/L Carbon Dioxide 18 L 23 (22-30) mmol/L Anion Gap 23.1 H 15.0 (5-15) MEQ/L BUN 14 13 (7-17) mg/dL Creatinine 1.22 H 0.98 (0.52-1.04) mg/dL Estimated GFR 47.5 > 60.0 ML/MIN Glucose 230 H 162 H (74-106) mg/dL POC Glucometer (74 to 106) mg/dL Hemoglobin A1c (4.5-6.0) % Calcium 8.6 8.5 (8.4-10.2) mg/dL Total Bilirubin 0.50 (0.2-1.3) mg/dL AST 30 (14-36) U/L ALT 20 (0-35) U/L Alkaline Phosphatase 50 (38-126) U/L Serum Total Protein 6.8 (6.3-8.2) g/dL Albumin 3.8 (3.5-5.0) g/dL 01/22/22 01/22/22 01/22/22 Range/Units 05:26 12:10 16:51 WBC (4.0-10.5) x10^3/uL RBC (4.1-5.4) x10^6/uL Hgb (12.0-16.0) g/dL Hct (35-47) % MCV (78-100) fL MCH (26-32) pg MCHC (32-36) g/dL RDW (11.5-14.0) % Plt Count (150-450) x10^3/uL MPV (7.5-11.0) fL Gran % (36.0-66.0) % Immature Gran % (Auto) (0.00-0.4) % Nucleat RBC Rel Count (0.00-0.1) % Eos # (Auto) (0-0.5) x10^3/uL Immature Gran # (Auto) (0.00-0.03) x10^3u/L Absolute Lymphs (auto) (1.0-4.6) x10^3/uL Absolute Monos (auto) (0.0-1.3) x10^3/uL Absolute Nucleated RBC (0.00-0.01) x10^3u/L Lymphocytes % (24.0-44.0) % Monocytes % (0.0-12.0) % Eosinophils % (0.00-5.0) % Basophils % (0.0-0.4) % Absolute Granulocytes (1.4-6.9) x10^3/uL Basophils # (0-0.4) x10^3/uL Sodium (137-145) mmol/L Potassium (3.5-5.1) mmol/L Chloride (98-107) mmol/L Carbon Dioxide (22-30) mmol/L Anion Gap (5-15) MEQ/L BUN (7-17) mg/dL Creatinine (0.52-1.04) mg/dL Estimated GFR ML/MIN Glucose (74-106) mg/dL POC Glucometer 119 H 128 H (74 to 106) mg/dL Hemoglobin A1c 5.65 (4.5-6.0) % Calcium (8.4-10.2) mg/dL Total Bilirubin (0.2-1.3) mg/dL AST (14-36) U/L ALT (0-35) U/L Alkaline Phosphatase (38-126) U/L Serum Total Protein (6.3-8.2) g/dL Albumin (3.5-5.0) g/dL Micro Results-Entire Visit: Microbiology 01/20/22 16:38 Blood Culture - Preliminary Blood NO GROWTH TO DATE 01/20/22 16:35 Blood Culture - Preliminary Blood NO GROWTH TO DATE 01/20/22 20:13 Urine Culture - Preliminary Clean Catch Midstream GRAM POSITIVE ID AND SENSITIVITY PENDING Accuchecks Date 01/21/22 Time 20:00 - Radiology Exams Ordered Rad Exams-Entire Visit: Radiology Procedures Category Date Time Status CHEST WITH CONTRAST [CT] Urgent Exams 01/21/22 15:24 Completed PULMONARY PERF VENTILATION [NUCMED] Stat Exams 01/23/22 09:00 Ordered - Procedures and Test Procedures and Tests throughout Hospitalization: Therapy Orders & Screens 01/20/22 16:38 Respiratory Therapy Assessment DAILY Comment: 01/20/22 21:03 Oxygen Nasal Cannula 2 lpm Comment: 01/22/22 06:28 EKG ROUTINE Comment: Diagnosis: Pneumonia Discharge Exam General Appearance: no apparent distress, alert Neurologic Exam: oriented x 3, cooperative Eye Exam: eyes nml inspection Ears, Nose, Throat Exam: moist mucous membranes Neck Exam: normal inspection Respiratory Exam: normal breath sounds, wheezing (faint occ expiratory wheeze), No crackles/rales, No rhonchi Cardiovascular Exam: regular rate/rhythm, normal heart sounds, No murmur Gastrointestinal/Abdomen Exam: soft, normal bowel sounds, No tenderness, No distention, No mass, No guarding, No rebound Back Exam: normal inspection, No rash Extremity Exam: normal inspection, No pedal edema, No swelling Skin Exam: normal color, warm, dry, No rash Final Diagnosis/Problem List - Final Discharge Diagnosis/Problem (1) Pneumonia Current Visit: Yes Status: Acute Assessment & Plan: Improved. Breathing is great, not on O2. Home on cefdinir 300mg 1 po BID x 4d, steroid taper, and lactobacillus. Will not be able to send home on cough syrup with codeine due to recent T#3 rx per [facility]. Code(s): J18.9 - PNEUMONIA, UNSPECIFIED ORGANISM (2) Tachycardia Current Visit: Yes Status: Acute Assessment & Plan: periodic. home on increased dose of metoprolol, 50mg po BID. F/u with cardiology in 2d. If having palpitations, chest pain, or other worrisome symtpoms, needs to return to the ER. Code(s): R00.0 - TACHYCARDIA, UNSPECIFIED (3) Influenza Current Visit: Yes Status: Acute Assessment & Plan: Flu A. Home on 1 more day of tamiflu to finish 5d. Code(s): J11.1 - FLU DUE TO UNIDENTIFIED INFLUENZA VIRUS W OTH RESP MANIFEST (4) UTI (urinary tract infection) Current Visit: No Status: Acute Assessment & Plan: Has been on rocephin. Gram (-) ID and sensitivity pending. Home on cefdinir to finish 7d total. Code(s): N39.0 - URINARY TRACT INFECTION, SITE NOT SPECIFIED (5) Anxiety Current Visit: Yes Status: Chronic Assessment & Plan: add buspar 5mg po BID. lorazepam 1mg at night prn. Code(s): F41.9 - ANXIETY DISORDER, UNSPECIFIED (6) Elevated d-dimer Current Visit: Yes Status: Ruled-out Assessment & Plan: CT chest with contrast neg for PE Code(s): R79.89 - OTHER SPECIFIED ABNORMAL FINDINGS OF BLOOD CHEMISTRY (7) HTN (hypertension) Current Visit: Yes Status: Chronic Code(s): I10 - ESSENTIAL (PRIMARY) HYPERTENSION (8) COPD (chronic obstructive pulmonary disease) Current Visit: Yes Status: Chronic (9) Acute on chronic renal failure Current Visit: Yes Status: Resolved Assessment & Plan: eGFR returned to normal. Should recheck again in 1 mo. Code(s): N17.9 - ACUTE KIDNEY FAILURE, UNSPECIFIED; N18.9 - CHRONIC KIDNEY DISEASE, UNSPECIFIED (10) Chest pain Current Visit: Yes Status: Resolved Code(s): R07.9 - CHEST PAIN, UNSPECIFIED (11) History of DVT (deep vein thrombosis) Current Visit: Yes Status: Chronic Assessment & Plan: Pt did not come in on any anticoagulant. I believe when we discussed, they were thought to be provoked by a discreet causal agent. She will need to make sure she discusses with Dr. Suggs at her upcoming appt. Code(s): Z86.718 - PERSONAL HISTORY OF OTHER VENOUS THROMBOSIS AND EMBOLISM - Discharge Disposition: Home, Self-Care Condition: Good Prescriptions: New Lactobacillus Acidophilus [Acidophilus TABLET] 1 tab PO TID 5 Days #15 tablet Buspirone HCl 5 mg [Buspar 5 mg] 5 mg PO BID 30 Days #60 tablet Cefdinir 300 mg PO BID 4 Days #8 cap Prednisone 20 mg [Deltasone 20 mg] 20 mg PO DAILY #17 tablet Oseltamivir Phosphate [Oseltamivir Phosphate 30 mg Cap] 30 mg PO BID #2 cap Metoprolol Succinate 50 mg [Toprol Xl 50 MG] 50 mg PO BID 30 Days #60 tab Acetaminophen 325 mg [Tylenol 325 mg] 650 mg PO Q4H PRN PRN tablet PRN Reason: Pain And/Or Fever Levalbuterol HCl 1.25 MG/0.5M* [Xopenex 1.25 MG/0.5 ML UD NEBULE] 1.25 mg IH Q4HPRN PRN #30 unit PRN Reason: Shortness Of Breath/Wheezing Continue Lorazepam 1 mg [Ativan 1 MG] 1 mg PO HS PRN PRN Reason: Anxiety Albuterol/Ipratropium Mdi [Combivent Inhaler] 2 inh IH QID PRN PRN PRN Reason: Shortness Of Breath/Wheezing Aspirin EC 81 mg [Ecotrin 81 mg] 81 mg PO DAILY Ergocalciferol (Vitamin D2) [Vitamin D] 50,000 unit PO WEEKLY Hydroxychloroquine Sulfate [Plaquenil] 200 mg PO BID Simvastatin 1 ea PO HS Omeprazole 40 mg PO DAILY Levothyroxine Sodium [Euthyrox] 175 mcg PO DAILY Prednisone 20 mg [Deltasone 20 mg] 20 mg PO DAILY Discontinued Metoprolol Succinate 50 mg [Toprol Xl 50 MG] 25 mg PO BID Follow up with: PEDRO ARTHUR [Primary Care Provider] - VITOR DUARTE [Family Provider] -
[2022-01-22 17:50] VITALS: BP 134/72; PULSE 97; O2SAT 93
== END 2022-01-22 18:47 | disposition home or self-care (01) ==
LOC: ED 16:10 → MED SURG 20:59
PROVIDERS: ADMIT Family Medicine; ATTEND Family Medicine
DX: J18.9 Pneumonia, unspecified organism (principal); R00.0 Tachycardia, unspecified; J11.1 Influenza due to unidentified influenza virus with other respiratory manifestations; N39.0 Urinary tract infection, site not specified; F41.9 Anxiety disorder, unspecified; R79.89 Other specified abnormal findings of blood chemistry; I10 Essential (primary) hypertension; I25.10 Atherosclerotic heart disease of native coronary artery without angina pectoris; J44.9 Chronic obstructive pulmonary disease, unspecified; N17.9 Acute kidney failure, unspecified; N18.9 Chronic kidney disease, unspecified; I25.2 Old myocardial infarction; Z86.718 Personal history of other venous thrombosis and embolism; Z79.899 Other long term (current) drug therapy; Z20.828 Contact with and (suspected) exposure to other viral communicable diseases
CPT/HCPCS: 0241U; 36000; 36415; 71045; 71260; 80048; 80053; 81015; 82947; 83036; 83605; 83735; 83880; 84484; 85025; 85379; 87040; 87086; 93005; 93041; 94640; 94760; 96365; 96372; 99284; 87077; 87186; 93268; 96367; J0456; J0696; J1650; J1940; J2270; J2405; J2920; J7609; A9270-GY; G0378

== ENCOUNTER 2022-02-11 19:18 | Emergency (ER) | payer MEDICARE ==
[2022-02-11] MEDS ORDERED: Ativan 2 MG/1 ML VIAL IM ONE (20:05)
[2022-02-11] MEDS ORDERED: Ativan 2 MG/1 ML VIAL ONE (20:07)
--- NOTE | 2022-02-11 20:11 | ERPHSYRPT ---
- History of Present Illness Time Seen by Provider: 02/11/22 20:06 Source: patient Exam Limitations: no limitations Patient Subjective Stated Complaint: pt states "I have been having these panic attacks since the last time I was here." Triage Nursing Assessment: pt ambulated into the er; pt is axo x4; c/o anxiety; pt is tearful and anxious; pupils 3 mm and PERRL; clear lung soudnds; clear heart tones; vitals wnl Physician History: Patient is 61-year-old female came to the emergency room with complaining of panic attack and anxiety. Patient has significant past medical history of rheumatoid arthritis coronary artery disease hypertension COPD history of smoking. Patient has probable ex poser history of coronavirus 3 4 months ago. Since then patient has off-and-on shortness of breath panic attack. Patient was in the hospital on January 21 and at that time patient antigen test for coronavirus was positive but PCR test was negative. Patient was also seen by show host or hostess and rheumatoid arthritis factor was strongly positive. Since then patient has a worsening panic attacks. Recently patient has loss her and one of her child and due to that also patient has been under lots of emotional stress. She denies any fever chills nausea vomiting chest pain or shortness of breath today. Timing/Duration: today Severity: moderate Associated Symptoms: denies symptoms Allergies/Adverse Reactions: No Known Drug Allergies Allergy (Verified 01/20/22 16:12) Home Medications: Albuterol/Ipratropium Mdi [Combivent Inhaler] 2 inh IH QID PRN PRN 04/24/13 [History] Aspirin EC 81 mg [Ecotrin 81 mg] 81 mg PO DAILY 04/24/13 [History] Ergocalciferol (Vitamin D2) [Vitamin D] 50,000 unit PO WEEKLY 05/23/17 [History] Hydroxychloroquine Sulfate [Plaquenil] 200 mg PO BID 06/03/18 [History] Simvastatin 1 ea PO HS 09/13/20 [History] Levothyroxine Sodium [Euthyrox] 175 mcg PO DAILY 12/21/20 [History] Omeprazole 40 mg PO DAILY 12/21/20 [History] Prednisone 20 mg [Deltasone 20 mg] 20 mg PO DAILY 01/20/22 [History] Hx Tetanus, Diphtheria Vaccination/Date Given: Yes Hx Influenza Vaccination/Date Given: Yes Hx Pneumococcal Vaccination/Date Given: No Travel Risk - International Travel Have you traveled outside of the country in past 3 weeks: No - Coronavirus Screening Are you exhibiting any of the following symptoms?: No Close contact with a COVID-19 positive Pt in past 14-21 Days: No - Vaccine Status Have you recieved a Covid-19 vaccination: Yes Loom [employer] Checker: Moderna - Vaccination Dates Date of 2cond Vaccination (if applicable): unknown - Review of Systems Constitutional: No Fever, No Chills Eyes: No Symptoms Ears, Nose, & Throat: No Symptoms Respiratory: No Cough, No Dyspnea Cardiac: No Chest Pain, No Edema, No Syncope Abdominal/Gastrointestinal: No Abdominal Pain, No Nausea, No Vomiting, No Diarrhea Genitourinary Symptoms: No Dysuria Musculoskeletal: No Back Pain, No Neck Pain Skin: No Rash Neurological: No Dizziness, No Focal Weakness, No Sensory Changes Psychological: No Symptoms, Anxiety, Emotional Lability Endocrine: No Symptoms All Other Systems: Reviewed and Negative - Past Medical History Pertinent Past Medical History: Yes Neurological History: No Pertinent History ENT History: No Pertinent History Cardiac History: Coronary Artery Disease, High Cholesterol, Hypertension, M yocardial Infarction ([place]) Respiratory History: No Pertinent History Endocrine Medical History: Hypothyroidism, Other Musculoskeletal History: Fibromyalgia, Rheumatoid Arthritis, Other GI Medical History: GERD, Gallbladder Disease History: Renal Disease Psycho-Social History: Anxiety, Depression Female Reproductive Disorders: Other Other Medical History: PATIENT HAD [place] 2010 AND HAD ONE STENT PLACED. AT THAT TIME FOUND OUT SHE ONE KIDNEY HAD DETERIORATED AND OTHER KIDNEY FUNCTIONING AT LESS THAN 50%. ALSO HAS SYSTEMIC LUPUS. 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 Hx of lupus - Past Surgical History Past Surgical History: Yes Neuro Surgical History: No Pertinent History Cardiac: Cardiac Catheterization, Cardiac Stent Respiratory: No Pertinent History Gastrointestinal: Other Genitourinary: No Pertinent History Musculoskeletal: Other Female Surgical History: Hysterectomy, Tubal Ligation Other Surgical History: colonoscopy, egd,ANSON x two,MARIVEL tubal, tumor removed from back of head. tendon removed from right hand. - Social History Smoking Status: Never smoker How long have you smoked: 30 Exposure to second hand smoke: No Drug Use: none Patient Lives Alone: No - Nursing Vital Signs Nursing Vital Signs: Initial Vital Signs Temperature 96.4 F 06/25/22 19:24 Pulse Rate 98 H 02/11/22 19:24 Respiratory Rate 20 02/11/22 19:24 Blood Pressure 127/82 02/11/22 19:24 O2 Sat by Pulse Oximetry 98 02/11/22 19:24 Pain Scale Pain Intensity 0 - Physical Exam General Appearance: no apparent distress, alert Eye Exam: PERRL/EOMI, eyes nml inspection Ears, Nose, Throat Exam: normal ENT inspection, TMs normal, pharynx normal, moist mucous membranes Neck Exam: normal inspection, non-tender, supple, full range of motion Respiratory Exam: normal breath sounds, lungs clear, No respiratory distress Cardiovascular Exam: regular rate/rhythm, normal heart sounds, normal peripheral pulses Gastrointestinal/Abdomen Exam: soft, normal bowel sounds, No tenderness, No mass Back Exam: normal inspection, normal range of motion, No CVA tenderness, No vertebral tenderness Extremity Exam: normal inspection, normal range of motion, pelvis stable Neurologic Exam: alert, oriented x 3, cooperative, normal mood/affect, nml cerebellar function, nml station & gait, sensation nml, No motor deficits Skin Exam: normal color, warm, dry, No rash Lymphatic Exam: No adenopathy SpO2: 98 - Course Nursing assessment & vital signs reviewed: Yes Ordered Tests: Medication Summary Generic Name Dose Route Start Last Admin Trade Name Jessica PRN Reason Stop Dose Admin Lorazepam 2 mg 02/11/22 20:05 Lorazepam 2 Mg/1 Ml 2 Mg Vial IM 02/11/22 20:06 STAT ONE - Progress Progress: improved Progress Note: 02/11/22 20:08 I reviewed patient's all labs which were done in last 30 days including rheumatoid factor and CT chest. I discussed all the findings with patient and her sister who are also present. Patient is already taking lorazepam 1 mg at night and recently it has increased to 1.5 mg at night but without any significant help. Patient is also on Lexapro either 5 or 10 mg daily but patient only took 1 dose and she did not feel right so she stopped taking it. I explained the patient that she should start on Lexapro 10 mg daily as well as she should increase her lorazepam to 1 mg twice a day for at least next 5 to 7 days. She should keep her appointment with the website/blog editor as well as with the show host or hostess. I advised her that lorazepam will help her on a temporary basis but she needs to stay on Lexapro for at least 3 to 4 weeks to see the effects. All verbalized instruction understood. 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 Please take your Lexapro 10 mg around 11:00 in the morning. Stay on the rest of the medicine same. Follow-up with your primary care physician in next 2 to 3 days for further management of your anxiety. Discharge/Care Plan HERBERTSHAYE BURDEN was seen on 02/11/22 in the Emergency Room. The patient was counseled regarding Diagnosis,Lab results, Imaging studies, need for follow up and when to return to the Emergency Room. Prescriptions given: Discharge Note I have spoken with the patient and/or caregivers. I have explained the patient's condition, diagnosis and treatment plan based on the information available to me at this time. I have answered the patient's and/or caregiver's questions and addressed any concerns. The patient and/or caregivers have as good understanding of the patient's diagnosis, condition and treatment plan as can be expected at this point. The vital signs have been stable. The patient's condition is stable and appropriate for discharge from the emergency department. The patient will pursue further outpatient evaluation with the primary care physician or other designated or consulting physician as outlined in the discharge instructions. The patient and/or caregivers are agreeable to this plan of care and follow-up instructions have been explained in detail. The patient and/or caregivers have received these instruction. The patient/and or caregivers are aware that any significant change in condition or worsening of symptoms should prompt an immediate return to this or the closest emergency department or call 911. Prescriptions: Lorazepam 1 mg [Ativan 1 MG] 1 mg PO BID #20 tablet
[2022-02-11 20:18] VITALS: BP 116/84; PULSE 89; O2SAT 99
== END 2022-02-11 20:25 | disposition home or self-care (01) ==
LOC: ED 19:18
DX: F41.9 Anxiety disorder, unspecified (principal); U09.9 Post COVID-19 condition, unspecified; F32.A Depression, unspecified; Z63.4 Disappearance and death of family member; E78.5 Hyperlipidemia, unspecified; I10 Essential (primary) hypertension; Z79.52 Long term (current) use of systemic steroids; Z79.899 Other long term (current) drug therapy
CPT/HCPCS: 96372; 99283; J2060

== ENCOUNTER 2022-02-15 12:44 | Day surgery (SDC) | payer MEDICARE ==
[2013-05-08 13:53] VITALS: BP 115/71
[2022-02-15] MEDS ORDERED: Depo-Medrol 40 MG/ML IM ONE (12:45)
[2022-02-15] MEDS ORDERED: XYLOCAINE-MPF 1% 5ML SDV IJ ONE (12:45)
[2022-02-15] MEDS ORDERED: Marcaine Mpf 0.5% Vial 30 Ml IJ ONE (12:45)
[2022-02-15] MEDS ORDERED: Sodium Chloride 0.9(Preservative Free) 10 ML IJ ONE (12:45)
[2022-02-15] MEDS ORDERED: DIPRIVAN 200 MG/20 ML IV ONE ×2 (14:02→14:16)
[2022-02-15] MEDS ORDERED: Lactated Ringers 1,000 ML IV ONE (14:29)
--- NOTE | 2022-02-16 18:31 | XRAY ---
39 seconds of fluoroscopy was used in surgery for bilateral hips intra-articular and greater trochanteric bursa injections.
--- NOTE | 2022-02-16 18:32 | XRAY ---
14 seconds of fluoroscopy was used in surgery for a lumbar ANSON.
--- NOTE | 2022-02-17 21:20 | XRAY ---
Indication: Bilateral hip intra-articular injections and bilateral greater trochanteric bursa injections. Intraoperative fluoroscopy provided for 39 seconds. 4 spot image(s) submitted for interpetation demonstrate needle tips projecting lateral to the right and left femoral neck and the lateral margin of the right and left greater trochanter. Small amount of contrast injected for needle tip placement. Correlate with intraoperative findings/report.
--- NOTE | 2022-02-17 21:24 | XRAY ---
Indication: Midline Lumbar ANSON. Intraoperative fluoroscopy provided for 14 seconds. 2 digital spot images (PA and lateral) submitted for interpretation demonstrates midline posterior needle tip projecting over L5-S1. Small amounts of contrast injected for needle tip placement. Incidentally, orthopedic hardware for L4-L5 posterior surgical fusion is seen. Correlate with intraoperative findings/report.
== END 2022-02-15 14:33 | disposition home or self-care (01) ==
LOC: SDC-PAIN 12:44
PROVIDERS: ATTEND Psychiatry & Neurology Pain Medicine
DX: M54.16 Radiculopathy, lumbar region (principal); M16.0 Bilateral primary osteoarthritis of hip; M70.62 Trochanteric bursitis, left hip; M70.61 Trochanteric bursitis, right hip; Z79.899 Other long term (current) drug therapy
CPT/HCPCS: 20610; 62323; 72100; 73522; 77002; 77003; J1030; J2704; Q9966

== ENCOUNTER 2022-03-01 08:39 | Day surgery (SDC) | payer MEDICARE ==
[2013-05-08 13:53] VITALS: BP 115/71
[2022-03-01] MEDS ORDERED: Decadron 4 MG INJ IV ONE (08:40)
[2022-03-01] MEDS ORDERED: Depo-Medrol 40 MG/ML IM ONE (08:40)
[2022-03-01] MEDS ORDERED: Marcaine Mpf 0.5% Vial 30 Ml IJ ONE (08:40)
[2022-03-01] MEDS ORDERED: XYLOCAINE-MPF 1% 5ML SDV IJ ONE (08:40)
[2022-03-01] MEDS ORDERED: DIPRIVAN 200 MG/20 ML IV ONE (10:21)
[2022-03-01] MEDS ORDERED: Lactated Ringers 1,000 ML IV ONE (10:23)
== END 2022-03-01 10:43 | disposition home or self-care (01) ==
LOC: SDC-PAIN 08:39
PROVIDERS: ATTEND Psychiatry & Neurology Pain Medicine
DX: M46.1 Sacroiliitis, not elsewhere classified (principal); M79.18 Myalgia, other site; Z79.899 Other long term (current) drug therapy
CPT/HCPCS: 20552; 27096; 72170; 77002; G0260; J1030; J1100; J2704; Q9966

== ENCOUNTER 2022-03-15 10:29 | Day surgery (SDC) | payer MEDICARE ==
[2013-05-08 13:53] VITALS: BP 115/71
[2022-03-15] MEDS ORDERED: Sodium Chloride 0.9(Preservative Free) 10 ML IJ ONE (10:30)
[2022-03-15] MEDS ORDERED: Depo-Medrol 40 MG/ML IM ONE (10:30)
[2022-03-15] MEDS ORDERED: Lactated Ringers 1,000 ML IV ONE (12:04)
[2022-03-15] MEDS ORDERED: DIPRIVAN 200 MG/20 ML IV ONE (12:34)
[2022-03-15] MEDS ORDERED: MORPHINE SULFATE 2 MG INJ ONE (12:49)
--- NOTE | 2022-03-15 13:16 | XRAY ---
Indication: Right L4-S1 transforaminal ANSON. Intraoperative fluoroscopy provided for 43 seconds. 5 digital spot images submitted for interpretation demonstrates posterior needle tips projecting over the expected right L4 and L5 nerve roots. Small amount of contrast injected for needle tip placement. Correlate with intraoperative findings/report. Incidental bilateral L4-L5 posterior fusion hardware.
--- NOTE | 2022-03-15 13:28 | XRAY ---
43 seconds of fluoroscopy was used in surgery for a right L4-S1 transforaminal ANSON.
== END 2022-03-15 13:05 | disposition home or self-care (01) ==
LOC: SDC-PAIN 10:29
PROVIDERS: ATTEND Psychiatry & Neurology Pain Medicine
DX: M54.16 Radiculopathy, lumbar region (principal); Z79.899 Other long term (current) drug therapy
CPT/HCPCS: 64483; 64484; 72100; 77003; J1030; J2270; J2704; Q9966

== ENCOUNTER 2022-04-05 08:11 | Day surgery (SDC) | payer MEDICARE ==
[2013-05-08 13:53] VITALS: BP 115/71
[2022-04-05] MEDS ORDERED: Marcaine Mpf 0.5% Vial 30 Ml IJ ONE (08:12)
[2022-04-05] MEDS ORDERED: Depo-Medrol 40 MG/ML IM ONE (08:12)
[2022-04-05] MEDS ORDERED: DIPRIVAN 200 MG/20 ML IV ONE (09:17)
[2022-04-05] MEDS ORDERED: Lactated Ringers 1,000 ML IV ONE (10:16)
--- NOTE | 2022-04-05 14:02 | XRAY ---
Indication: Right greater trochanter bursa and right SI joint injections. Intraoperative fluoroscopy provided for 15 seconds. 4 digital spot image obtained prone submitted for interpretation demonstrates posterior needle tip projecting over the inferior right SI joint. Second needle tip lateral to right greater trochanter with small amount of contrast injected for needle tip placement. Correlate with intraoperative findings/report.
--- NOTE | 2022-04-06 09:20 | XRAY ---
15 seconds fluoroscopy time in surgery for injections of the right greater trochanteric bursa and right SI joint.
== END 2022-04-05 09:35 | disposition home or self-care (01) ==
LOC: SDC-PAIN 08:11
PROVIDERS: ATTEND Psychiatry & Neurology Pain Medicine
DX: M46.1 Sacroiliitis, not elsewhere classified (principal); M70.61 Trochanteric bursitis, right hip; Z79.899 Other long term (current) drug therapy
CPT/HCPCS: 20610; 27096; 73501; 77002; G0260; J1030; J2704; Q9967

== ENCOUNTER 2022-04-26 11:44 | Day surgery (SDC) | payer MEDICARE ==
[2013-05-08 13:53] VITALS: BP 115/71
[2022-04-26] MEDS ORDERED: Depo-Medrol 40 MG/ML IM ONE (11:45)
[2022-04-26] MEDS ORDERED: BUPIVACAINE 0.5% VIAL IJ ONE (11:45)
[2022-04-26] MEDS ORDERED: Xylocaine-Mpf 2% 5 Ml Vial ONE (13:25)
[2022-04-26] MEDS ORDERED: Lactated Ringers 1,000 ML IV ONE (13:59)
--- NOTE | 2022-04-26 14:38 | XRAY ---
Indication: Right SI joint and right hip injection. Intraoperative fluoroscopy provided for 39 seconds. 4 digital spot image obtained prone submitted for interpretation demonstrates posterior needle tip projecting over the right SI joint. Second needle tip lateral to right femur neck with small amount of contrast injected for needle tip placement. Correlate with intraoperative findings/report.
--- NOTE | 2022-04-26 14:56 | XRAY ---
39 seconds of fluoroscopy was used in surgery for a right SI joint injection and a right hip intra-articular injection.
[2022-04-26] MEDS ORDERED: DIPRIVAN 200 MG/20 ML IV ONE (15:54)
== END 2022-04-26 13:48 | disposition home or self-care (01) ==
LOC: SDC-PAIN 11:44
PROVIDERS: ATTEND Psychiatry & Neurology Pain Medicine
DX: M46.1 Sacroiliitis, not elsewhere classified (principal); M16.11 Unilateral primary osteoarthritis, right hip; Z79.899 Other long term (current) drug therapy
CPT/HCPCS: 01992; 20610; 27096; 73501; 77002; G0260; J1030; J2704; Q9966

== ENCOUNTER 2022-06-25 15:45 | Emergency (ER) | payer MEDICARE ==
[2022-06-25] MEDS ORDERED: TORAdol 30 mg Injection IM ONE (16:19)
[2022-06-25] MEDS ORDERED: BACIGUENT PACKET TP ONE (16:26)
--- NOTE | 2022-06-25 16:26 | ERPHSYRPT ---
- History of Present Illness Time Seen by Provider: 06/25/22 16:23 Source: patient Exam Limitations: no limitations Patient Subjective Stated Complaint: C/O pain to left posterior forearm following a fall at home this morning. Triage Nursing Assessment: Patient came back to ED with left arm wrapped. Dressing removed. 2 skin tears noted. Distal skin tear measures 6cm X 5cm and proximal skin tear measures 1.5cm X 1.5cm. Able to move left arm WNL. Radial pulse present. Physician History: C/O pain to left posterior forearm following a fall at home this morning. 2 skin tears noted. Distal skin tear measures 6cm X 5cm and proximal skin tear measures 1.5cm X 1.5cm. Able to move left arm Occurred: this morning Reason for Fall: tripped, fell from standing pos Injuries/Pain Location: upper extremity (left forearm) Loss of Consciousness: no loss of consciousness Allergies/Adverse Reactions: No Known Drug Allergies Allergy (Verified 06/25/22 16:00) Home Medications: Aspirin EC 81 mg [Ecotrin 81 mg] 81 mg PO DAILY 04/24/13 [History] Alendronate Sodium [Fosamax] 1 tab PO WEEKLY 06/25/22 [History] Citalopram Hydrobromide 20 mg* [ceLEXa 20 MG] 1 tab PO DAILY 06/25/22 [History] Duloxetine HCl [Cymbalta] 1 cap PO BID 06/25/22 [History] Ergocalciferol (Vitamin D2) [Vitamin D2] 1 cap PO WEEKLY 06/25/22 [History] Furosemide [Lasix] 1 tab PO DAILY 06/25/22 [History] Gabapentin [Neurontin ] 1 cap PO TID 06/25/22 [History] Levothyroxine Sodium 1 tab PO DAILY 06/25/22 [History] Hx Tetanus, Diphtheria Vaccination/Date Given: Yes Hx Influenza Vaccination/Date Given: Yes Hx Pneumococcal Vaccination/Date Given: No Immunizations Up to Date: Yes Travel Risk - International Travel Have you traveled outside of the country in past 3 weeks: No - Coronavirus Screening Are you exhibiting any of the following symptoms?: No Close contact with a COVID-19 positive Pt in past 14-21 Days: No - Vaccine Status Have you recieved a Covid-19 vaccination: Yes Vice President Of Contracts: Moderna - Vaccination Dates Date of 2cond Vaccination (if applicable): unknown - Review of Systems Constitutional: No Symptoms Eyes: No Symptoms Ears, Nose, & Throat: No Symptoms Respiratory: No Symptoms Cardiac: No Symptoms Abdominal/Gastrointestinal: No Symptoms Genitourinary Symptoms: No Symptoms Musculoskeletal: No Symptoms Skin: Other (skin tear) Neurological: No Symptoms - Past Medical History Pertinent Past Medical History: Yes Neurological History: No Pertinent History ENT History: No Pertinent History Cardiac History: Coronary Artery Disease, High Cholesterol, Hypertension, Myocardial Infarction ([place]) Respiratory History: No Pertinent History Endocrine Medical History: Hypothyroidism, Other Musculoskeletal History: Fibromyalgia, Rheumatoid Arthritis, Other GI Medical History: GERD, Gallbladder Disease History: Renal Disease Psycho-Social History: Anxiety, Depression Female Reproductive Disorders: Other Other Medical History: PATIENT HAD [place] 2010 AND HAD ONE STENT PLACED. AT THAT TIME FOUND OUT SHE ONE KIDNEY HAD DETERIORATED AND OTHER KIDNEY FUNCTIONING AT LESS THAN 50%. ALSO HAS SYSTEMIC LUPUS. 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 Hx of lupus - Past Surgical History Past Surgical History: Yes Neuro Surgical History: No Pertinent History Cardiac: Cardiac Catheterization, Cardiac Stent Respiratory: No Pertinent History Gastrointestinal: Other Genitourinary: No Pertinent History Musculoskeletal: Other Female Surgical History: Hysterectomy, Tubal Ligation Other Surgical History: colonoscopy, egd,ANSON x two,MARIVEL tubal, tumor removed from back of head. tendon removed from right hand. - Social History Smoking Status: Former smoker How long have you smoked: 30 Exposure to second hand smoke: No Drug Use: none Patient Lives Alone: No - Nursing Vital Signs Nursing Vital Signs: Initial Vital Signs Temperature 97.7 F 06/25/22 16:01 Pulse Rate 74 06/25/22 16:01 Respiratory Rate 17 06/25/22 16:01 Blood Pressure 161/96 06/25/22 16:01 O2 Sat by Pulse Oximetry 97 06/25/22 16:01 Pain Scale Pain Intensity 4 - Jesu Coma Score Best Eye Response (Jesu): (4) open spontaneously Best Verbal Response (Jesu): (5) oriented Best Motor Response ([place]): (6) obeys commands [place] Total: 15 - Physical Exam General Appearance: no apparent distress, alert Head Injury: no evidence of injury Eye Exam: PERRL/EOMI ENT Exam: airway nml Neck Exam: normal inspection, No tenderness Respiratory/Chest Exam: normal breath sounds, No chest tenderness, No respiratory distress Cardiovascular Exam: normal heart sounds, regular rate/rhythm Gastrointestinal Exam: soft, No tenderness, No distention, No guarding, No ecchymosis Back Exam: normal inspection, No vertebral tenderness Extremity Exam: normal inspection, normal range of motion, pelvis stable, lacerations, evidence of injury (left forearm), No deformities, No pain with movement Neurologic Exam: alert, oriented x 3, cooperative, sensation nml, No motor deficits Skin Exam: normal color, warm, dry SpO2: 97 - Course Nursing assessment & vital signs reviewed: Yes - Radiology Exams Left Forearm X-ray Interpretation: Reviewed by me, Negative, No Fracture Ordered Tests: Active Orders 24 hr Category Date Time Status FOREARM Stat Exams 06/25/22 16:13 Taken CBC Stat Lab 06/25/22 16:25 Completed CMP Stat Lab 06/25/22 16:25 Completed Medication Summary Discontinued Medications Generic Name Dose Route Start Last Admin Trade Name Freq PRN Reason Stop Dose Admin Bacitracin Zinc 0.9 each 06/25/22 16:26 06/25/22 16:28 Bacitracin Packet 1 Each Pckt TP 06/25/22 16:27 0.9 each STAT ONE Administration Bacitracin Zinc Confirm 06/25/22 16:27 Bacitracin Packet 1 Each Pckt Administered 06/25/22 16:28 Dose 1 each .ROUTE .STK-MED ONE Ketorolac Tromethamine 60 mg 06/25/22 16:19 06/25/22 16:28 Ketorolac Tromethamine 30 Mg/Ml Inj IM 06/25/22 16:20 60 mg STAT ONE Administration Ketorolac Tromethamine Confirm 06/25/22 16:27 Ketorolac Tromethamine 30 Mg/Ml Inj Administered 06/25/22 16:28 Dose 60 mg .ROUTE .STK-MED ONE Lab/Rad Data: Laboratory Result Diagrams 06/25/22 16:25 06/25/22 16:25 Laboratory Results 06/25/22 06/25/22 Range/Units 16:25 16:25 WBC 8.0 (4.0-10.5) x10^3/uL RBC 3.79 L (4.1-5.4) x10^6/uL Hgb 9.0 L (12.0-16.0) g/dL Hct 32.5 L (35-47) % MCV 85.8 (78-100) fL MCH 23.7 L (26-32) pg MCHC 27.7 L (32-36) g/dL RDW 16.5 H (11.5-14.0) % Plt Count 261 (150-450) x10^3/uL MPV 10.6 (7.5-11.0) fL Sodium 135 L (137-145) mmol/L Potassium 4.1 (3.5-5.1) mmol/L Chloride 105 (98-107) mmol/L Carbon Dioxide 27 (22-30) mmol/L Anion Gap 6.6 (5-15) MEQ/L BUN 14 (7-17) mg/dL Creatinine 1.10 H (0.52-1.04) mg/dL Estimated GFR 53.3 ML/MIN Glucose 82 (74-106) mg/dL Calcium 8.3 L (8.4-10.2) mg/dL Total Bilirubin 0.80 (0.2-1.3) mg/dL AST 22 (14-36) U/L ALT 16 (0-35) U/L Alkaline Phosphatase 45 (38-126) U/L Serum Total Protein 5.8 L (6.3-8.2) g/dL Albumin 3.4 L (3.5-5.0) g/dL - Progress Progress: improved, pain not gone completely - Departure Departure Disposition: Home Clinical Impression: Injury of forearm, left, superficial Qualifiers: Encounter type: initial encounter Qualified Code(s): S50.912A - Unspecified superficial injury of left forearm, initial encounter Fall at home Qualifiers: Encounter type: initial encounter Qualified Code(s): W19.XXXA - Unspecified fall, initial encounter; Y92.009 - Unspecified place in unspecified non- institutional (private) residence as the place of occurrence of the external cause Condition: Stable Critical Care Time: No Referrals: PEDRO JOYNER [Primary Care Provider] - Follow Up with PCP/3 days Instructions: Contusion (DC), Preventing Falls in Older Adults Additional Instructions: Discharge/Care Plan TONILiliaSHAYE BURDEN was seen on 06/25/22 in the Emergency Room. The patient was counseled regarding Diagnosis,Lab results, Imaging studies, need for follow up and when to return to the Emergency Room. Prescriptions given: Discharge Note I have spoken with the patient and/or caregivers. I have explained the patient's condition, diagnosis and treatment plan based on the information available to me at this time. I have answered the patient's and/or caregiver's questions and addressed any concerns. The patient and/or caregivers have as good understanding of the patient's diagnosis, condition and treatment plan as can be expected at this point. The vital signs have been stable. The patient's condition is stable and appropriate for discharge from the emergency department. The patient will pursue further outpatient evaluation with the primary care physician or other designated or consulting physician as outlined in the discharge instructions. The patient and/or caregivers are agreeable to this plan of care and follow-up instructions have been explained in detail. The patient and/or caregivers have received these instruction. The patient/and or caregivers are aware that any significant change in condition or worsening of symptoms should prompt an immediate return to this or the closest emergency department or call 911. SHAYE GODINEZE was seen on 06/25/22 n the Emergency Room. At that time you were treated for an emergent condition, during your visit Laboratory, Radiology and/or other procedures may have been ordered. It is very important that you follow-up with your Primary Care Physician PEDRO JOYNER within the next 24-48 hours to review your Emergency Room visit and the final results of testing that was ordered. Some test results such as Urine Cultures, Blood Cultures, and other cultures if ordered will not be finalized for 24-48 hours. If you do not have a Primary Care Provider please call the medical records department at [phone] ext [phone] to obtain a copy of your results or you may sign into our patient portal to obtain these results by visiting us @ [email or web address] and completing the following steps: 1. Click on the Patient Portal link 2. Click the Patient Self Enrollment Link to complete the enrollment form and entering your 3. Once the enrollment form is completed you will receive an email with a temporary ID and password at the email address you provided. 4. Next choose a user name and password. Your user name must be at least 4 characters long and your password must be at least 4 characters long. 5. Choose a security question from the list and provide your answer to the question. If you already have signed into the Health Portal you may access your Health Care Information 12/03 by the following steps: 1. Login to our website @ [email or web address] 2. Enter your original user name and password. FAQS The [facility] Health Portal is an online tool that contains your Lab Results, Radiology Reports, Visit History, Discharge Instructions and Health Summary Lab and Radiology Results will not be available for 72 hours on the portal. The Portal is a secure site, passwords are encryted and URLs are re-written so they cannot be copied and pasted. You and authorized family members are the only ones who can access your Portal. Also there is a timeout feature that protects your information if you leave the Portal page open. If you have technical difficulty please use the Contact Us link on the page this will allow you to submit any questions you have regarding the Portal or you may contact the Medical Record Department at [phone] ext [phone].
[2022-06-25] MEDS ORDERED: TORAdol 30 mg Injection ONE (16:27)
[2022-06-25] MEDS ORDERED: BACIGUENT PACKET ONE (16:27)
[2022-06-25 16:52] LABS: Hematocrit 32.5 % (35-47); Mean Cell Volume 85.8 fL (78-100); Mean Corpuscular Hemoglobin 23.7 pg (26-32); Mean Corpuscular Hgb Concent. 27.7 g/dL (32-36); Mean Platelet Volume 10.6 fL (7.5-11.0); Platelet Count 261 x10^3/uL (150-450); Red Blood Count 3.79 x10^6/uL (4.1-5.4); Red Cell Distribution Width 16.5 % (11.5-14.0)
[2022-06-25 17:01] LABS: ALBUMIN 3.4 g/dL (3.5-5.0); ANION GAP 6.6 MEQ/L (5-15); BILIRUBIN,TOTAL 0.8 mg/dL (0.2-1.3); Calcium 8.3 mg/dL (8.4-10.2); Creatinine 1 1.1 mg/dL (0.52-1.04); EST GLOMERULAR FILTRATION RATE 53.3 ML/MIN; Potassium 4.1 mmol/L (3.5-5.1); Total Protein 5.8 g/dL (6.3-8.2)
[2022-06-25 17:04] VITALS: BP 163/93; PULSE 64
[2022-06-25 17:10] VITALS: O2SAT 97
--- NOTE | 2022-06-25 18:33 | XRAY ---
Indication: Pain following fall. Comparison: None 2 view left forearm demonstrates osteopenia, radiocarpal degenerative joint space narrowing, and mild 1st metacarpal multangular degenerative changes. No other bony, articular, or soft tissue abnormalities.
[2022-06-25 18:56] LABS: Slide Review YES
== END 2022-06-25 17:22 | disposition home or self-care (01) ==
LOC: ED 15:45
DX: S51.812A Laceration without foreign body of left forearm, initial encounter (principal); W01.0XXA Fall on same level from slipping, tripping and stumbling without subsequent striking against object, initial encounter; E78.5 Hyperlipidemia, unspecified; I10 Essential (primary) hypertension; Z79.899 Other long term (current) drug therapy
CPT/HCPCS: 36415; 73090; 80053; 85027; 96372; 99283; J1885; A9270-GY

== ENCOUNTER 2022-06-28 10:36 | Day surgery (SDC) | payer MEDICARE ==
[2013-05-08 13:53] VITALS: BP 115/71
[2022-06-28] MEDS ORDERED: Depo-Medrol 40 MG/ML IM ONE (10:37)
[2022-06-28] MEDS ORDERED: BUPIVACAINE 0.5% VIAL IJ ONE (10:37)
[2022-06-28] MEDS ORDERED: DIPRIVAN 200 MG/20 ML IV ONE (11:21)
[2022-06-28] MEDS ORDERED: Xylocaine-Mpf 2% 5 Ml Vial ONE (11:22)
--- NOTE | 2022-06-28 12:38 | XRAY ---
Indication: Right SI joint and right hip injection. Intraoperative fluoroscopy provided for 27 seconds. 3 digital spot images obtained prone submitted for interpretation demonstrates posterior needle tip projecting over the right SI joint. Second needle tip lateral to right femur neck with small amount of contrast injected for needle tip placement. Correlate with intraoperative findings/report.
--- NOTE | 2022-06-28 13:29 | XRAY ---
27 seconds of fluoroscopy was used in surgery for a right sacroiliac joint and right intra-articular hip injection.
[2022-06-28] MEDS ORDERED: Lactated Ringers 1,000 ML IV ONE (15:19)
== END 2022-06-28 11:45 | disposition home or self-care (01) ==
LOC: SDC-PAIN 10:36
PROVIDERS: ATTEND Psychiatry & Neurology Pain Medicine
DX: M46.1 Sacroiliitis, not elsewhere classified (principal); M16.11 Unilateral primary osteoarthritis, right hip; Z79.899 Other long term (current) drug therapy
CPT/HCPCS: 20610; 27096; 73501; 77002; G0260; J1030; J2704; Q9966

== ENCOUNTER 2022-07-19 06:53 | Day surgery (SDC) | payer MEDICARE ==
[2013-05-08 13:53] VITALS: BP 115/71
[2022-07-19] MEDS ORDERED: LIDOCAINE HCL 2% 100 MG/5 ML IJ ONE (06:54)
[2022-07-19] MEDS ORDERED: DIPRIVAN 200 MG/20 ML IV ONE (08:48)
[2022-07-19] MEDS ORDERED: Lactated Ringers 1,000 ML IV ONE (10:26)
--- NOTE | 2022-07-19 19:21 | XRAY ---
Indication: Bilateral L4-S1 MBB. Intraoperative fluoroscopy provided for 37 seconds. Single digital spot submitted for interpretation demonstrates posterior needle tips projecting over the expected left and right L4-S1 nerve roots. Correlate with intraoperative findings/report. Incidental bilateral L4-L5 posterior fusion hardware.
--- NOTE | 2022-07-19 20:00 | XRAY ---
37 seconds fluoroscopy time in surgery for bilateral L4-S1 MBB.
== END 2022-07-19 09:20 | disposition home or self-care (01) ==
LOC: SDC-PAIN 06:53
PROVIDERS: ATTEND Psychiatry & Neurology Pain Medicine
DX: M47.816 Spondylosis without myelopathy or radiculopathy, lumbar region (principal); Z79.899 Other long term (current) drug therapy
CPT/HCPCS: 64493; 64494; 72020; 77002; J2704

== ENCOUNTER 2022-08-03 08:14 | Day surgery (SDC) | payer MEDICARE ==
[2013-05-08 13:53] VITALS: BP 115/71
[2022-08-03] MEDS ORDERED: BUPIVACAINE 0.5% VIAL IJ ONE (08:15)
[2022-08-03] MEDS ORDERED: LOPRESSOR INJECTION IV ONE (09:00)
[2022-08-03] MEDS ORDERED: DIPRIVAN 200 MG/20 ML IV ONE (10:11)
[2022-08-03] MEDS ORDERED: Lactated Ringers 1,000 ML IV ONE (10:29)
--- NOTE | 2022-08-03 11:57 | XRAY ---
Indication: Bilateral L4-S1 MBB. Intraoperative fluoroscopy provided for 34 seconds. 3 digital spot image submitted for interpretation demonstrates posterior needle tips projecting over the expected left and right L4-S1 nerve roots. Correlate with intraoperative findings/report. Incidental bilateral L4-L5 posterior fusion hardware.
--- NOTE | 2022-08-03 12:40 | XRAY ---
34 seconds fluoroscopy time in surgery for bilateral L4-S1 MBB.
== END 2022-08-03 10:40 | disposition home or self-care (01) ==
LOC: SDC-PAIN 08:14
PROVIDERS: ATTEND Psychiatry & Neurology Pain Medicine
DX: M47.816 Spondylosis without myelopathy or radiculopathy, lumbar region (principal); Z79.899 Other long term (current) drug therapy
CPT/HCPCS: 64493; 64494; 72020; 77002; J2704

== ENCOUNTER 2022-08-30 06:47 | Day surgery (SDC) | payer MEDICARE ==
[2013-05-08 13:53] VITALS: BP 115/71
[2022-08-30] MEDS ORDERED: BUPIVACAINE 0.5% VIAL IJ ONE (06:48)
[2022-08-30] MEDS ORDERED: LIDOCAINE HCL 1% 50 MG/5 ML VL PF IJ ONE (06:48)
[2022-08-30] MEDS ORDERED: Depo-Medrol 40 MG/ML IM ONE (06:48)
[2022-08-30] MEDS ORDERED: DIPRIVAN 200 MG/20 ML IV ONE (08:07)
[2022-08-30] MEDS ORDERED: Xylocaine-Mpf 2% 5 Ml Vial ONE (08:11)
[2022-08-30] MEDS ORDERED: Lactated Ringers 1,000 ML IV ONE (08:31)
--- NOTE | 2022-08-30 10:16 | XRAY ---
Indication: Right L4-S1 RFA. Intraoperative fluoroscopy provided for 1 minute 7 seconds. 7 digital spot image submitted for interpretation demonstrates posterior needle tips projecting over the expected right L4-S1 nerve roots. Correlate with intraoperative findings/report. Incidental bilateral L4-L5 posterior fusion hardware.
--- NOTE | 2022-08-30 10:24 | XRAY ---
One minute and 7 seconds of fluoroscopy was used in surgery for a right L4-S1 RFA.
== END 2022-08-30 08:50 | disposition home or self-care (01) ==
LOC: SDC-PAIN 06:47
PROVIDERS: ATTEND Psychiatry & Neurology Pain Medicine
DX: M47.816 Spondylosis without myelopathy or radiculopathy, lumbar region (principal); Z79.899 Other long term (current) drug therapy
CPT/HCPCS: 64635; 64636; 72100; 77002; J1030; J2001; J2704

== ENCOUNTER 2022-09-06 09:02 | Day surgery (SDC) | payer MEDICARE ==
[2013-05-08 13:53] VITALS: BP 115/71
[2022-09-06] MEDS ORDERED: LIDOCAINE HCL 1% 50 MG/5 ML VL PF IJ ONE (09:03)
[2022-09-06] MEDS ORDERED: BUPIVACAINE 0.5% VIAL IJ ONE (09:03)
[2022-09-06] MEDS ORDERED: Depo-Medrol 40 MG/ML IM ONE (09:03)
[2022-09-06] MEDS ORDERED: DIPRIVAN 200 MG/20 ML IV ONE (10:37)
--- NOTE | 2022-09-06 11:38 | XRAY ---
Indication: Left L4-S1 RFA. Intraoperative fluoroscopy provided for 26 seconds. 3 digital spot image submitted for interpretation demonstrates posterior needle tips projecting over the expected left L4-S1 nerve roots. Correlate with intraoperative findings/report. Incidental bilateral L4-L5 posterior fusion hardware.
--- NOTE | 2022-09-06 11:47 | XRAY ---
26 seconds of fluoroscopy was used in surgery for a left L4-S1 RFA.
[2022-09-06] MEDS ORDERED: Lactated Ringers 1,000 ML IV ONE (13:25)
== END 2022-09-06 11:10 | disposition home or self-care (01) ==
LOC: SDC-PAIN 09:02
PROVIDERS: ATTEND Psychiatry & Neurology Pain Medicine
DX: M47.816 Spondylosis without myelopathy or radiculopathy, lumbar region (principal); Z79.899 Other long term (current) drug therapy
CPT/HCPCS: 64635; 64636; 72100; 77002; J1030; J2001; J2704

== ENCOUNTER 2022-09-26 13:04 | Emergency (ER) | payer MEDICARE ==
[2022-09-26 13:20] VITALS: PULSE 70; O2SAT 97
--- NOTE | 2022-09-26 13:21 | ERPHSYRPT ---
- History of Present Illness Time Seen by Provider: 09/26/22 13:21 Source: patient Exam Limitations: no limitations Patient Subjective Stated Complaint: Pt states "I was at a ball game and when I was walking down the bleechers, I got my leg stuck between them and did somet ilan to my knee." Triage Nursing Assessment: Pt presented alert and oriented X 3, skin pwd.PT ambulates with a limp. PT right knee swollen, tender, no bruising noted. CSM X 4 Physician History: This is a 62-year-old white female patient of Dr. Nerissa Joyner and has medical problems that include hypothyroidism, coronary artery disease with cardiac stents, hyperlipidemia, hypertension, fibromyalgia, renal disease and gastroesophageal reflux disease and presents with right anterior knee swelling that occurred this past Sunday prior to evaluation. Patient was walking down the bleachers when her foot got caught in between the bleachers and she twisted her right knee. There has been persistent pain and some swelling present. Patient denies chest pain she denies shortness of breath. Patient is not on any anticoagulation therapy. She is not on any narcotic pain medicine. Method of Injury: fell Occurred: days ago (2) Quality: constant, aching Severity of Pain-Max: moderate Severity of Pain-Current: mild Lower Extremities Pain: knee: right (moderate achiness anteriorly) Modifying Factors: Improves With: movement Associated Symptoms: other (Patient can bear weight and has been ambulating but there is tenderness right knee anteriorly) Allergies/Adverse Reactions: No Known Drug Allergies Allergy (Verified 06/25/22 16:00) Home Medications: Aspirin EC 81 mg [Ecotrin 81 mg] 81 mg PO DAILY 04/24/13 [History] Ergocalciferol (Vitamin D2) [Vitamin D2] 1 cap PO WEEKLY 06/25/22 [History] Gabapentin [Neurontin ] 1 cap PO TID 06/25/22 [History] Levothyroxine Sodium 1 tab PO DAILY 06/25/22 [History] Prednisone [Kayla] 5 mg PO DAILY 09/26/22 [History] Hx Tetanus, Diphtheria Vaccination/Date Given: Yes Hx Influenza Vaccination/Date Given: Yes Hx Pneumococcal Vaccination/Date Given: No Immunizations Up to Date: Yes Travel Risk - International Travel Have you traveled outside of the country in past 3 weeks: No - Coronavirus Screening Are you exhibiting any of the following symptoms?: No Close contact with a COVID-19 positive Pt in past 14-21 Days: No - Vaccine Status Have you recieved a Covid-19 vaccination: Yes Vision Specialist: Moderna - Vaccination Dates Date of 2cond Vaccination (if applicable): unknown - Review of Systems Constitutional: No Symptoms Eyes: No Symptoms Ears, Nose, & Throat: No Symptoms Respiratory: No Symptoms Cardiac: No Symptoms Abdominal/Gastrointestinal: No Symptoms Genitourinary Symptoms: No Symptoms Musculoskeletal: Injury (Anterior aspect right knee with bruising and swelling present) Skin: No Symptoms Neurological: No Symptoms Psychological: No Symptoms Endocrine: No Symptoms Hematologic/Lymphatic: No Symptoms Immunological/Allergic: No Symptoms All Other Systems: Reviewed and Negative - Past Medical History Pertinent Past Medical History: Yes Neurological History: No Pertinent History ENT History: No Pertinent History Cardiac History: Coronary Artery Disease, High Cholesterol, Hypertension, Myocardial Infarction (AR) Respiratory History: No Pertinent History Endocrine Medical History: Hypothyroidism, Other Musculoskeletal History: Fibromyalgia, Rheumatoid Arthritis, Other GI Medical History: GERD, Gallbladder Disease History: Renal Disease Psycho-Social History: Anxiety, Depression Female Reproductive Disorders: Other Other Medical History: PATIENT HAD AR 2010 AND HAD ONE STENT PLACED. AT THAT TIME FOUND OUT SHE ONE KIDNEY HAD DETERIORATED AND OTHER KIDNEY FUNCTIONING AT LESS THAN 50%. ALSO HAS SYSTEMIC LUPUS. 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 Hx of lupus - Past Surgical History Past Surgical History: Yes Neuro Surgical History: No Pertinent History Cardiac: Cardiac Catheterization, Cardiac Stent Respiratory: No Pertinent History Gastrointestinal: Other Genitourinary: No Pertinent History Musculoskeletal: Other Female Surgical History: Hysterectomy, Tubal Ligation Other Surgical History: colonoscopy, egd,ANSON x two,MARIVEL tubal, tumor removed from back of head. tendon removed from right hand. - Social History Smoking Status: Former smoker How long have you smoked: 30 Exposure to second hand smoke: No Drug Use: none Patient Lives Alone: Yes - Nursing Vital Signs Nursing Vital Signs: Initial Vital Signs Temperature 96.7 F 09/26/22 13:16 Pulse Rate 70 09/26/22 13:16 Respiratory Rate 20 09/26/22 13:16 Blood Pressure 136/63 09/26/22 13:16 O2 Sat by Pulse Oximetry 97 09/26/22 13:16 Pain Scale Pain Intensity 5 - Physical Exam General Appearance: no apparent distress, alert, anxiety Eyes, Ears, Nose, Throat Exam: normal ENT inspection, moist mucous membranes Neck Exam: normal inspection, non-tender, supple, full range of motion Cardiovascular/Respiratory Exam: chest non-tender, no respiratory distress Gastrointestinal/Abdominal Exam: non-tender Back Exam: normal inspection, normal range of motion, No CVA tenderness, No vertebral tenderness Hips Exam: bilateral: non-tender, normal inspection, normal range of motion, no evidence of injury Legs Exam: bilateral leg: non-tender, normal inspection, normal range of motion, no evidence of injury Knees Exam: right knee: ecchymosis (Anteriorly), soft tissue tenderness (Anteriorly), swelling (Anteriorly), left knee: non-tender, normal inspection, normal range of motion, no evidence of injury Ankle Exam: bilateral ankle: non-tender, normal inspection, normal range of motion, no evidence of injury Foot Exam: bilateral foot: non-tender, normal inspection, normal range of motion, no evidence of injury Neuro/Tendon Exam: normal sensation, normal motor functions, normal tendon functions Mental Status Exam: alert, oriented x 3, cooperative Skin Exam: normal color, warm, dry SpO2 Interpretation: normal SpO2: 97 O2 Delivery: Room Air - Course Nursing assessment & vital signs reviewed: Yes Ordered Tests: Active Orders 24 hr Category Date Time Status KNEE (3 VIEWS) Stat Exams 09/26/22 13:21 Completed - Progress Progress: pain not gone completely Progress Note: 09/26/22 13:57 X-ray of the right knee report was reviewed by me which show degenerative changes and a nonspecific, small effusion present. There is no fracture and no dislocation present. Medical decision making: This patient's medical issue is of low complexity. This is based on obtaining history directly from the patient, review of the patient's medical history, medication list and drug allergy list. It is also based on the physical exam findings. This prompted me to perform an x-ray of the right knee. I reviewed the report of the x-ray that was interpreted by the radiologist. There is no acute fracture or dislocation present. The discharge plan was discussed with the patient which includes wearing the right knee brace for comfort, ambulating using crutches if needed, ice pack to area on the anterior right knee 3 times a day for the next 48 hours and to take the pain medicine as prescribed. In addition, patient was told that she needed to follow-up with the [facility] orthopedic clinic for further evaluation management. Counseled pt/family regarding: diagnosis, need for follow-up, rad results - Departure Departure Disposition: Home Clinical Impression: Right anterior knee pain, Swelling of right knee joint Condition: Stable Critical Care Time: No Referrals: PEDRO JOYNER [Primary Care Provider] - Follow up/PCP as directed Additional Instructions: Ice pack to the right knee anteriorly 3 times a day for the next 48 hours. Follow-up, tomorrow morning, at [facility] orthopedic clinic. This is a walk-in clinic and you do not need to have a scheduled appointment. Make sure you are there at 8 AM tomorrow morning for further evaluation and management. Wear the knee brace and use the crutches to ambulate as desired. T tennille your medication as prescribed. Prescriptions: Oxycodone HCl/Acetaminophen [Percocet 5-325 mg Tablet] 1 each PO Q8H PRN PRN #6 tablet MDD 3 PRN Reason: Moderate To Severe Pain
--- NOTE | 2022-09-26 13:42 | XRAY ---
Indication: Pain following fall 2 days ago. Comparison: None 3 view right knee demonstrates osteopenia, moderate tricompartmental degenerative changes, small nonspecific effusion, small well-circumscribed posterior knee soft tissue heterotopic ossifications, and diffuse scattered vascular calcifications. No other bony, articular, or soft tissue abnormalities.
[2022-09-26] MEDS ORDERED: PERCOCET TABLET 5/325MG PO STA (14:03)
[2022-09-26 14:09] VITALS: BP 128/64
[2022-09-26] MEDS ORDERED: PERCOCET TABLET 5/325MG ONE (14:09)
== END 2022-09-26 14:25 | disposition home or self-care (01) ==
LOC: ED 13:04
DX: M25.561 Pain in right knee (principal); M25.461 Effusion, right knee; E78.5 Hyperlipidemia, unspecified; I10 Essential (primary) hypertension; Z79.891 Long term (current) use of opiate analgesic; Z79.899 Other long term (current) drug therapy
CPT/HCPCS: 73562; 99283; A9270-GY

== ENCOUNTER 2023-01-05 06:42 | Day surgery (SDC) | payer MEDICARE ==
[~2023-01-05 06:42] MED LIST changes: -CEFAZOLIN 2 GM-D5W BAG** 2 GM/50 ML ML IV SCH; +Lactated Ringers 1,000 ML IV ONE; -Lactated Ringers 1,000 ML IV SCH; +Marcaine Mpf 0.5% Vial 30 Ml ONE; +Xylocaine 1% Vial 30 ML PF IJ ONE
[2023-01-05] MEDS ORDERED: CEFAZOLIN 2 GM-D5W BAG** 2 GM/50 ML ML IV SCH (07:00)
[2023-01-05] MEDS ORDERED: Lactated Ringers 1,000 ML IV SCH (07:00)
[2023-01-05] MEDS ORDERED: Lactated Ringers 1,000 ML IV ONE (07:19)
[2023-01-05] MEDS ORDERED: CEFAZOLIN 2 GM-D5W BAG** 2 GM/50 ML ML IV ONE (07:19)
[2023-01-05 07:42] LABS: Hematocrit 40.5 % (35-47); Hemoglobin 12.3 g/dL (12.0-16.0); Mean Corpuscular Hemoglobin 28.5 pg (26-32); Mean Corpuscular Hgb Concent. 30.4 g/dL (32-36); Platelet Count 213 x10^3/uL (150-450); Red Blood Count 4.31 x10^6/uL (4.1-5.4); Red Cell Distribution Width 22.6 % (11.5-14.0)
[2023-01-05 07:59] LABS: INR 0.9 (0.8-3.0); PROTIME 9.9 SECONDS (9.4-12.5); PTT 21.4 SECONDS (25.1-36.5)
[2023-01-05] MEDS ORDERED: Versed 2 MG/2 ML Injection IV PRN (07:59)
[2023-01-05] MEDS ORDERED: Versed 2 MG/2 ML Injection ONE (08:01)
[2023-01-05 08:37] LABS: ALBUMIN 3.6 g/dL (3.5-5.0); ALKALINE PHOSPHATASE 40 U/L (38-126); ANION GAP 12.7 MEQ/L (5-15); BLOOD UREA NITROGEN 17 mg/dL (7-17); CHLORIDE 106 mmol/L (98-107); Calcium 8.5 mg/dL (8.4-10.2); Carbon Dioxide 26 mmol/L (22-30); Creatinine 1 0.92 mg/dL (0.52-1.04); EST GLOMERULAR FILTRATION RATE > 60.0 ML/MIN; Glucose 108 mg/dL (74-106); Potassium 4.8 mmol/L (3.5-5.1); SGOT/AST 27 U/L (14-36); SGPT/ALT 19 U/L (0-35); SODIUM 140 mmol/L (137-145); Total Protein 6.5 g/dL (6.3-8.2)
[2023-01-05 08:42] LABS: Slide Review YES
[2023-01-05] MEDS ORDERED: Zofran 4 MG/2 ML VIAL ONE (08:59)
[2023-01-05] MEDS ORDERED: Quelicin Fliptop 200 MG/10 ML ONE (08:59)
[2023-01-05] MEDS ORDERED: Decadron 4 MG INJ ONE (08:59)
[2023-01-05] MEDS ORDERED: Xylocaine-Mpf 2% 5 Ml Vial ONE (08:59)
[2023-01-05] MEDS ORDERED: DIPRIVAN 200 MG/20 ML IV ONE (08:59)
[2023-01-05] MEDS ORDERED: SUBLIMAZE 100 MCG/2 ML ONE (09:01)
[2023-01-05] MEDS ORDERED: Pre-Attached Lta Kit TP ONE (09:06)
[2023-01-05] MEDS ORDERED: OFIRMEV 100 ML IV ONE (09:06)
[2023-01-05] MEDS ORDERED: ATROPINE SULFATE 1MG ONE (09:59)
[2023-01-05] MEDS ORDERED: Ephedrine Sulfate 50 MG/ML ONE (10:34)
[2023-01-05] MEDS ORDERED: Proair Hfa MDI IH ONE (11:51)
--- NOTE | 2023-01-05 11:56 | XRAY ---
Indication: Right foot plantar plate repair. Fausto osteotomy. Hammertoe correction. Intraoperative fluoroscopy provided for 28 seconds. 16 digital spot images submitted for interpretation demonstrates 2nd/3rd metatarsal head Fausto osteotomy and fusion 2nd-4th phalanges all with intact hardware. Correlate with intraoperative findings/report.
[2023-01-05 12:49] VITALS: BP 148/80; PULSE 54; O2SAT 96
--- NOTE | 2023-01-08 14:04 | OP ---
SURGERY DATE/TIME: 01/05/2023 0923 PREOPERATIVE DIAGNOSES: 1) Right rheumatoid arthritis. 2) Rheumatoid foot. 3) Acquired hammer toes for the right foot. 4) Ligament rupture. 5) Pain right foot. 6) Plantar plate tear. 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 POSTOPERATIVE DIAGNOSES: 1) Right rheumatoid arthritis. 2) Rheumatoid foot. 3) Acquired hammer toes for the right foot. 4) Ligament rupture. 5) Pain right foot. 6) Plantar plate tear. 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 PROCEDURES: 1) Hammer toe correction 2, 3, 4 with proximal interphalangeal joint arthrodesis. 2) Derotational arthroplasty. 3) Fausto osteotomy of metatarsals 2 and 3. 4) Plantar plate repair to the second metatarsophalangeal joint. SURGEON: Guy Lehman DPM. CAMPAIGN ADVISOR: None. ANESTHESIA: General. HEMOSTASIS: Ankle tourniquet set to 250 mm of Mercury for total of 70 total tourniquet minutes. ESTIMATED BLOOD LOSS: Approximately 5 cc. INJECTABLES: 30 cc of a 1:1 mixture of 1% lidocaine plain and 0.5% bupivacaine plain injected in an ankle block-type fashion to the right lower extremity. INDICATION FOR SURGERY: Gabby is a very pleasant 62-year-old female very well known to my service for correction of hammer toes of the left foot. The patient had some improvement to her position overall. However, the patient found the hardware to be irritating associated with the pin and for that reason the pins were placed and there is some transverse plane deformity noted to her left foot. At this time the patient's right lower extremity is causing her significant amount of pain and she would like to proceed with this side. I had a discussion with the patient in regards to expectations following the procedure. The patient requested that there not be any pins placed and for that reason we will try with soft tissue balancing and Fausto osteotomy to get the position of her toes in a normal position. The patient understands all risks, complications and benefits of surgical intervention including but not limited to infection, hematoma, seroma, possibility of delayed wound healing, nonwound healing and possibility of failure of surgical intervention, possible need for surgical reoperation at a later date. There have been no guarantees offered as to the outcome of surgical intervention. Plenty of time was allowed for the patient to ask questions which were answered to her apparent satisfaction. It is with that we decided to proceed. DESCRIPTION OF PROCEDURE AND FINDINGS: The patient was brought into the OR and placed on the OR table in the supine position. At this time, general anesthesia was administered until the patient was sedated. A well-padded tourniquet applied to the right ankle. The right lower extremity was prepped and draped in the typical sterile fashion and lowered onto the surgical field. At this time an Esmarch was utilized to exsanguinate the foot and the tourniquet was inflated to 250 mm of Mercury. At this time attention was directed to the dorsal aspect of the second metatarsophalangeal joint. At this time a 15 blade was utilized to carry the incision down to the level of the extensor tendon where a Z-lengthening osteotomy was utilized to gain access to metatarsophalangeal joint this was retracted out of the site in order to perform the Fausto osteotomy. An 18 blade sagittal saw was then utilized to make a resection of the metatarsal head parallel with the weightbearing surface of the second metatarsal this was pushed back and shifted over laterally shifting the position of the crossover toe into a more lateral orientation this was pin and 2.0 x 14 snap-off screw from [employer] was utilized to secure it. Following this the temporary fixation pin was removed. A 2 mm drill was utilized to make holes through the top of the second metatarsal head coming out plantarly and the BroadBand was secured around the top of the metatarsal head. The planter plate was encountered and the tear identified. The tear was then completed and the 2-0 drill was then utilized to make two holes over the top of the base of the proximal phalanx. At this time a suture passer was introduced from the distal tip of the second proximal phalanx to the plantar aspect pulling the BroadBand through the site and securing it over the top. A Katia test was performed at this time and was determined to be repaired this brought the plantar plate in this repair. Following this another skin incision was made to the third metatarsal head where the same Fausto procedure was performed utilizing another 2-0 x 14 mm snap-off screw. At this time the metatarsal parabola was assessed and deemed to be in an adequate position. Following this the position of the metatarsals was adequate and the hammer toes were all that needed to be corrected. Following this a similar procedure was carried out for digits 2, 3 and 4. At this time horizontal incisions were made down to the level of the capsule. The capsule was released with a J-stroke at the proximal interphalangeal joint. At this time the proximal phalangeal heads were then resected utilizing 18 sagittal saw and then the base of the middle phalanx was then resected off. K-wires were retrograded out of the distal tip of the toe and then anterograded down the dorsal longitudinal cortex of digits 2, 3 and 4 respectively being sure to be intramedullary. The size of these screws each were 3.0 x 40 x2 for the second and third digits and 2.5 x 26 for the fourth digit. At this time a derotational arthroplasty was performed at the fifth digit and the proximal phalanx was resected utilizing the 18 mm sagittal saw so that the toe was in a more relaxed position. Derotational arthroplasty put the toe in adequate position. Following this the foot was loaded and all toes appeared to be in the same plane and without any transverse plane deformity. Following this all of the tendons were repaired utilizing 4-0 Monocryl. The subcutaneous skin edges were coapted utilizing 4-0 Monocryl in a simple buried-type fashion and the skin was then coapted utilizing a 3-0 Nylon in horizontal mattress-type fashion. Following this the tourniquet was let down at a total of 71 total tourniquet minutes. A dressing consisting of Betadine, Adaptic, 4x4, Kerlix and HETAL was then applied to the patient's right lower extremity. The patient was then reversed from anesthesia and returned to the postoperative anesthesia care unit with vital signs stable and vascular status intact. The patient handled the anesthesia as well as the procedure without significant complication. Postoperative orders as indicated in the patient's discharge chart.
== END 2023-01-05 13:10 | disposition home or self-care (01) ==
LOC: SDC 06:42
PROVIDERS: ATTEND Podiatrist Foot & Ankle Surgery
DX: M06.871 Other specified rheumatoid arthritis, right ankle and foot (principal); M20.41 Other hammer toe(s) (acquired), right foot; S93.621A Sprain of tarsometatarsal ligament of right foot, initial encounter; M79.671 Pain in right foot; S93.529A Sprain of metatarsophalangeal joint of unspecified toe(s), initial encounter; M20.61 Acquired deformities of toe(s), unspecified, right foot
CPT/HCPCS: 28270; 28285; 28308; 36415; 73630; 76000; 80053; 85027; 85610; 85730; C1713; J0330; J0461; J0690; J1100; J2001; J2250; J2405; J2704; J3010; A9270-GY

== ENCOUNTER 2024-04-02 12:19 | Day surgery (SDC) | payer MEDICARE ==
[2013-05-08 13:53] VITALS: BP 115/71
[2024-04-02] MEDS ORDERED: Sodium Chloride 0.9(Preservative Free) 10 ML IJ ONE (12:20)
[2024-04-02] MEDS ORDERED: Decadron 4 MG INJ IV ONE (12:20)
[2024-04-02] MEDS ORDERED: DIPRIVAN 200 MG/20 ML IV ONE (13:50)
[2024-04-02] MEDS ORDERED: MORPHINE SULFATE 2 MG INJ ONE (14:14)
--- NOTE | 2024-04-02 14:49 | XRAY ---
Indication: Right L4-S1 transforaminal ANSON. Intraoperative fluoroscopy was provided for 31 seconds. 4 digital spot image submitted for interpretation demonstrates posterior needle tips projecting over the expected right L4 and L5 nerve roots. Small amount of contrast injected for needle tip placement. Correlate with intraoperative findings/report. Incidental bilateral L4-L5 posterior fusion hardware.
[2024-04-02] MEDS ORDERED: Lactated Ringers 1,000 ML IV ONE (15:02)
--- NOTE | 2024-04-02 15:13 | XRAY ---
31 seconds of fluoroscopy was used in surgery for a right L4-S1 transforaminal ANSON.
== END 2024-04-02 14:38 | disposition home or self-care (01) ==
LOC: SDC-PAIN 12:19
PROVIDERS: ATTEND Psychiatry & Neurology Pain Medicine
DX: M54.16 Radiculopathy, lumbar region (principal)
CPT/HCPCS: 64483; 64484; 72100; 77003; J1100; J2270; J2704; Q9966

== ENCOUNTER 2024-05-01 09:59 | Day surgery (SDC) | payer MEDICARE ==
[2013-05-08 13:53] VITALS: BP 115/71
[2024-05-01] MEDS ORDERED: Decadron 4 MG INJ IV ONE (10:00)
[2024-05-01] MEDS ORDERED: Sodium Chloride 0.9(Preservative Free) 10 ML IJ ONE (10:00)
[2024-05-01] MEDS ORDERED: DIPRIVAN 200 MG/20 ML IV ONE (12:01)
[2024-05-01] MEDS ORDERED: Xylocaine-Mpf 2% 5 Ml Vial ONE (12:03)
--- NOTE | 2024-05-01 12:47 | XRAY ---
24 seconds of fluoroscopy was used in surgery for a left L4-S1 transforaminal ANSON.
--- NOTE | 2024-05-01 12:47 | XRAY ---
Indication: Left L4-S1 transforaminal ANSON. Intraoperative fluoroscopy provided for 24 seconds. 7 digital spot images submitted for interpretation demonstrates posterior needle tips projecting over the expected left L4 and L5 nerve roots. Small amount of contrast injected for needle tip placement. Correlate with intraoperative findings/report. Incidental bilateral L4-L5 posterior fusion hardware.
[2024-05-01] MEDS ORDERED: Lactated Ringers 1,000 ML IV ONE (14:03)
== END 2024-05-01 12:29 | disposition home or self-care (01) ==
LOC: SDC-PAIN 09:59
PROVIDERS: ATTEND Psychiatry & Neurology Pain Medicine
DX: M54.16 Radiculopathy, lumbar region (principal)
CPT/HCPCS: 64483; 64484; 72100; 77003; J1100; J2704; Q9966

== ENCOUNTER 2024-06-11 12:43 | Day surgery (SDC) | payer MEDICARE ==
[2013-05-08 13:53] VITALS: BP 115/71
[2024-06-11] MEDS ORDERED: Sodium Chloride 0.9(Preservative Free) 10 ML IJ ONE (12:44)
[2024-06-11] MEDS ORDERED: Depo-Medrol 40 MG/ML IM ONE (12:44)
[2024-06-11] MEDS ORDERED: BUPIVACAINE 0.5% VIAL IJ ONE (12:44)
[2024-06-11] MEDS ORDERED: DIPRIVAN 200 MG/20 ML IV ONE (14:29)
[2024-06-11] MEDS ORDERED: Sodium Chloride 0.9% 250 ML 250 ML IV ONE (16:02)
--- NOTE | 2024-06-11 16:38 | XRAY ---
Indication: Caudal ANSON. Intraoperative fluoroscopy provided for 17 seconds. 4 digital spot image submitted for interpretation demonstrates caudal needle tip projecting mid sacrum. Small amount of contrast injected for needle tip placement. Correlate with intraoperative findings/report. Incidental bilateral L4-L5 fusion hardware.
--- NOTE | 2024-06-11 16:41 | XRAY ---
Indication: Left greater trochanter bursa injection. Intraoperative fluoroscopy provided for 5 seconds. Single digital spot image obtained prone submitted for interpretation demonstrates needle tip projecting lateral to left greater trochanter. Small amount of contrast injected for needle tip placement. Correlate with intraoperative findings/report.
--- NOTE | 2024-06-11 16:45 | XRAY ---
17 seconds of fluoroscopy was used in surgery for a caudal ANSON.
--- NOTE | 2024-06-11 16:45 | XRAY ---
5 seconds of fluoroscopy was used in surgery for a left greater trochanteric bursa injection.
== END 2024-06-11 15:09 | disposition home or self-care (01) ==
LOC: SDC-PAIN 12:43
PROVIDERS: ATTEND Psychiatry & Neurology Pain Medicine
DX: M54.16 Radiculopathy, lumbar region (principal); M16.12 Unilateral primary osteoarthritis, left hip
CPT/HCPCS: 20610; 62323; 72220; 73501; 77002; 77003; J2704; Q9966

== ENCOUNTER 2024-11-26 12:35 | Day surgery (SDC) | payer MEDICARE ==
[2013-05-08 13:53] VITALS: BP 115/71
[2024-11-26] MEDS ORDERED: Depo-Medrol 40 MG/ML IM ONE (12:36)
[2024-11-26] MEDS ORDERED: BUPIVACAINE 0.5% VIAL IJ ONE (12:36)
[2024-11-26] MEDS ORDERED: propofoL IV ONE (15:12)
--- NOTE | 2024-11-26 16:48 | XRAY ---
Indication: Right ischial bursa injection. Intraoperative fluoroscopy provided for 9 seconds. Single digital spot image submitted for interpretation demonstrates posterior needle tip projecting inferior to right ischial tuberosity. Small amount of contrast injected for needle tip placement. Correlate with intraoperative findings/report.
--- NOTE | 2024-11-26 16:50 | XRAY ---
9 seconds of fluoroscopy was used in surgery for a right ischial bursa.
== END 2024-11-26 15:58 | disposition home or self-care (01) ==
LOC: SDC-PAIN 12:35
PROVIDERS: ATTEND Psychiatry & Neurology Pain Medicine
DX: M70.71 Other bursitis of hip, right hip (principal)
CPT/HCPCS: 20610; 72170; 77002; J2704; Q9966